=== PATIENT | male | born 1935 | race Caucasian/White ===

== ENCOUNTER → 2017-05-15 | Outpatient (REF) | payer MEDICARE ==
[2017-05-15 14:29] LABS: ERYTHROCYTE SEDIMENTATION RATE 51 mm/hr (0-20)
[2017-05-15 14:42] LABS: URINE TOTAL PROTEIN 54.8 MG/DL (0-12)
[2017-05-15 14:47] LABS: IMMUNOGLOBULIN G 360 MG/DL (681-1648); PROSTATIC SPECIFIC AG MONITOR 1.17 NG/ML (< 4.0); TOTAL PROTEIN 6.8 GM/DL (6.4-8.2)
[2017-05-15 15:39] LABS: IMMUNOGLOBULIN M 12.1 MG/DL (40-230)
[2017-05-17 00:06] LABS: BETA 2 MICROGLOBULIN 2.9 mg/L (0.6-2.4)
[2017-05-17 00:06] LABS: FREE KAPPA LIGHT CHAINS SERUM 376.9 mg/L (3.3-19.4); KAPPA/LAMBDA RATIO SERUM 41.88 (0.26-1.65)
[2017-05-20 11:14] LABS: ALBUMIN % 61.8 % (55.8-66.1); ALPHA-1-GLOBULIN % 4.6 % (2.9-4.9); ALPHA-2-GLOBULINS % 13.1 % (7.1-11.8)
[2017-05-20 11:15] LABS: ALPHA-1-GLOBULINS 0.31 GM/DL (0.17-0.41); ALPHA-2-GLOBULINS 0.89 GM/DL (0.42-0.99); BETA-1-GLOBULINS 0.41 GM/DL (0.28-0.60); BETA-1-GLOBULINS % 6.1 % (4.7-7.2); BETA-2-GLOBULINS 0.41 GM/DL (0.19-0.55); GAMMA GLOBULIN % 8.4 % (11.1-18.8); GAMMA GLOBULINS 0.57 GM/DL (0.65-1.58)
== END ==
LOC: M LAB REF 13:17
DX: D64.9 Anemia, unspecified (principal); Z12.5 Encounter for screening for malignant neoplasm of prostate
CPT/HCPCS: 84165

== ENCOUNTER → 2017-05-28 | Outpatient (REF) | payer MEDICARE ==
[2017-05-28 17:29] LABS: TOTAL PROTEIN,RANDOM URINE 56.5 MG/DL (0.0-12.0)
[2017-05-29 14:24] LABS: IMMUNOTYPING SERUM IGA ABNORMAL (NORMAL); IMMUNOTYPING SERUM KAPPA ABNORMAL (NORMAL)
[2017-05-29 14:26] LABS: IMMUNOTYPE URINE KAPPA ABNORMAL (NORMAL)
[2017-05-31 08:06] LABS: IMMUNOGLOBULIN D 0.14 mg/dL (<14.11)
== END ==
LOC: M LAB REF 16:42
DX: D64.9 Anemia, unspecified (principal)
CPT/HCPCS: 82784

== ENCOUNTER 2017-06-27 06:25 | Day surgery (SDC) | payer MEDICARE ==
[2017-06-27] MEDS: NS 1,000 ML IV (06:30)
[2017-06-27] MEDS ORDERED: PROPOFOL 200 MG/20 ML VIAL As Ordered (06:55)
== END 2017-06-27 09:20 | disposition home or self-care (01) ==
LOC: M OPP 06:25
DX: Z12.11 Encounter for screening for malignant neoplasm of colon (principal); D49.0 Neoplasm of unspecified behavior of digestive system; D12.3 Benign neoplasm of transverse colon; K62.1 Rectal polyp; K57.30 Diverticulosis of large intestine without perforation or abscess without bleeding; K64.8 Other hemorrhoids; I10 Essential (primary) hypertension; E78.5 Hyperlipidemia, unspecified; K21.9 Gastro-esophageal reflux disease without esophagitis; R12 Heartburn; D64.9 Anemia, unspecified; R06.02 Shortness of breath; K44.9 Diaphragmatic hernia without obstruction or gangrene; N40.1 Benign prostatic hyperplasia with lower urinary tract symptoms; Z85.820 Personal history of malignant melanoma of skin; Z88.1 Allergy status to other antibiotic agents; Z88.8 Allergy status to other drugs, medicaments and biological substances; Z79.82 Long term (current) use of aspirin; Z79.899 Other long term (current) drug therapy
CPT/HCPCS: 45385

== ENCOUNTER 2017-10-08 17:28 | Emergency (ER) | payer MEDICARE ==
[2017-10-08 18:36] LABS: HEMATOCRIT 28.1 % (42.0-52.0); MEAN CORPUSCULAR HEMOGLOBIN 29.1 pg (27.0-33.0); MEAN CORPUSCULAR VOLUME 90.9 fl (80.0-96.0); PLATELET COUNT, AUTOMATED 276 10^3/uL (150-450); RED BLOOD COUNT 3.09 10^6/uL (4.30-6.10); RED CELL DISTRIBUTION WIDTH 17.1 % (11.5-14.5); WHITE BLOOD COUNT 7.6 10^3/uL (4.0-10.0)
[2017-10-08 19:05] LABS: ANION GAP 11 MEQ/L (8-16); BLOOD UREA NITROGEN 26 MG/DL (7-18); CALCIUM LEVEL 9.8 MG/DL (8.8-10.2); CARBON DIOXIDE LEVEL 27 MEQ/L (21-32); CHLORIDE LEVEL 98 MEQ/L (98-107); CREATININE FOR GFR 1.48 MG/DL (0.70-1.30); GLOMERULAR FILTRATION RATE 48.2 (>35); GLUCOSE, FASTING 101 MG/DL (70-100); POTASSIUM SERUM 4.8 MEQ/L (3.5-5.1); SODIUM LEVEL 136 MEQ/L (136-145)
[2017-10-08 19:25] LABS: CK-MB VALUE MASS 2.1 NG/ML (<3.6); CPK CREATINE PHOSPHOKINASE 54 U/L (39-308); MB/CK RELATIVE INDEX 3.88 (< OR =4); TROPONIN I < 0.02 NG/ML (< 0.10)
[2017-10-08] MEDS: NS 1,000 ML IV (19:31)
== END 2017-10-08 20:59 | disposition home or self-care (01) ==
LOC: M ED 17:28
DX: R53.1 Weakness (principal); C90.00 Multiple myeloma not having achieved remission; I10 Essential (primary) hypertension; K27.9 Peptic ulcer, site unspecified, unspecified as acute or chronic, without hemorrhage or perforation; E78.5 Hyperlipidemia, unspecified; N40.0 Benign prostatic hyperplasia without lower urinary tract symptoms; K92.1 Melena; Z88.1 Allergy status to other antibiotic agents; Z88.4 Allergy status to anesthetic agent; Z88.8 Allergy status to other drugs, medicaments and biological substances; Z79.899 Other long term (current) drug therapy; Z79.82 Long term (current) use of aspirin
CPT/HCPCS: 93005

== ENCOUNTER → 2017-10-09 | Outpatient (REF) | payer MEDICARE ==
[2017-10-09 17:23] LABS: ANION GAP 8 MEQ/L (8-16); BLOOD UREA NITROGEN 27 MG/DL (7-18); CALCIUM LEVEL 9.6 MG/DL (8.8-10.2); CARBON DIOXIDE LEVEL 28 MEQ/L (21-32); CHLORIDE LEVEL 98 MEQ/L (98-107); CREATININE FOR GFR 1.41 MG/DL (0.70-1.30); GLUCOSE, FASTING 94 MG/DL (70-100); SODIUM LEVEL 134 MEQ/L (136-145)
[2017-10-09 17:29] LABS: POTASSIUM SERUM 5.2 MEQ/L (3.5-5.1)
[2017-10-09 17:31] LABS: TOTAL 25(OH) VITAMIN D 44.8 NG/ML (30.0-100.0)
== END ==
LOC: M LABDRAW1 15:30
DX: M85.89 Other specified disorders of bone density and structure, multiple sites (principal); E55.9 Vitamin D deficiency, unspecified
CPT/HCPCS: 82306

== ENCOUNTER → 2017-10-13 | Outpatient (REF) | payer MEDICARE ==
[2017-10-13 14:48] LABS: IMMUNOGLOBULIN G 320 MG/DL (681-1648); TOTAL PROTEIN 7.3 GM/DL (6.4-8.2)
[2017-10-13 15:50] LABS: IMMUNOGLOBULIN M 11.8 MG/DL (40-230)
[2017-10-14 11:38] LABS: ALBUMIN 4.25 GM/DL (3.29-5.55); ALBUMIN % 58.2 % (55.8-66.1); ALPHA-1-GLOBULIN % 5.6 % (2.9-4.9); ALPHA-1-GLOBULINS 0.41 GM/DL (0.17-0.41); ALPHA-2-GLOBULINS % 13.7 % (7.1-11.8); BETA-1-GLOBULINS 0.47 GM/DL (0.28-0.60); BETA-1-GLOBULINS % 6.4 % (4.7-7.2); BETA-2-GLOBULINS 0.52 GM/DL (0.19-0.55); BETA-2-GLOBULINS % 7.1 % (3.2-6.5); GAMMA GLOBULINS 0.66 GM/DL (0.65-1.58)
[2017-10-15 10:32] LABS: BETA 2 MICROGLOBULIN 4.5 mg/L (0.6-2.4)
[2017-10-15 10:32] LABS: FREE KAPPA LIGHT CHAINS SERUM 564.1 mg/L (3.3-19.4); FREE LAMBDA LIGHT CHAINS SERUM 7.4 mg/L (5.7-26.3); KAPPA/LAMBDA RATIO SERUM 76.23 (0.26-1.65)
== END ==
LOC: M LAB REF 13:33
DX: D64.9 Anemia, unspecified (principal); C90.00 Multiple myeloma not having achieved remission
CPT/HCPCS: 84165

== ENCOUNTER 2017-10-16 09:42 | Outpatient (CLI) | payer MEDICARE ==
[2017-10-16] MEDS: ZOLEDRONIC ACID 5 MG in APPROPRIATE DILUENT 1 EA IV (10:38)
== END 2017-10-16 11:40 | disposition home or self-care (01) ==
LOC: M INFU 09:42
DX: M81.0 Age-related osteoporosis without current pathological fracture (principal); Z85.828 Personal history of other malignant neoplasm of skin; Z88.1 Allergy status to other antibiotic agents; Z88.8 Allergy status to other drugs, medicaments and biological substances; Z79.82 Long term (current) use of aspirin; Z79.899 Other long term (current) drug therapy
CPT/HCPCS: J3489

== ENCOUNTER 2017-10-23 19:16 | Inpatient (IN) | payer MEDICARE ==
[2017-10-23 21:39] LABS: BASO % 0.1 % (0.0-1.0); EOS % 0.1 % (0.0-3.0); HEMATOCRIT 23.3 % (42.0-52.0); HEMOGLOBIN 7.6 g/dl (13.5-17.5); IMMATURE GRANULOCYTE % 4.3 % (0-3.0); LYMPH # 1.8 10^3/uL (1.5-4.5); LYMPH % 12.5 % (24.0-44.0); MEAN CORPUSCULAR HEMOGLOBIN 28.7 pg (27.0-33.0); MEAN CORPUSCULAR HGB CONC 32.6 g/dl (32.0-36.5); MEAN CORPUSCULAR VOLUME 87.9 fl (80.0-96.0); MONO # 1.6 10^3/uL (0.0-0.8); MONO % 10.9 % (0.0-5.0); NEUTROPHILS # 10.6 10^3/uL (1.8-7.7); NEUTROPHILS % 72.1 % (36.0-66.0); PLATELET COUNT, AUTOMATED 372 10^3/uL (150-450); RED BLOOD COUNT 2.65 10^6/uL (4.30-6.10); WHITE BLOOD COUNT 14.6 10^3/uL (4.0-10.0)
[2017-10-23 21:39] LABS: IONIZED CALCIUM 4.3 MG/DL (4.5-5.3)
[2017-10-23] MEDS: HYDROMORPHONE HCL 0.5 MG/ 0.5 ML SYRINGE (J1170 PER 1) IV (21:47)
[2017-10-23 21:51] LABS: ANION GAP 7 MEQ/L (8-16); BLOOD UREA NITROGEN 46 MG/DL (7-18); CALCIUM LEVEL 7.9 MG/DL (8.8-10.2); CARBON DIOXIDE LEVEL 23 MEQ/L (21-32); CHLORIDE LEVEL 99 MEQ/L (98-107); CPK CREATINE PHOSPHOKINASE 40 U/L (39-308); CREATININE FOR GFR 1.36 MG/DL (0.70-1.30); GLOMERULAR FILTRATION RATE 53.1 (>35); GLUCOSE, FASTING 117 MG/DL (70-100); POTASSIUM SERUM 5.3 MEQ/L (3.5-5.1); SODIUM LEVEL 129 MEQ/L (136-145); TROPONIN I < 0.02 NG/ML (< 0.10)
[2017-10-23 21:52] LABS: CK-MB VALUE MASS 2.4 NG/ML (<3.6)
[2017-10-23] MEDS: PANTOPRAZOLE 40MG INJ (PROTONIX) (C9113) IV (23:31)
[2017-10-24 00:47] LABS: FERRITIN 272 NG/ML (26-388); IRON (FE) 44 UG/DL (65-175); PERCENT SATURATION 12.7 % (19.7-50.0); TOTAL IRON BINDING CAPACITY 346 UG/DL (250-450)
[2017-10-24 00:50] LABS: RETIC HEMOGLOBIN EQUIVALENT 29.2 pg (24-36); RETICULOCYTE # 51.5 10^9/L (17-77); RETICULOCYTE % 1.9 % (0.5-1.5)
[2017-10-24] MEDS: NS 1,000 ML IV (01:22)
[2017-10-24 01:39] LABS: IMMEDIATE SPIN CROSSMATCH 1 1
[2017-10-24] MEDS: ACYCLOVIR 200 MG CAPSULE PO ×3 (01:43→22:08)
[2017-10-24] MEDS: ROSUVASTATIN 10 MG TAB (CRESTOR) PO ×2 (02:43→22:08)
[2017-10-24] MEDS: MORPHINE 4 MG/ML 1ML VIAL/SYRINGE (J2270) IV ×3 (02:45→20:39)
[2017-10-24] MEDS: CYCLOBENZAPRINE 10 MG TAB PO ×2 (03:17→15:24)
[2017-10-24 04:59] LABS: BASO % 0.2 % (0.0-1.0); EOS # 0.1 10^3/uL (0.0-0.50); EOS % 0.7 % (0.0-3.0); HEMATOCRIT 25.8 % (42.0-52.0); HEMOGLOBIN 8.4 g/dl (13.5-17.5); IMMATURE GRANULOCYTE % 4.1 % (0-3.0); LYMPH # 1.9 10^3/uL (1.5-4.5); LYMPH % 16.4 % (24.0-44.0); MEAN CORPUSCULAR HEMOGLOBIN 29.2 pg (27.0-33.0); MEAN CORPUSCULAR HGB CONC 32.6 g/dl (32.0-36.5); MEAN CORPUSCULAR VOLUME 89.6 fl (80.0-96.0); MONO # 1.3 10^3/uL (0.0-0.8); MONO % 11.8 % (0.0-5.0); NEUTROPHILS # 7.6 10^3/uL (1.8-7.7); NEUTROPHILS % 66.8 % (36.0-66.0); PLATELET COUNT, AUTOMATED 288 10^3/uL (150-450); RED BLOOD COUNT 2.88 10^6/uL (4.30-6.10); RED CELL DISTRIBUTION WIDTH 17.1 % (11.5-14.5); WHITE BLOOD COUNT 11.3 10^3/uL (4.0-10.0)
[2017-10-24 05:17] LABS: ALBUMIN 3.3 GM/DL (3.2-5.2); ALBUMIN/GLOBULIN RATIO 0.94 (1.00-1.93); ALKALINE PHOSPHATASE 96 U/L (45-117); ALT/SGPT 27 U/L (12-78); ANION GAP 6 MEQ/L (8-16); AST/SGOT 18 U/L (7-37); BILIRUBIN,TOTAL 0.3 MG/DL (0.2-1.0); BLOOD UREA NITROGEN 41 MG/DL (7-18); CALCIUM LEVEL 7.9 MG/DL (8.8-10.2); CARBON DIOXIDE LEVEL 25 MEQ/L (21-32); CHLORIDE LEVEL 102 MEQ/L (98-107); GLUCOSE, FASTING 92 MG/DL (70-100); SODIUM LEVEL 133 MEQ/L (136-145); TOTAL PROTEIN 6.8 GM/DL (6.4-8.2)
[2017-10-24 05:23] LABS: POTASSIUM SERUM 5.3 MEQ/L (3.5-5.1)
[2017-10-24] MEDS ORDERED: HEPARIN SOD (PORCINE) 5000 UNITS/ML VIAL SC (06:00)
[2017-10-24 08:32] LABS: INR 1.06
[2017-10-24] MEDS: PANTOPRAZOLE 40MG INJ (PROTONIX) (C9113) IV ×2 (08:37→22:08)
[2017-10-24] MEDS: FERROUS SULFATE 325MG TAB PO (08:37)
[2017-10-24] MEDS: CYANOCOBALAMIN 500 MCG TAB PO (08:37)
[2017-10-24] MEDS: TELMISARTAN 20 MG TAB PO (08:38)
[2017-10-24] MEDS: traMADol 50 MG TAB PO ×2 (08:38→22:13)
[2017-10-24] MEDS ORDERED: ASPIRIN 81 MG ENTERIC TAB PO (09:00)
[2017-10-24] MEDS ORDERED: PANTOPRAZOLE 40MG TAB (PROTONIX) PO (09:00)
[2017-10-24] MEDS: MOM 30ML SUSPENSION UDC PO (11:37)
[2017-10-24] MEDS: PERCOCET 5MG/325MG TAB PO ×3 (11:38→20:40)
[2017-10-24 13:17] LABS: HEMATOCRIT 24.1 % (42.0-52.0); MEAN CORPUSCULAR HEMOGLOBIN 28.9 pg (27.0-33.0); MEAN CORPUSCULAR HGB CONC 33.2 g/dl (32.0-36.5); PLATELET COUNT, AUTOMATED 269 10^3/uL (150-450); RED BLOOD COUNT 2.77 10^6/uL (4.30-6.10); WHITE BLOOD COUNT 10.7 10^3/uL (4.0-10.0)
[2017-10-24 14:28] LABS: MAGNESIUM LEVEL 3.2 MG/DL (1.8-2.4)
[2017-10-24 20:28] LABS: HEMATOCRIT 25.4 % (42.0-52.0); HEMOGLOBIN 8.2 g/dl (13.5-17.5); MEAN CORPUSCULAR HEMOGLOBIN 28.9 pg (27.0-33.0); MEAN CORPUSCULAR HGB CONC 32.3 g/dl (32.0-36.5); MEAN CORPUSCULAR VOLUME 89.4 fl (80.0-96.0); PLATELET COUNT, AUTOMATED 299 10^3/uL (150-450); RED BLOOD COUNT 2.84 10^6/uL (4.30-6.10); WHITE BLOOD COUNT 11.8 10^3/uL (4.0-10.0)
[2017-10-24] MEDS ORDERED: PROHANCE 279.3MG/ML 5ML VIAL (A9576) As Ordered (21:11)
[2017-10-25 04:39] LABS: HEMOGLOBIN 8.4 g/dl (13.5-17.5); MEAN CORPUSCULAR HEMOGLOBIN 28.8 pg (27.0-33.0); MEAN CORPUSCULAR HGB CONC 32.3 g/dl (32.0-36.5); PLATELET COUNT, AUTOMATED 303 10^3/uL (150-450); RED BLOOD COUNT 2.92 10^6/uL (4.30-6.10); RED CELL DISTRIBUTION WIDTH 17.3 % (11.5-14.5); WHITE BLOOD COUNT 10.6 10^3/uL (4.0-10.0)
[2017-10-25 04:59] LABS: ANION GAP 6 MEQ/L (8-16); BLOOD UREA NITROGEN 34 MG/DL (7-18); CALCIUM LEVEL 7.7 MG/DL (8.8-10.2); CARBON DIOXIDE LEVEL 26 MEQ/L (21-32); CHLORIDE LEVEL 102 MEQ/L (98-107); CREATININE FOR GFR 1.36 MG/DL (0.70-1.30); GLOMERULAR FILTRATION RATE 53.1 (>35); GLUCOSE, FASTING 91 MG/DL (70-100); MAGNESIUM LEVEL 3.2 MG/DL (1.8-2.4); POTASSIUM SERUM 4.5 MEQ/L (3.5-5.1); SODIUM LEVEL 134 MEQ/L (136-145)
[2017-10-25] MEDS: FERROUS SULFATE 325MG TAB PO (09:59)
[2017-10-25] MEDS: MOM 30ML SUSPENSION UDC PO (09:59)
[2017-10-25] MEDS: ACYCLOVIR 200 MG CAPSULE PO ×2 (10:00→20:31)
[2017-10-25] MEDS: CYANOCOBALAMIN 500 MCG TAB PO (10:00)
[2017-10-25] MEDS: traMADol 50 MG TAB PO (10:01)
[2017-10-25] MEDS: PANTOPRAZOLE 40MG INJ (PROTONIX) (C9113) IV ×2 (10:02→20:32)
[2017-10-25] MEDS: TELMISARTAN 20 MG TAB PO (10:02)
[2017-10-25] MEDS: ROSUVASTATIN 10 MG TAB (CRESTOR) PO (20:31)
[2017-10-25] MEDS: PERCOCET 5MG/325MG TAB PO (20:32)
[2017-10-26 04:27] LABS: HEMOGLOBIN 8.4 g/dl (13.5-17.5); MEAN CORPUSCULAR HEMOGLOBIN 29.1 pg (27.0-33.0); MEAN CORPUSCULAR HGB CONC 32.3 g/dl (32.0-36.5); PLATELET COUNT, AUTOMATED 293 10^3/uL (150-450); RED BLOOD COUNT 2.89 10^6/uL (4.30-6.10); RED CELL DISTRIBUTION WIDTH 17.7 % (11.5-14.5); WHITE BLOOD COUNT 10.5 10^3/uL (4.0-10.0)
[2017-10-26 04:42] LABS: ANION GAP 8 MEQ/L (8-16); BLOOD UREA NITROGEN 26 MG/DL (7-18); CALCIUM LEVEL 7.7 MG/DL (8.8-10.2); CARBON DIOXIDE LEVEL 24 MEQ/L (21-32); CHLORIDE LEVEL 102 MEQ/L (98-107); CREATININE FOR GFR 1.28 MG/DL (0.70-1.30); GLUCOSE, FASTING 101 MG/DL (70-100); MAGNESIUM LEVEL 3.3 MG/DL (1.8-2.4); POTASSIUM SERUM 4.5 MEQ/L (3.5-5.1); SODIUM LEVEL 134 MEQ/L (136-145)
[2017-10-26] MEDS: TELMISARTAN 20 MG TAB PO (09:00)
[2017-10-26] MEDS: PANTOPRAZOLE 40MG INJ (PROTONIX) (C9113) IV ×2 (10:25→20:16)
[2017-10-26] MEDS: ACYCLOVIR 200 MG CAPSULE PO ×2 (10:26→20:16)
[2017-10-26] MEDS: FERROUS SULFATE 325MG TAB PO (10:28)
[2017-10-26] MEDS: CYANOCOBALAMIN 500 MCG TAB PO (10:28)
[2017-10-26] MEDS: MOM 30ML SUSPENSION UDC PO (13:22)
[2017-10-26] MEDS: CYCLOBENZAPRINE 10 MG TAB PO (16:39)
[2017-10-26] MEDS: ACETAMINOPHEN TAB 650MG DOSE (2X325MG) PO (16:40)
[2017-10-26] MEDS ORDERED: MIRALAX *UNIT DOSE* 17GM PACKET PO (17:00)
[2017-10-26] MEDS: ROSUVASTATIN 10 MG TAB (CRESTOR) PO (20:16)
[2017-10-27] MEDS: PERCOCET 5MG/325MG TAB PO (01:51)
[2017-10-27 04:39] LABS: HEMATOCRIT 25.3 % (42.0-52.0); HEMOGLOBIN 8.3 g/dl (13.5-17.5); MEAN CORPUSCULAR HEMOGLOBIN 29.3 pg (27.0-33.0); MEAN CORPUSCULAR HGB CONC 32.8 g/dl (32.0-36.5); MEAN CORPUSCULAR VOLUME 89.4 fl (80.0-96.0); PLATELET COUNT, AUTOMATED 303 10^3/uL (150-450); RED BLOOD COUNT 2.83 10^6/uL (4.30-6.10); RED CELL DISTRIBUTION WIDTH 17.3 % (11.5-14.5); WHITE BLOOD COUNT 10.2 10^3/uL (4.0-10.0)
[2017-10-27 04:50] LABS: ANION GAP 7 MEQ/L (8-16); BLOOD UREA NITROGEN 23 MG/DL (7-18); CALCIUM LEVEL 7.5 MG/DL (8.8-10.2); CARBON DIOXIDE LEVEL 24 MEQ/L (21-32); CHLORIDE LEVEL 103 MEQ/L (98-107); GLUCOSE, FASTING 105 MG/DL (70-100); MAGNESIUM LEVEL 3.4 MG/DL (1.8-2.4); POTASSIUM SERUM 4.8 MEQ/L (3.5-5.1); SODIUM LEVEL 134 MEQ/L (136-145)
[2017-10-27] MEDS: TELMISARTAN 20 MG TAB PO (09:00)
[2017-10-27] MEDS: FERROUS SULFATE 325MG TAB PO (09:09)
[2017-10-27] MEDS: PANTOPRAZOLE 40MG INJ (PROTONIX) (C9113) IV ×2 (09:09→20:53)
[2017-10-27] MEDS: ACYCLOVIR 200 MG CAPSULE PO ×2 (09:10→20:54)
[2017-10-27] MEDS: CYANOCOBALAMIN 500 MCG TAB PO (09:10)
[2017-10-27] MEDS ORDERED: SLF 3 ML SYR IV (11:30)
[2017-10-27] MEDS: SLF 3 ML SYR IV ×2 (14:47→20:54)
[2017-10-27] MEDS: traMADol 50 MG TAB PO (15:14)
[2017-10-27] MEDS: PAMIDRONATE DISODIUM FOR IV (20:53)
[2017-10-27] MEDS: D5W IV (20:53)
[2017-10-27] MEDS: ROSUVASTATIN 10 MG TAB (CRESTOR) PO (20:54)
[2017-10-28 05:36] LABS: HEMOGLOBIN 9.2 g/dl (13.5-17.5); MEAN CORPUSCULAR HEMOGLOBIN 29.6 pg (27.0-33.0); MEAN CORPUSCULAR HGB CONC 32.9 g/dl (32.0-36.5); PLATELET COUNT, AUTOMATED 320 10^3/uL (150-450); RED BLOOD COUNT 3.11 10^6/uL (4.30-6.10); RED CELL DISTRIBUTION WIDTH 17.3 % (11.5-14.5); WHITE BLOOD COUNT 12.5 10^3/uL (4.0-10.0)
[2017-10-28 05:51] LABS: ANION GAP 7 MEQ/L (8-16); BLOOD UREA NITROGEN 22 MG/DL (7-18); CALCIUM LEVEL 7.7 MG/DL (8.8-10.2); CARBON DIOXIDE LEVEL 23 MEQ/L (21-32); CHLORIDE LEVEL 100 MEQ/L (98-107); CREATININE FOR GFR 1.19 MG/DL (0.70-1.30); GLOMERULAR FILTRATION RATE > 60.0 (>35); GLUCOSE, FASTING 161 MG/DL (70-100); MAGNESIUM LEVEL 3.3 MG/DL (1.8-2.4); SODIUM LEVEL 130 MEQ/L (136-145)
[2017-10-28 05:56] LABS: POTASSIUM SERUM 5.2 MEQ/L (3.5-5.1)
[2017-10-28] MEDS: SLF 3 ML SYR IV ×3 (06:00→21:29)
[2017-10-28] MEDS: ACYCLOVIR 200 MG CAPSULE PO ×2 (09:00→21:28)
[2017-10-28] MEDS ORDERED: NS 1,000 ML IV (09:00)
[2017-10-28] MEDS: TELMISARTAN 20 MG TAB PO (09:00)
[2017-10-28] MEDS: PANTOPRAZOLE 40MG INJ (PROTONIX) (C9113) IV ×2 (09:00→21:29)
[2017-10-28] MEDS ORDERED: PROPOFOL 200 MG/20 ML VIAL As Ordered (11:34)
[2017-10-28] MEDS ORDERED: MIDAZOLAM INJ 2 MG/2 ML VIAL (J2250) As Ordered (11:34)
[2017-10-28] MEDS ORDERED: fentaNYL 250 MCG/5 ML INJECTION (J3010) As Ordered (11:34)
[2017-10-28] MEDS ORDERED: ROCURONIUM BROMIDE 50 MG/5 ML VIAL As Ordered (11:34)
[2017-10-28] MEDS ORDERED: LIDOCAINE 2% INJ 100 MG/5 ML SDV (FOR ANES.) As Ordered (11:34)
[2017-10-28] MEDS ORDERED: ETOMIDATE INJ 20MG/10ML VIAL As Ordered (12:16)
[2017-10-28 12:28] LABS: POTASSIUM SERUM 4.9 MEQ/L (3.5-5.1)
[2017-10-28] MEDS ORDERED: PHENYLEPHRINE INJ 10MG/ML VIAL (J2370) As Ordered (13:03)
[2017-10-28] MEDS ORDERED: dexameTHASONE 4 MG/ML 1ML VIAL (J1100) As Ordered (13:11)
[2017-10-28] MEDS ORDERED: ONDANSETRON 4MG/2ML VIAL (J2405) As Ordered ×2 (13:11→15:20)
[2017-10-28] MEDS: ceFAZolin 2 GM/D5W 50 ML IV BAG (J0690 PER 500MG) As Ordered (13:53)
[2017-10-28] MEDS: ISOVUE-300 61% 50ML VIAL (Q9967) As Ordered (13:54)
[2017-10-28] MEDS ORDERED: NEOSTIGMINE 10 MG/10 ML VIAL (J2710) As Ordered ×2 (14:00)
[2017-10-28] MEDS ORDERED: GLYCOPYRROLATE INJ 0.2 MG/ML 2 ML VIAL As Ordered ×2 (14:00)
[2017-10-28] MEDS: BACITRACIN PWD 50,000 UNITS VIAL As Ordered (14:13)
[2017-10-28] MEDS: BUPIVACAINE/EPIN 0.25% 30 ML VIAL As Ordered (14:15)
[2017-10-28] MEDS: ONDANSETRON 4MG/2ML VIAL (J2405) IV (15:23)
[2017-10-28] MEDS ORDERED: MORPHINE 10 MG/ML 1ML VIAL (J2270) IV (15:45)
[2017-10-28] MEDS ORDERED: fentaNYL 100 MCG/2 ML INJECTION (J3010) IV (15:45)
[2017-10-28] MEDS: LR 1,000 ML IV ×3 (15:45→23:14)
[2017-10-28] MEDS: CYANOCOBALAMIN 500 MCG TAB PO (16:33)
[2017-10-28] MEDS: FERROUS SULFATE 325MG TAB PO (16:34)
[2017-10-28] MEDS: DEXAMETHASONE 4 MG PO (16:38)
[2017-10-28] MEDS: ROSUVASTATIN 10 MG TAB (CRESTOR) PO (21:28)
[2017-10-28] MEDS: traMADol 50 MG TAB PO (23:42)
[2017-10-29] MEDS: SLF 3 ML SYR IV ×2 (05:01→14:00)
[2017-10-29 07:19] LABS: HEMATOCRIT 26.4 % (42.0-52.0); HEMOGLOBIN 8.5 g/dl (13.5-17.5); MEAN CORPUSCULAR HEMOGLOBIN 29.2 pg (27.0-33.0); MEAN CORPUSCULAR HGB CONC 32.2 g/dl (32.0-36.5); MEAN CORPUSCULAR VOLUME 90.7 fl (80.0-96.0); PLATELET COUNT, AUTOMATED 327 10^3/uL (150-450); RED BLOOD COUNT 2.91 10^6/uL (4.30-6.10); RED CELL DISTRIBUTION WIDTH 17.4 % (11.5-14.5); WHITE BLOOD COUNT 13.1 10^3/uL (4.0-10.0)
[2017-10-29 07:45] LABS: ANION GAP 8 MEQ/L (8-16); BLOOD UREA NITROGEN 27 MG/DL (7-18); CALCIUM LEVEL 7.7 MG/DL (8.8-10.2); CARBON DIOXIDE LEVEL 22 MEQ/L (21-32); CHLORIDE LEVEL 104 MEQ/L (98-107); CREATININE FOR GFR 1.31 MG/DL (0.70-1.30); GLOMERULAR FILTRATION RATE 55.5 (>35); GLUCOSE, FASTING 186 MG/DL (70-100); MAGNESIUM LEVEL 3.3 MG/DL (1.8-2.4); SODIUM LEVEL 134 MEQ/L (136-145)
[2017-10-29] MEDS: FERROUS SULFATE 325MG TAB PO (08:17)
[2017-10-29] MEDS: PANTOPRAZOLE 40MG INJ (PROTONIX) (C9113) IV (08:17)
[2017-10-29] MEDS: ACYCLOVIR 200 MG CAPSULE PO (08:18)
[2017-10-29] MEDS: TELMISARTAN 20 MG TAB PO (08:18)
[2017-10-29] MEDS: CYANOCOBALAMIN 500 MCG TAB PO (08:18)
== END 2017-10-29 16:56 | disposition home or self-care (01) | DRG 516 ==
LOC: M ED INP 10-24 01:37 → M MS4PR 10-28 23:26 → M ICU 10-24 02:16 → M PCU 10-27 10:59 → M ED 19:16
PROVIDERS: Internal Medicine
PROC: 0PU43JZ Supplement Thoracic Vertebra with Synthetic Substitute, Percutaneous Approach (ICD-10-PCS; 2017-10-28 11:30)
PROC: 30233N1 Transfusion of Nonautologous Red Blood Cells into Peripheral Vein, Percutaneous Approach (ICD-10-PCS; principal; 2017-10-28 12:33)
DX: M84.58XA Pathological fracture in neoplastic disease, other specified site, initial encounter for fracture (principal); C90.00 Multiple myeloma not having achieved remission; D62 Acute posthemorrhagic anemia; E87.1 Hypo-osmolality and hyponatremia; K57.30 Diverticulosis of large intestine without perforation or abscess without bleeding; I10 Essential (primary) hypertension; K27.9 Peptic ulcer, site unspecified, unspecified as acute or chronic, without hemorrhage or perforation; M40.204 Unspecified kyphosis, thoracic region; M51.26 Other intervertebral disc displacement, lumbar region; Z79.899 Other long term (current) drug therapy; Z79.82 Long term (current) use of aspirin; Z88.1 Allergy status to other antibiotic agents; Z88.8 Allergy status to other drugs, medicaments and biological substances; E78.5 Hyperlipidemia, unspecified; N40.0 Benign prostatic hyperplasia without lower urinary tract symptoms; I73.9 Peripheral vascular disease, unspecified; E87.5 Hyperkalemia; E86.0 Dehydration

== ENCOUNTER → 2017-11-06 | Outpatient (REF) | payer MEDICARE ==
[2017-11-06 16:49] LABS: INR 1.02; PROTHROMBIN TIME 13.5 SECONDS (12.1-14.4)
[2017-11-06 16:50] LABS: PARTIAL THROMBOPLASTIN TIME 26.1 SECONDS (25.4-37.6)
[2017-11-06 19:10] LABS: TOTAL PROTEIN 6.6 GM/DL (6.4-8.2)
[2017-11-10 00:06] LABS: FREE KAPPA LIGHT CHAINS SERUM 86.4 mg/L (3.3-19.4); FREE LAMBDA LIGHT CHAINS SERUM 7.5 mg/L (5.7-26.3); KAPPA/LAMBDA RATIO SERUM 11.52 (0.26-1.65)
[2017-11-10 00:06] LABS: BETA 2 MICROGLOBULIN 2.4 mg/L (0.6-2.4)
[2017-11-12 11:36] LABS: ALBUMIN 3.53 GM/DL (3.29-5.55); ALBUMIN % 53.5 % (55.8-66.1); ALPHA-1-GLOBULINS 0.59 GM/DL (0.17-0.41); ALPHA-2-GLOBULINS 1.15 GM/DL (0.42-0.99); ALPHA-2-GLOBULINS % 17.4 % (7.1-11.8); BETA-1-GLOBULINS 0.46 GM/DL (0.28-0.60); BETA-1-GLOBULINS % 6.9 % (4.7-7.2); BETA-2-GLOBULINS % 6.1 % (3.2-6.5); GAMMA GLOBULIN % 7.1 % (11.1-18.8)
[2017-11-12 11:37] LABS: GAMMA GLOBULINS 0.47 GM/DL (0.65-1.58)
== END ==
LOC: M LAB REF 16:12
DX: C90.00 Multiple myeloma not having achieved remission (principal); D64.9 Anemia, unspecified
CPT/HCPCS: 84165

== ENCOUNTER → 2017-11-10 | Outpatient (CLI) | payer MEDICARE ==
[~2017-11-10] MED LIST: PROHANCE 279.3MG/ML 5ML VIAL (A9576) As Ordered
== END ==
LOC: M RAD 09:22
DX: S22.040A Wedge compression fracture of fourth thoracic vertebra, initial encounter for closed fracture (principal); S22.050A Wedge compression fracture of T5-T6 vertebra, initial encounter for closed fracture; S22.060A Wedge compression fracture of T7-T8 vertebra, initial encounter for closed fracture; S22.080A Wedge compression fracture of T11-T12 vertebra, initial encounter for closed fracture; X58.XXXA Exposure to other specified factors, initial encounter; Y92.89 Other specified places as the place of occurrence of the external cause; C90.00 Multiple myeloma not having achieved remission
CPT/HCPCS: A9576

== ENCOUNTER → 2017-11-16 | Outpatient (CLI) | payer MEDICARE ==
[2017-11-17 08:31] LABS: IMMEDIATE SPIN CROSSMATCH 1 2
== END ==
LOC: M LAB 10:37
DX: C90.00 Multiple myeloma not having achieved remission (principal); D64.9 Anemia, unspecified
CPT/HCPCS: 36415

== ENCOUNTER 2017-11-17 07:56 | Outpatient (CLI) | payer MEDICARE ==
[2017-11-17] MEDS: ACETAMINOPHEN TAB 650MG DOSE (2X325MG) PO (08:11)
[2017-11-17] MEDS: diphenhydrAMINE 50 MG CAP PO (08:11)
== END 2017-11-17 12:30 | disposition home or self-care (01) ==
LOC: M INFU 07:56
DX: D64.9 Anemia, unspecified (principal); C90.00 Multiple myeloma not having achieved remission; Z85.828 Personal history of other malignant neoplasm of skin; Z88.1 Allergy status to other antibiotic agents; Z88.8 Allergy status to other drugs, medicaments and biological substances; Z79.82 Long term (current) use of aspirin; Z79.899 Other long term (current) drug therapy
CPT/HCPCS: 36430

== ENCOUNTER → 2017-12-22 | Outpatient (CLI) | payer MEDICARE | LOC: M CARPUL 10:21 | DX: R00.2 Palpitations (principal); R60.0 Localized edema | CPT/HCPCS: 93306 ==

== ENCOUNTER 2017-12-30 11:36 | Emergency (ER) | payer MEDICARE ==
[2017-12-30 12:35] LABS: BASO # 0.1 10^3/uL (0.0-0.2); BASO % 0.5 % (0.0-1.0); EOS # 0.3 10^3/uL (0.0-0.50); EOS % 2.5 % (0.0-3.0); HEMATOCRIT 31.6 % (42.0-52.0); HEMOGLOBIN 10.3 g/dl (13.5-17.5); IMMATURE GRANULOCYTE % 3.5 % (0-3.0); LYMPH # 0.5 10^3/uL (1.5-4.5); LYMPH % 5.1 % (24.0-44.0); MEAN CORPUSCULAR HEMOGLOBIN 28.7 pg (27.0-33.0); MEAN CORPUSCULAR HGB CONC 32.6 g/dl (32.0-36.5); MONO # 0.6 10^3/uL (0.0-0.8); NEUTROPHILS # 8.3 10^3/uL (1.8-7.7); NEUTROPHILS % 82.4 % (36.0-66.0); PLATELET COUNT, AUTOMATED 315 10^3/uL (150-450); RED BLOOD COUNT 3.59 10^6/uL (4.30-6.10); RED CELL DISTRIBUTION WIDTH 19.7 % (11.5-14.5); WHITE BLOOD COUNT 10.1 10^3/uL (4.0-10.0)
[2017-12-30 12:49] LABS: INR 1.11; PROTHROMBIN TIME 14.4 SECONDS (12.1-14.4)
[2017-12-30 12:54] LABS: INFLUENZA A AMPLIFICATION NEGATIVE (NEGATIVE); INFLUENZA B AMPLIFICATION NEGATIVE (NEGATIVE)
[2017-12-30 12:57] LABS: VENOUS BASE EXCESS -1.5 (-2.0-2.0); VENOUS HCO3 22.6 MEQ/L (23.0-27.0); VENOUS O2 SATURATION 96.2 % (60.0-80.0); VENOUS PARTIAL PRESSURE CO2 35.8 mmHg (38.0-50.0); VENOUS PARTIAL PRESSURE O2 80.8 mmHg (30.0-50.0); VENOUS PH 7.418 UNITS (7.330-7.430); VENOUS STANDARD HCO3 23.2 MEQ/L; VENOUS TOTAL CO2 23.7 MEQ/L (24.0-28.0)
[2017-12-30 13:23] LABS: LACTIC ACID SEPSIS PROTOCOL 2.1 MMOL/L (0.4-2.0)
[2017-12-30] MEDS: NS 500 ML IV (13:30)
[2017-12-30 13:43] LABS: ALBUMIN 2.4 GM/DL (3.2-5.2); ALBUMIN/GLOBULIN RATIO 0.63 (1.00-1.93); ALKALINE PHOSPHATASE 128 U/L (45-117); ALT/SGPT 59 U/L (12-78); ANION GAP 12 MEQ/L (8-16); AST/SGOT 39 U/L (7-37); BILIRUBIN,DIRECT 0.2 MG/DL (0.0-0.2); BILIRUBIN,TOTAL 0.4 MG/DL (0.2-1.0); BLOOD UREA NITROGEN 18 MG/DL (7-18); CALCIUM LEVEL 8.5 MG/DL (8.8-10.2); CARBON DIOXIDE LEVEL 21 MEQ/L (21-32); CHLORIDE LEVEL 94 MEQ/L (98-107); CPK CREATINE PHOSPHOKINASE 26 U/L (39-308); CREATININE FOR GFR 0.98 MG/DL (0.70-1.30); GLOMERULAR FILTRATION RATE > 60.0 (>35); GLUCOSE, FASTING 166 MG/DL (70-100); MB/CK RELATIVE INDEX 5.77 (< OR =4); NT-PRO BNP 380 PG/ML (<450); SODIUM LEVEL 127 MEQ/L (136-145); THYROID STIMULATING HORMONE 0.529 uIU/ML (0.358-3.740); TOTAL PROTEIN 6.2 GM/DL (6.4-8.2); TROPONIN I < 0.02 NG/ML (< 0.10)
[2017-12-30] MEDS ORDERED: ISOVUE-370 76% 100ML VIAL (Q9967) As Ordered (15:17)
[2017-12-30] MEDS: LevoFLOXacin 750 MG TABLET PO (17:03)
== END 2017-12-30 17:08 | disposition home or self-care (01) ==
LOC: M ED 11:36
DX: J18.9 Pneumonia, unspecified organism (principal); C90.00 Multiple myeloma not having achieved remission; D64.9 Anemia, unspecified; I10 Essential (primary) hypertension; E78.5 Hyperlipidemia, unspecified; N40.0 Benign prostatic hyperplasia without lower urinary tract symptoms; D50.9 Iron deficiency anemia, unspecified; I51.7 Cardiomegaly; K44.9 Diaphragmatic hernia without obstruction or gangrene; Z79.82 Long term (current) use of aspirin; Z79.899 Other long term (current) drug therapy; Z88.1 Allergy status to other antibiotic agents; Z88.8 Allergy status to other drugs, medicaments and biological substances
CPT/HCPCS: Q9967

== ENCOUNTER → 2017-12-30 | Outpatient (REF) | payer MEDICARE ==
[2017-12-30 14:29] LABS: IMMUNOGLOBULIN G 397 MG/DL (681-1648); IMMUNOGLOBULIN M 31 MG/DL (40-230); TOTAL PROTEIN 5.7 GM/DL (6.4-8.2)
[2018-01-01 00:11] LABS: FREE KAPPA LIGHT CHAINS SERUM 27.4 mg/L (3.3-19.4); FREE LAMBDA LIGHT CHAINS SERUM 26.6 mg/L (5.7-26.3); KAPPA/LAMBDA RATIO SERUM 1.03 (0.26-1.65)
[2018-01-01 11:13] LABS: ALBUMIN 2.75 GM/DL (3.29-5.55); ALBUMIN % 48.2 % (55.8-66.1); ALPHA-1-GLOBULIN % 11.2 % (2.9-4.9); ALPHA-1-GLOBULINS 0.64 GM/DL (0.17-0.41); ALPHA-2-GLOBULINS 1.25 GM/DL (0.42-0.99); ALPHA-2-GLOBULINS % 21.9 % (7.1-11.8); BETA-1-GLOBULINS 0.33 GM/DL (0.28-0.60); BETA-1-GLOBULINS % 5.8 % (4.7-7.2)
[2018-01-01 11:14] LABS: BETA-2-GLOBULINS 0.34 GM/DL (0.19-0.55); GAMMA GLOBULIN % 6.9 % (11.1-18.8); GAMMA GLOBULINS 0.39 GM/DL (0.65-1.58)
== END ==
LOC: M LAB REF 13:43
DX: C90.00 Multiple myeloma not having achieved remission (principal); D64.9 Anemia, unspecified

== ENCOUNTER → 2018-01-09 | Outpatient (REF) | payer MEDICARE ==
[2018-01-09 16:19] LABS: ANION GAP 8 MEQ/L (8-16); BLOOD UREA NITROGEN 17 MG/DL (7-18); CALCIUM LEVEL 8.3 MG/DL (8.8-10.2); CARBON DIOXIDE LEVEL 27 MEQ/L (21-32); CHLORIDE LEVEL 99 MEQ/L (98-107); CREATININE FOR GFR 1.05 MG/DL (0.70-1.30); GLOMERULAR FILTRATION RATE > 60.0 (>35); GLUCOSE, FASTING 99 MG/DL (70-100); POTASSIUM SERUM 5.4 MEQ/L (3.5-5.1); SODIUM LEVEL 134 MEQ/L (136-145)
== END ==
LOC: M LABDRAW1 15:39
DX: M85.89 Other specified disorders of bone density and structure, multiple sites (principal)
CPT/HCPCS: 80048

== ENCOUNTER → 2018-07-27 | Outpatient (CLI) | payer MEDICARE ==
[~2018-07-27] MED LIST changes: +ACYC400T PO; +ARTI99.0 OP; +ASPI81TA85 PO; +ASPI81TAEC PO; +AVEL1TAB2 PO; +BACT800T5 PO; +CALC1TAB23 PO; +CALC1TAB42 PO; +CRES20TA2 PO; +DEXA4TA PO; +FERR325T3 PO; +FLOM0.4C39 PO; +FOSA70TA PO; +LEVA750T7 PO; +LIPI20TA PO; +MICA80TA2 PO; +MIRA3350 PO; +OMEP20CA3 PO; +OXYC-403 PO; +PANT40TA3 PO; -PROHANCE 279.3MG/ML 5ML VIAL (A9576) As Ordered; +RECL5INJ2 IV; +REFR1GEL OP; +REST0.05 OP; +REVL10CA2 PO; +TELM1TAB PO; +TELM1TAB33 PO; +TRAM50TA2 PO; +TYLE325T5 PO; +VITA-122 PO; +VITA100018 PO; +albuterol mdi; +prednisone
--- NOTE | 2018-07-27 10:23 | REP ---
LEFT HIP: Two views. HISTORY: Multiple myeloma. Comparison radiographs are from May 16, 2017. FINDINGS: AP and frog-leg views of the left hip demonstrate a somewhat mottled radiolucent pattern throughout the visualized bony structures. There are innumerable tiny radiolucencies in the proximal femur and visualized left hemipelvis. IMPRESSION: Findings suspicious for extensive myelomatous involvement with numerous small radiolucencies throughout the proximal femur and left kendal pelvis. No large lesion is seen. Electronically Signed by Miguel Esteban MD 07/27/2018 11:39 A
== END ==
LOC: M RAD 09:07
PROVIDERS: ATTEND Internal Medicine Medical Oncology
DX: C90.00 Multiple myeloma not having achieved remission (principal); M25.551 Pain in right hip

== ENCOUNTER → 2018-08-25 | Outpatient (REF) | payer MEDICARE ==
[2018-08-25 16:01] LABS: BLOOD UREA NITROGEN 17 MG/DL (7-18); CALCIUM LEVEL 8.1 MG/DL (8.8-10.2); CARBON DIOXIDE LEVEL 23 MEQ/L (21-32); CHLORIDE LEVEL 107 MEQ/L (98-107); CREATININE FOR GFR 1.21 MG/DL (0.70-1.30); GLOMERULAR FILTRATION RATE > 60.0 (>35); GLUCOSE, FASTING 96 MG/DL (70-100); POTASSIUM SERUM 4.6 MEQ/L (3.5-5.1); SODIUM LEVEL 139 MEQ/L (136-145)
== END ==
LOC: M LABDRAW1 11:39
PROVIDERS: ATTEND Internal Medicine Endocrinology, Diabetes & Metabolism
DX: M85.89 Other specified disorders of bone density and structure, multiple sites (principal)

== ENCOUNTER → 2018-08-25 | Outpatient (CLI) | payer MEDICARE ==
--- NOTE | 2018-08-25 14:59 | REP ---
RIGHT HIP, TWO VIEWS: HISTORY: Hip pain. There is no acute fracture or dislocation. There is mild narrowing of the joint space with associated sclerosis. IMPRESSION: Degenerative change as described above. Electronically Signed by Everton Garsia MD 08/25/2018 03:13 P
--- NOTE | 2018-08-25 15:02 | REP ---
RIGHT FEMUR, TWO VIEWS: HISTORY: Right hip pain. The proximal third of the femur is not seen in the present radiographs. There is no acute fracture or dislocation. There is moderate narrowing of the knee joint space and patellofemoral joint space. IMPRESSION: There is no acute fracture or dislocation. Electronically Signed by Everton Garsia MD 08/25/2018 03:13 P
== END ==
LOC: M ONCR 13:00
PROVIDERS: ATTEND Radiology Radiation Oncology
DX: C90.00 Multiple myeloma not having achieved remission (principal); M85.89 Other specified disorders of bone density and structure, multiple sites; M17.11 Unilateral primary osteoarthritis, right knee; M16.11 Unilateral primary osteoarthritis, right hip
CPT/HCPCS: 36415; 73502; 73552; 80048; G0463

== ENCOUNTER → 2018-09-07 | Outpatient (REF) | payer MEDICARE | LOC: M LAB REF 14:58 | PROVIDERS: ATTEND Nurse Practitioner Family | DX: M85.89 Other specified disorders of bone density and structure, multiple sites (principal) ==

== ENCOUNTER 2018-09-24 13:52 | Outpatient (RCR) | payer MEDICARE ==
--- NOTE | 2018-09-07 14:30 | RADONC ---
RADIATION ONCOLOGY SIMULATION NOTE: DATE: 09/07/2018 CHART NUMBER: [id number] DIAGNOSIS: Multiple myeloma. ECOG performance status: 0-1. The patient was placed in a supine position and an immobilization device was constructed in order to provide accurate daily treatments secondary to immobilization. The patient tolerated the immobilization device fabrication quite well with no significant untoward side effects. I was present during the entire simulation. Thereafter, the patient was placed in the supine position in his immobilization device and 3 mm images were captured upon our CT scanner for contouring of both desired structures to treat as well as normal intrapelvic structures. The patient tolerated the simulation process quite well with no significant untoward side effects. cc: MD Genesis Finch MD
[2018-09-07 14:48] LABS: HEMATOCRIT 32.8 % (42.0-52.0); HEMOGLOBIN 10.4 g/dl (13.5-17.5); LYMPH % 42.4 % (24.0-44.0); MEAN CORPUSCULAR HEMOGLOBIN 33.5 pg (27.0-33.0); MEAN CORPUSCULAR HGB CONC 31.7 g/dl (32.0-36.5); MEAN CORPUSCULAR VOLUME 105.8 fl (80.0-96.0); NEUTROPHILS # 2.4 10^3/uL (1.8-7.7); NEUTROPHILS % 41.5 % (36.0-66.0); RED BLOOD COUNT 3.1 10^6/uL (4.30-6.10); WHITE BLOOD COUNT 5.9 10^3/uL (4.0-10.0)
--- NOTE | 2018-09-22 08:11 | RADONC ---
RADIATION ONCOLOGY PROGRESS NOTE: DATE: 09/21/2018 CHART NUMBER: [id number] Mr. Marc is presently at a dose of 1200 cGy to his left femur and is tolerating treatments quite well at this point with no complaints related to his radiation therapy. He does have some fatigue. REVIEW OF SYSTEMS: The patient's review of systems is positive for some fatigue but is otherwise noncontributory. He denies nausea, vomiting, fevers, chills, night sweats, diplopia, headaches, anxiety or depression, anorexia, weight loss, visual disturbances, chest pain, urinary or bowel difficulties, bone pain, or neurological problems. PHYSICAL EXAMINATION: The patient's skin is in good condition with no evidence of radiation change present. There is no moist or dry desquamation. The remainder of his physical exam remains unchanged. The patient is tolerating treatments quite well and radiation will continue as scheduled.
[~2018-09-24 13:52] MED LIST changes: -OMEP20CA3 PO; +OMEP20CA4 PO
--- NOTE | 2018-09-27 13:08 | RADONC ---
RADIATION ONCOLOGY TREATMENT SUMMARY DATE: 09/24/2018 CHART NUMBER: [id number] DIAGNOSIS: Multiple myeloma. ECOG PERFORMANCE STATUS: 0 TREATMENT SUMMARY: Mr. Marc is a very pleasant 83-year-old white male with the diagnosis of multiple myeloma who presented to us with some left hip pain for consideration of palliative radiation therapy. We treated the patient to his left hip for a total dose of 2100 cGy delivered in 7 fractions of 300 cGy each over eight elapsed days from 09/16/2018 through 09/24/2018. The patient's left hip was treated on a linear accelerator utilizing a 15 MV photon beam via anterior and posterior parallel opposed camejo. Mr. Marc tolerated his treatments quite well with no complaints related to his radiation therapy. The patient is scheduled see me again in 1 month for further follow-up and will continue to be followed by his other physicians as well. cc: MD Genesis Finch MD
[2018-10-16] MEDS ORDERED: REVL10CA2 PO (06:48)
[2018-10-16] MEDS ORDERED: ACYC400T PO (08:56)
[2018-10-19] MEDS ORDERED: ACYC400T PO (09:23)
== END 2018-10-04 ==
LOC: M ONCR 13:52
PROVIDERS: ATTEND Radiology Radiation Oncology
DX: C90.00 Multiple myeloma not having achieved remission (principal)

== ENCOUNTER → 2019-03-11 | Outpatient (REF) | payer MEDICARE ==
[~2019-03-11] MED LIST changes: -ARTI99.0 OP; +ARTIDRO2 OP; +D-101000 PO; +DECA4TAB PO
[2019-03-11 15:18] LABS: CHOLESTEROL RISK RATIO 1.681 (<5)
== END ==
LOC: M LAB REF 14:49
PROVIDERS: ATTEND Family Medicine
DX: I10 Essential (primary) hypertension (principal); E78.5 Hyperlipidemia, unspecified

== ENCOUNTER 2019-05-07 17:31 | Emergency (ER) | payer MEDICARE ==
[~2019-05-07] VITALS: Ht 167.6 cm; Wt 76.7 kg
[~2019-05-07 17:31] MED LIST changes: +OMEP1CAP73 PO; -OMEP20CA4 PO
[2019-05-07] MEDS ORDERED: IPRATROPIUM 0.5MG/ALBUTEROL 2.5MG INH SOL UD 3ML (DUONEB)(J7620) NEB ONE (20:30)
[2019-05-07 20:41] LABS: BASO # 0.1 10^3/uL (0.0-0.2); EOS # 0.3 10^3/uL (0.0-0.5); EOS % 5.5 % (0.0-3.0); HEMATOCRIT 29.3 % (42.0-52.0); HEMOGLOBIN 9.1 g/dl (13.5-17.5); LYMPH # 1.2 10^3/uL (1.5-5.0); LYMPH % 24.3 % (24.0-44.0); MEAN CORPUSCULAR HEMOGLOBIN 28.8 pg (27.0-33.0); MEAN CORPUSCULAR HGB CONC 31.1 g/dl (32.0-36.5); MEAN CORPUSCULAR VOLUME 92.7 fl (80.0-96.0); NEUTROPHILS # 2.4 10^3/uL (1.5-8.5); NEUTROPHILS % 48.4 % (36.0-66.0); PLATELET COUNT, AUTOMATED 233 10^3/uL (150-450); RED BLOOD COUNT 3.16 10^6/uL (4.30-6.10); WHITE BLOOD COUNT 4.9 10^3/uL (4.0-10.0)
[2019-05-07 21:10] LABS: CALCIUM LEVEL 8.1 MG/DL (8.8-10.2); CK-MB VALUE MASS 2.2 NG/ML (<3.6); CREATININE FOR GFR 1.32 MG/DL (0.70-1.30); GLOMERULAR FILTRATION RATE 54.9 (>35); INFLUENZA A AMPLIFICATION NEGATIVE (NEGATIVE); INFLUENZA B AMPLIFICATION NEGATIVE (NEGATIVE); MB/CK RELATIVE INDEX 4.89 (< OR =4); POTASSIUM SERUM 4.5 MEQ/L (3.5-5.1); TROPONIN I 0.04 NG/ML (< 0.10)
[2019-05-07] MEDS ORDERED: dexameTHASONE 4 MG/ML 1ML VIAL (J1100) IV ONE (22:45)
[2019-05-07] MEDS ORDERED: ALBUTEROL 90 MCG/ACT 8GM HFA INHALER INH ONE (22:45)
[2019-05-07] MEDS ORDERED: ISOVUE-370 76% 100ML VIAL (Q9967) As Ordered ONE (23:41)
--- NOTE | 2019-05-08 00:41 | REPVR ---
PROCEDURE INFORMATION: Exam: CT Angiography Chest With Contrast Exam date and time: 05/07/2019 10:42 PM Age: 83 years old Clinical indication: Chest pain; Type not specified; Additional info: SOB TECHNIQUE: Imaging protocol: Computed tomographic angiography of the chest with intravenous contrast. 3D rendering: MIP and/or 3D reconstructed images were created by the technologist. Radiation optimization: All CT scans at this facility use at least one of these dose optimization techniques: automated exposure control; mA and/or kV adjustment per patient size (includes targeted exams where dose is matched to clinical indication); or iterative reconstruction. Contrast material: ISO; Contrast volume: 75 ml; Contrast route: AC; COMPARISON: CT ANGIO CHEST 12/30/2017 3:23 PM FINDINGS: Pulmonary arteries: There is opacification of the pulmonary arteries with no evidence of pulmonary embolus. Aorta: There is opacification of the aorta which appears intact. Lungs: There is a linear area of atelectasis at the left mid lung field. There is a large calcified granuloma right mid lung field. Pleural space: Unremarkable. No pneumothorax. No pleural effusion. Heart: There is moderate cardiomegaly. Stomach and bowel: There is a large hiatal hernia with 3/4 of the stomach above the diaphragm. Lymph nodes: Unremarkable. No enlarged lymph nodes. Bones/joints: There is a severe compression deformity of T6 with a vertebroplasty. There is a moderate compression of T 8 with vertebroplasty. There is a vertebroplasty at T12 with compression of the superior endplate. There are numerous healed rib fractures. Soft tissues: Unremarkable. IMPRESSION: No evidence of pulmonary embolus. Electronically signed by: Arsalan Sky On 05/08/2019 00:42:24 AM
[2019-05-08 01:02] VITALS: BP 126/86
--- NOTE | 2019-05-08 07:57 | REP ---
No chest, 07:53 p.m., single AP view with the patient upright: Comparison is 12/30/2017. Portable chest, 07:53 p.m., single AP view with the patient upright: Comparison is 12/30/2017. There is a chest CT dated 12/30/2017. There is a calcified granuloma the right upper lobe. There is a calcified granuloma just above the right hemidiaphragm. There are multiple vertebroplasties. There is chronic interstitial coarsening compatible with fibrosis. Cardiac size is enlarged. There are old healed left rib fractures. The the patient is rotated. Impression: Chronic interstitial coarsening compatible with fibrosis. Chronic cardiomegaly. Electronically Signed by Russell Doyle MD 05/08/2019 07:47 A
--- NOTE | 2019-05-08 21:34 | ECGEPIP ---
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
== END 2019-05-08 01:08 | disposition home or self-care (01) ==
LOC: M ED 17:31
DX: J44.1 Chronic obstructive pulmonary disease with (acute) exacerbation (principal); C90.00 Multiple myeloma not having achieved remission; I10 Essential (primary) hypertension; E78.49 Other hyperlipidemia; K21.9 Gastro-esophageal reflux disease without esophagitis; Z88.6 Allergy status to analgesic agent; Z88.1 Allergy status to other antibiotic agents; Z88.8 Allergy status to other drugs, medicaments and biological substances
CPT/HCPCS: 36600; 71045; 71275; 80048; 82550; 82553; 82803; 84484; 85025; 87502; 93005; 93041; 94640; 94664; 96374; 99285; J1100; Q9967

== ENCOUNTER 2019-05-13 12:21 | Outpatient (CLI) | payer MEDICARE ==
[~2019-05-13] VITALS: Ht 167.6 cm; Wt 78.0 kg
[2019-05-13] VITALS (8 sets, daily range): BP systolic 137–152; BP diastolic 66–76
[~2019-05-13 12:21] MED LIST changes: +ACETAMINOPHEN TAB 650MG DOSE (2X325MG) PO SCH; -ARTIDRO2 OP; +POLYOPD OP; -TELM1TAB PO; +TELM1TAB35 PO; +VITAD1000T PO; +diphenhydrAMINE 25 MG CAP PO SCH
[2019-05-13] MEDS ORDERED: FUROSEMIDE 20 MG/2 ML VIAL (J1940) IV ONE (12:30)
--- NOTE | 2019-05-14 07:58 | MEDONC ---
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 Currently in clinical remission on maintenance renally dosed RD and denosumab (resumed August 2018 following dental reevaluation). CURRENT THERAPY: - lenalidomide 10 mg daily, days 1 through 21 q. 28 days, begun 10/2017. - dexamethasone 8 mg weekly on Tuesdays - Bactrim DS Friday, Friday, Friday - acyclovir 400 mg b.i.d. - denosumab 120 mg q. 4 weeks, resumed 08/19/2018 after 1 year hiatus, only a handful of treatments prior to that. INTERVAL HISTORY: Jesús was evaluated in the emergency room over the weekend when he developed shortness of breath. CT angio was negative, plain chest x-ray was negative. He was sent home with an inhaler. Of note, however, he has developed progressive anemia, hemoglobin today 9, hematocrit 29. This is a drop of more than 1 unit since December and nearly a whole unit since February. My strong suspicion is his myeloma is reactivated. He has had oligosecretory disease. No overt elevated light chains, quantitative immunoglobulins, signs and symptoms were his original presentation. He declined bone marrow biopsy originally and he has a presumptive diagnosis of IgA multiple myeloma based on elevated IgA at diagnosis. We discussed a 2-unit RBC transfusion, with help of our director Marlen Silver, we are able to make this almost happened in our clinic and get it lined up for later on in the infusion center today dividing the units between today and tomorrow with Lasix after the first unit. I spoke frankly with Jesús and Karlie today about the likely need to switch his therapy. Following his transfusion, we will have Jesús return and at that time discuss the followup plan for next steps. I would like to discuss the case with colleagues prior to deciding on treatment. He did not today say no to infusional treatment, which in the past he had. [place] Karl[place] and at 83 using a walker, frequent trips and traveler not simple. IMPRESSION: Oligosecretory IgA kappa multiple myeloma now with clinical evidence of progression on first-line RD with rising IgA, falling hemoglobin and gradual free kappa increase despite stable kappa lambda ratio, clinically symptomatic with shortness of breath. CT angio negative. No evidence of pneumonia. PLAN: 1. Two units RBC transfusion. 2. Return to clinic early next week. At that time we will discuss next line of therapy, review risks, benefits, so forth. TIME STATEMENT: 20 minutes [id number] with the patient more than 50% involving counseling. Electronically Signed by Genesis Brady MD 05/14/2019 07:38 P DD: Genesis Brady MD 05/13/2019 05:59 P DT: jeanine 05/14/2019 07:42 A CC: Srinivasan Treadwell MD
[2019-05-18] MEDS ORDERED: [UNRECOGNIZED DRUG - CODE] PO (12:06)
[2019-05-18] MEDS ORDERED: POMA4CAP PO (12:06)
== END 2019-05-13 17:15 | disposition home or self-care (01) ==
LOC: M INFU 12:21
PROVIDERS: ATTEND Internal Medicine Medical Oncology
DX: D64.9 Anemia, unspecified (principal); C90.00 Multiple myeloma not having achieved remission; Z88.1 Allergy status to other antibiotic agents; Z88.8 Allergy status to other drugs, medicaments and biological substances; Z79.82 Long term (current) use of aspirin; Z79.899 Other long term (current) drug therapy
CPT/HCPCS: 36415; 36430; 80053; 82784; 83883; 84165; 85027; 86850; 86900; 86901; 86920; 96372; J0897; J1940; P9016

== ENCOUNTER 2019-05-27 06:05 | Day surgery (SDC) | payer MEDICARE ==
[~2019-05-27] VITALS: Ht 170.2 cm; Wt 78.9 kg
[~2019-05-27 06:05] MED LIST changes: -ACETAMINOPHEN TAB 650MG DOSE (2X325MG) PO SCH; +BESI0.6S OP; +BROM0.07 OP; +POMA4CAP PO; +XARE10TA PO; +XGEVINJ SC; +[UNRECOGNIZED DRUG - CODE] PO; -diphenhydrAMINE 25 MG CAP PO SCH
[2019-05-27] MEDS ORDERED: POVIDONE-IODINE 5% OPHTH PREP SOL 30ML As Ordered ONE (06:44)
[2019-05-27] MEDS ORDERED: CEFUROXIME 1MG/0.1ML INTRACAMERAL INJ As Ordered ONE (06:45)
[2019-05-27] MEDS ORDERED: BSS IRR 500ML/OMIDRIA 4ML IRR BAG (OR ONLY) (J1097 PER ML) As Ordered ONE (06:46)
[2019-05-27] MEDS ORDERED: DUOVISC (0.50ML VISCOAT/0.55ML PROVISC) OPHTH KIT As Ordered ONE (06:46)
[2019-05-27] MEDS ORDERED: fentaNYL 100 MCG/2 ML INJECTION (J3010) As Ordered ONE (06:48)
[2019-05-27] MEDS ORDERED: MIDAZOLAM INJ 2 MG/2 ML VIAL (J2250) As Ordered ONE (06:49)
[2019-05-27] MEDS ORDERED: TROPICAMIDE 1% OPHTH SOLN 2ML OD ONE (07:00)
[2019-05-27] MEDS ORDERED: PHENYLEPHRINE 2.5% OPHTH SOL 2ML OD ONE (07:00)
[2019-05-27] MEDS ORDERED: OFLOXACIN 0.3 % (OCUFLOX) OPTH SOL 5ML OD ONE (07:00)
[2019-05-27] MEDS ORDERED: PROPARACAINE 0.5% OPHTH SOL 15ML OD ONE (07:00)
[2019-05-27] MEDS ORDERED: TRYPAN BLUE 0.06 % 2.25 ML OPHTH SYR (VISIONBLUE) As Ordered ONE ×2 (07:48→07:58)
[2019-05-27 08:18] VITALS: BP 144/83
[2019-05-28] MEDS ORDERED: [UNRECOGNIZED DRUG - CODE] PO (13:02)
[2019-05-28] MEDS ORDERED: POMA4CAP PO (13:02)
--- NOTE | 2019-05-28 22:13 | RO ---
DATE OF PROCEDURE: 05/27/2019 PREOPERATIVE DIAGNOSIS: 1. Visually significant nuclear sclerotic cataract right eye. POSTOPERATIVE DIAGNOSIS: 1. Visually significant nuclear sclerotic cataract right eye. PROCEDURE: 1. Cataract extraction with use of phacoemulsification and placement of intraocular lens, AU00T0, 19.5 D, right eye. SURGEON: Murtaza Merlos DO IT SECURITY ADMINISTRATOR: None. ANESTHESIA: Local with monitored anesthesia care (MAC), with Omidria (4 mL/500 mL) mixed into irrigation solution. COMPLICATIONS: None. POSTOPERATIVE CONDITION: Stable. INDICATIONS FOR SURGERY: 1. Blurred vision affecting patients activities of daily living. DESCRIPTION OF PROCEDURE: The patient was seen in the preoperative area and properly identified. The correct operative eye was identified and marked. The patient received topical anesthetic, antibiotics, and topical dilating drops. The patient was then transferred to the operating room. The correct side was re-identified, and a time-out was performed. The eye was prepped and draped in a sterile fashion. The eyelids were isolated with Tegaderm tape, and the lids were held open with an adjustable speculum. A 1.0 mm paracentesis incision was made. Intraocular preservative-free Shugarcaine was then injected into the anterior chamber. Trypan blue was injected to stain the anterior capsule. Viscoelastic was then injected into the anterior chamber through the paracentesis. Using a 2.4 mm sharp-tipped keratome, the anterior chamber was entered via a temporal clear cornea incision. A continuous curvilinear capsulorrhexis was created with Utrata forceps. Hydrodissection was performed with balanced salt solution (BSS) on a blunt cannula until the nucleus was able to rotate freely. The crystalline lens was phacoemulsified and aspirated. Irrigation/aspiration was used to remove the cortical material. Cohesive viscoelastic was placed into the capsular bag to deepen it. The implant was placed into the capsular bag and allowed to unfold. Placement was confirmed by visualizing the anterior capsulorrhexis. Irrigation/aspiration was used to remove the viscoelastic. The clear corneal incision was hydrated with BSS on a blunt cannula. The lens was well positioned. The incisions were then tested for leaks and found to be negative. Cefuroxime was injected into the anterior chamber. The eye was then palpated for appropriate pressure and adjusted accordingly with BSS. The eyelid speculum was then carefully removed. A shield was placed over the eye. The patient tolerated the procedure well and was discharged to the recovery unit in a stable condition. CODY
== END 2019-05-27 08:47 | disposition home or self-care (01) ==
LOC: M SDC 06:05
PROVIDERS: ATTEND Ophthalmology
DX: H25.11 Age-related nuclear cataract, right eye (principal); I10 Essential (primary) hypertension; E78.5 Hyperlipidemia, unspecified; K21.9 Gastro-esophageal reflux disease without esophagitis; D64.9 Anemia, unspecified; N40.0 Benign prostatic hyperplasia without lower urinary tract symptoms; Z85.79 Personal history of other malignant neoplasms of lymphoid, hematopoietic and related tissues; Z92.21 Personal history of antineoplastic chemotherapy; Z92.3 Personal history of irradiation; Z88.4 Allergy status to anesthetic agent; Z88.8 Allergy status to other drugs, medicaments and biological substances; Z88.1 Allergy status to other antibiotic agents; Z79.82 Long term (current) use of aspirin; Z79.899 Other long term (current) drug therapy
CPT/HCPCS: 66984; J1097; J2250; J3010; V2632

== ENCOUNTER → 2019-06-24 | Outpatient (REF) | payer MEDICARE ==
[~2019-06-24] MED LIST changes: +ONDA8TAB10 PO
[2019-06-24 17:25] LABS: BASO # 0.1 10^3/uL (0.0-0.2); BASO % 0.8 % (0.0-1.0); EOS # 0.1 10^3/uL (0.0-0.5); EOS % 1.1 % (0.0-3.0); HEMATOCRIT 34.4 % (42.0-52.0); HEMOGLOBIN 10.9 g/dl (13.5-17.5); LYMPH # 1.7 10^3/uL (1.5-5.0); LYMPH % 26.3 % (24.0-44.0); MEAN CORPUSCULAR HEMOGLOBIN 30.3 pg (27.0-33.0); MEAN CORPUSCULAR HGB CONC 31.7 g/dl (32.0-36.5); MEAN CORPUSCULAR VOLUME 95.6 fl (80.0-96.0); MONO # 1.3 10^3/uL (0.0-0.8); MONO % 19.4 % (0.0-5.0); NEUTROPHILS # 3.3 10^3/uL (1.5-8.5); NEUTROPHILS % 50.9 % (36.0-66.0); PLATELET COUNT, AUTOMATED 150 10^3/uL (150-450); WHITE BLOOD COUNT 6.6 10^3/uL (4.0-10.0)
== END ==
LOC: M LABDRAWC 16:14
PROVIDERS: ATTEND Internal Medicine Medical Oncology
DX: C90.01 Multiple myeloma in remission (principal); D64.9 Anemia, unspecified

== ENCOUNTER → 2019-07-11 | Outpatient (CLI) | payer MEDICARE ==
[~2019-07-11] MED LIST changes: +POMA3CAP PO
== END ==
LOC: M LAB 09:50
PROVIDERS: ATTEND Internal Medicine Medical Oncology
DX: D64.9 Anemia, unspecified (principal)

== ENCOUNTER → 2019-08-09 | Outpatient (REF) | payer MEDICARE ==
[~2019-08-09] MED LIST changes: +POMA2CAP PO
[2019-08-09 12:43] LABS: BASO # 0.1 10^3/uL (0.0-0.2); BASO % 1.4 % (0.0-1.0); EOS # 0.1 10^3/uL (0.0-0.5); EOS % 1.2 % (0.0-3.0); HEMATOCRIT 29.1 % (42.0-52.0); HEMOGLOBIN 9.1 g/dl (13.5-17.5); LYMPH # 1.4 10^3/uL (1.5-5.0); LYMPH % 23.7 % (24.0-44.0); MEAN CORPUSCULAR HEMOGLOBIN 30.1 pg (27.0-33.0); MEAN CORPUSCULAR HGB CONC 31.3 g/dl (32.0-36.5); MEAN CORPUSCULAR VOLUME 96.4 fl (80.0-96.0); MONO # 1.8 10^3/uL (0.0-0.8); MONO % 31.5 % (0.0-5.0); NEUTROPHILS # 2.3 10^3/uL (1.5-8.5); NEUTROPHILS % 40.5 % (36.0-66.0); PLATELET COUNT, AUTOMATED 299 10^3/uL (150-450); RED BLOOD COUNT 3.02 10^6/uL (4.30-6.10); WHITE BLOOD COUNT 5.8 10^3/uL (4.0-10.0)
[2019-08-09 13:05] LABS: ALBUMIN 3.2 GM/DL (3.2-5.2); ALT/SGPT 28 U/L (12-78); BILIRUBIN,TOTAL 0.4 MG/DL (0.2-1.0); BLOOD UREA NITROGEN 22 MG/DL (7-18); CARBON DIOXIDE LEVEL 24 MEQ/L (21-32); CHLORIDE LEVEL 104 MEQ/L (98-107); CREATININE FOR GFR 1.18 MG/DL (0.70-1.30); GLOMERULAR FILTRATION RATE > 60.0 (>35); GLUCOSE, FASTING 95 MG/DL (70-100); POTASSIUM SERUM 4.5 MEQ/L (3.5-5.1); SODIUM LEVEL 136 MEQ/L (136-145); TOTAL PROTEIN 6.3 GM/DL (6.4-8.2)
[2019-08-09 13:53] LABS: IMMUNOGLOBULIN A 51.5 MG/DL (70-400); IMMUNOGLOBULIN G 318 MG/DL (681-1648); IMMUNOGLOBULIN M 17.5 MG/DL (40-230); LDH LACTATE DEHYDROGENASE 296 U/L (87-241); TOTAL PROTEIN 6.3 GM/DL (6.4-8.2)
[2019-08-10 11:15] LABS: ALBUMIN % 56.5 % (55.8-66.1); ALPHA-1-GLOBULIN % 6.9 % (2.9-4.9); ALPHA-2-GLOBULINS % 18.7 % (7.1-11.8); BETA-1-GLOBULINS % 7.6 % (4.7-7.2); BETA-2-GLOBULINS % 4.9 % (3.2-6.5)
[2019-08-10 11:16] LABS: ALBUMIN 3.56 GM/DL (3.29-5.55); ALPHA-1-GLOBULINS 0.43 GM/DL (0.17-0.41); ALPHA-2-GLOBULINS 1.18 GM/DL (0.42-0.99); BETA-1-GLOBULINS 0.48 GM/DL (0.28-0.60); BETA-2-GLOBULINS 0.31 GM/DL (0.19-0.55); GAMMA GLOBULIN % 5.4 % (11.1-18.8); GAMMA GLOBULINS 0.34 GM/DL (0.65-1.58)
[2019-08-11 00:10] LABS: FREE KAPPA LIGHT CHAINS SERUM 9.3 mg/L (3.3-19.4); FREE LAMBDA LIGHT CHAINS SERUM 6.5 mg/L (5.7-26.3); KAPPA/LAMBDA RATIO SERUM 1.43 (0.26-1.65)
== END ==
LOC: M LABDRAWC 11:42
PROVIDERS: ATTEND Internal Medicine Medical Oncology
DX: Z01.89 Encounter for other specified special examinations (principal)

== ENCOUNTER → 2019-08-15 | Outpatient (CLI) | payer MEDICARE | LOC: M LAB 09:49 | PROVIDERS: ATTEND Internal Medicine Medical Oncology | DX: C90.00 Multiple myeloma not having achieved remission (principal) ==

== ENCOUNTER → 2019-08-17 | Outpatient (CLI) | payer MEDICARE ==
[~2019-08-17] MED LIST changes: +AMOX875T2 PO; -ASPI81TA85 PO; +ASPI81TA86 PO; +AUGM875T28 PO; +CEFD1CAP8 PO; +CLOP75TA2 PO; +D31000TA2 PO; +FLUC100T PO; +FURO20TA2 PO; +IXAZ4CAP PO; +LASI40TA9 PO; +MONT10TA10 PO; +MULT-4 PO; +PANT40TA29 PO; -PANT40TA3 PO; +PRED10TA2 PO; +PRED20TA PO; +SULF1TAB93 PO; -VITAD1000T PO; -[UNRECOGNIZED DRUG - CODE] PO
--- NOTE | 2019-08-18 12:27 | REP ---
REASON: History of asthma. COMPARISON: 05/07/2019, a portable exam. There is cardiomegaly status quo. There is a large hiatal hernia status quo. There are chronic interstitial changes and chronic calcified granuloma status quo. No acute patchy parenchymal opacities or pleural effusions have developed. There is no significant change in the appearance of the osseous structures. IMPRESSION: Stable appearing chronic changes as described above. Electronically Signed by Anmol Reynolds DO 08/18/2019 01:12 P
== END ==
LOC: M RAD 14:01
PROVIDERS: ATTEND Internal Medicine Medical Oncology
DX: I51.7 Cardiomegaly (principal); K44.9 Diaphragmatic hernia without obstruction or gangrene; R06.02 Shortness of breath

== ENCOUNTER → 2019-09-13 | Outpatient (CLI) | payer MEDICARE ==
[~2019-09-13] MED LIST changes: -AMOX875T2 PO; +ASPI81TA85 PO; -ASPI81TA86 PO; -AUGM875T28 PO; -CEFD1CAP8 PO; -CLOP75TA2 PO; -D31000TA2 PO; -FLUC100T PO; -FURO20TA2 PO; -IXAZ4CAP PO; -LASI40TA9 PO; -MONT10TA10 PO; -MULT-4 PO; -PANT40TA29 PO; +PANT40TA3 PO; -PRED10TA2 PO; -PRED20TA PO; +SULF1TAB93; -SULF1TAB93 PO; +VITAD1000T PO; +[UNRECOGNIZED DRUG - CODE] PO
== END ==
LOC: M LABSMTC 11:52
PROVIDERS: ATTEND Anesthesiology
DX: Z03.818 Encounter for observation for suspected exposure to other biological agents ruled out (principal); Z11.59 Encounter for screening for other viral diseases
CPT/HCPCS: C9803; U0003

== ENCOUNTER 2019-09-16 11:05 | Day surgery (SDC) | payer MEDICARE ==
[~2019-09-16] VITALS: Ht 170.2 cm; Wt 77.6 kg
[~2019-09-16 11:05] MED LIST changes: +CEFUROXIME 1MG/0.1ML INTRACAMERAL INJ As Ordered ONE; +DUOVISC (0.50ML VISCOAT/0.55ML PROVISC) OPHTH KIT As Ordered ONE; +MIDAZOLAM INJ 2MG/2ML VIAL (J2250 PER 1MG) As Ordered ONE; +OFLOXACIN 0.3 % (OCUFLOX) OPTH SOL 5ML OS ONE; +PHENYLEPHRINE 2.5% OPHTH SOL 2ML OS ONE; +POVIDONE-IODINE 5% OPHTH PREP SOL 30ML As Ordered ONE; +PROPARACAINE 0.5% OPHTH SOL 15ML OS ONE; -SULF1TAB93; +TROPICAMIDE 1% OPHTH SOLN 2ML OS ONE; +fentaNYL 100 MCG/2 ML INJECTION (J3010) As Ordered ONE
[2019-09-16] MEDS ORDERED: BSS IRR 500ML/OMIDRIA 4ML IRR BAG (OR ONLY) (J1097 PER ML) As Ordered ONE (11:59)
[2019-09-16 14:15] VITALS: BP 141/68
--- NOTE | 2019-09-21 14:17 | RO ---
DATE OF PROCEDURE: 09/16/2019 PREOPERATIVE DIAGNOSIS: 1. Visually significant nuclear sclerotic cataract left eye. POSTOPERATIVE DIAGNOSIS: 1. Visually significant nuclear sclerotic cataract left eye. PROCEDURE: 1. Cataract extraction with use of phacoemulsification and placement of intraocular lens, AU00T0 19.5 D, left eye. SURGEON: Murtaza Merlos DO FRUIT TESTER: None. ANESTHESIA: Local with monitored anesthesia care (MAC), with Omidria (4 mL/500 mL) mixed into irrigation solution. COMPLICATIONS: None. POSTOPERATIVE CONDITION: Stable. INDICATIONS FOR SURGERY: 1. Blurred vision affecting patients activities of daily living. DESCRIPTION OF PROCEDURE: The patient was seen in the preoperative area and properly identified. The correct operative eye was identified and marked. The patient received topical anesthetic, antibiotics, and topical dilating drops. The patient was then transferred to the operating room. The correct side was re-identified, and a time-out was performed. The eye was prepped and draped in a sterile fashion. The eyelids were isolated with Tegaderm tape, and the lids were held open with an adjustable speculum. A 1.0 mm paracentesis incision was made. Intraocular preservative-free Shugarcaine was then injected into the anterior chamber. Viscoelastic was then injected into the anterior chamber through the paracentesis. Using a 2.4 mm sharp-tipped keratome, the anterior chamber was entered via a temporal clear cornea incision. A continuous curvilinear capsulorrhexis was created with Utrata forceps. Hydrodissection was performed with balanced salt solution (BSS) on a blunt cannula until the nucleus was able to rotate freely. The crystalline lens was phacoemulsified and aspirated. Irrigation/aspiration was used to remove the cortical material. Cohesive viscoelastic was placed into the capsular bag to deepen it. The implant was placed into the capsular bag and allowed to unfold. Placement was confirmed by visualizing the anterior capsulorrhexis. Irrigation/aspiration was used to remove the viscoelastic. The clear corneal incision was hydrated with BSS on a blunt cannula. The lens was well positioned. The incisions were then tested for leaks and found to be negative. Cefuroxime was injected into the anterior chamber. The eye was then palpated for appropriate pressure and adjusted accordingly with BSS. The eyelid speculum was then carefully removed. A shield was placed over the eye. The patient tolerated the procedure well and was discharged to the recovery unit in a stable condition. CODY
[2019-09-22] MEDS ORDERED: CEFD1CAP8 PO (09:31)
[2019-09-22] MEDS ORDERED: FURO20TA2 PO (09:31)
== END 2019-09-16 14:30 | disposition home or self-care (01) ==
LOC: M SDC 11:05
PROVIDERS: ATTEND Ophthalmology
DX: H25.12 Age-related nuclear cataract, left eye (principal); I10 Essential (primary) hypertension; E78.5 Hyperlipidemia, unspecified; D64.9 Anemia, unspecified; C90.00 Multiple myeloma not having achieved remission; Z92.21 Personal history of antineoplastic chemotherapy; Z92.3 Personal history of irradiation; Z79.01 Long term (current) use of anticoagulants; Z79.899 Other long term (current) drug therapy; Z88.1 Allergy status to other antibiotic agents; Z88.8 Allergy status to other drugs, medicaments and biological substances
CPT/HCPCS: 66984; J1097; J2250; J3010; V2632

== ENCOUNTER 2019-09-20 10:10 | Emergency (ER) | payer MEDICARE ==
[~2019-09-20] VITALS: Ht 170.2 cm; Wt 77.3 kg
[~2019-09-20 10:10] MED LIST changes: -CEFUROXIME 1MG/0.1ML INTRACAMERAL INJ As Ordered ONE; -DUOVISC (0.50ML VISCOAT/0.55ML PROVISC) OPHTH KIT As Ordered ONE; -MIDAZOLAM INJ 2MG/2ML VIAL (J2250 PER 1MG) As Ordered ONE; -OFLOXACIN 0.3 % (OCUFLOX) OPTH SOL 5ML OS ONE; -PHENYLEPHRINE 2.5% OPHTH SOL 2ML OS ONE; -POVIDONE-IODINE 5% OPHTH PREP SOL 30ML As Ordered ONE; -PROPARACAINE 0.5% OPHTH SOL 15ML OS ONE; -TROPICAMIDE 1% OPHTH SOLN 2ML OS ONE; -fentaNYL 100 MCG/2 ML INJECTION (J3010) As Ordered ONE
[2019-09-20] MEDS ORDERED: SULF1TAB93 (11:12)
[2019-09-20 11:19] LABS: HEMOGLOBIN 8.8 g/dl (13.5-17.5); MEAN CORPUSCULAR HEMOGLOBIN 29.6 pg (27.0-33.0); MEAN CORPUSCULAR HGB CONC 31.4 g/dl (32.0-36.5); MEAN CORPUSCULAR VOLUME 94.3 fl (80.0-96.0); PLATELET COUNT, AUTOMATED 177 10^3/uL (150-450); RED BLOOD COUNT 2.97 10^6/uL (4.30-6.10); WHITE BLOOD COUNT 6.8 10^3/uL (4.0-10.0)
[2019-09-20 11:34] LABS: INR 2.06
[2019-09-20 11:41] LABS: ATYPICAL LYMPH 4 % (0-5); EOSINOPHILS 2 % (0-3); LYMPHOCYTES 19 % (16-44); METAMYELOCYTES 1 % (0-0); MONOCYTES 3 % (0-5); MYELOCYTES 1 % (0-0); NEUTROPHILS 69 % (28-66)
[2019-09-20 11:42] LABS: ANISOCYTOSIS 1+; OVALOCYTES 1+; PLATELET ESTIMATE NORMAL (NORMAL); POIKILOCYTOSIS 1+
[2019-09-20 11:46] LABS: ALBUMIN 3.2 GM/DL (3.2-5.2); BILIRUBIN,DIRECT 0.1 MG/DL (0.0-0.2); BILIRUBIN,TOTAL 0.2 MG/DL (0.2-1.0); CALCIUM LEVEL 8.6 MG/DL (8.8-10.2); CK-MB VALUE MASS 2.4 NG/ML (<3.6); CREATININE FOR GFR 1.28 MG/DL (0.70-1.30); GLOMERULAR FILTRATION RATE 56.7 (>35); MB/CK RELATIVE INDEX 5.22 (< OR =4); POTASSIUM SERUM 4.2 MEQ/L (3.5-5.1); THYROID STIMULATING HORMONE 2.57 uIU/ML (0.358-3.740); TOTAL PROTEIN 5.9 GM/DL (6.4-8.2); TROPONIN I 0.03 NG/ML (< 0.10)
--- NOTE | 2019-09-20 12:15 | REP ---
PORTABLE CHEST X-RAY: Single view. HISTORY: Dyspnea and cough. COMPARISON CHEST X-RAY: August 17, 2019. FINDINGS: Mild cardiomegaly is observed. Mitral annular calcification is seen. The patient is status post vertebroplasty at multiple levels. There are granulomatous calcifications projecting on the right and left. No acute infiltrate is seen. No evidence of pleural effusion or pulmonary edema. IMPRESSION: Mild cardiomegaly. Hiatal hernia noted. Otherwise no acute disease. Status post vertebroplasty. Electronically Signed by Miguel Esteban MD 09/20/2019 02:58 P
[2019-09-20] MEDS ORDERED: ISOVUE-370 76% 100ML VIAL As Ordered ONE (12:28)
[2019-09-20 14:55] VITALS: BP 145/86
--- NOTE | 2019-09-20 15:04 | REP ---
CT PULMONARY ANGIOGRAM: With IV contrast. HISTORY: Severe shortness of breath. Rule out pulmonary embolus. COMPARISON STUDIES: Comparison CT pulmonary angiogram and May 07, 2019. CONTRAST DOSE: 75 mL of Isovue [address] TECHNIQUE: Helical scanning is acquired and overlapping 1.5 mm and contiguous 3 mm axial images are reformatted. In addition, maximum intensity projection and multiplanar re-formation images are generated in sagittal and coronal imaging projections. CT PULMONARY ANGIOGRAPHIC FINDINGS: There is good opacification of the pulmonary arterial tree. There is no evidence of vessel cutoff or filling defect to suggest pulmonary embolism. No evidence of aortic aneurysm or dissection is seen. The great vessels are tortuous as is the thoracic aorta. Vascular calcification is noted. There is a large hiatal hernia. There are granulomatous calcifications in the spleen and liver. No pleural or pericardial effusion is appreciated. There are areas of plate-like atelectasis in the lingula segment of the left upper lobe and in the right lower lobe. There are granulomatous calcifications in the right upper lobe. Multiple healing or healed rib fractures are noted bilaterally. The patient is status post multilevel thoracic and lumbar vertebral plasty. Moderate cardiac enlargement is observed. There is a small cyst in the upper pole right kidney. IMPRESSION: No CT evidence of pulmonary embolus. Moderate cardiomegaly is observed. There are areas of discoid atelectasis or fibrosis in the right lower lobe and lingula segment left upper lobe. The patient status post vertebroplasty at multiple levels. Numerous healed or healing rib fractures bilaterally. Electronically Signed by Miguel Esteban MD 09/20/2019 06:14 P
--- NOTE | 2019-09-20 21:35 | ECGEPIP ---
[facility] - ED Test Date: 2019-09-20 Pat Name: ADRIAN PRASAD Department: Room: - Gender: Male [facility]cover [facility] 1935 Requested By: JORDAN Maldonado Order Number: [id number] Reading MD: Chirag Hensley Measurements Intervals [place] Rate: 74 P: 0 [place]: 213 QRS: -8 QRSD: 148 T: -23 QT: 400 QTc: 445 Interpretive Statements SINUS RHYTHM WITH FIRST DEGREE AV BLOCK RIGHT BUNDLE BRANCH BLOCK SIMILAR TO 05/07/19 Electronically Signed on 09-20-2019 21:34:32 EDT by Chirag Hensley
[2019-09-22] MEDS ORDERED: CEFD1CAP8 PO (09:31)
[2019-09-22] MEDS ORDERED: FURO20TA2 PO (09:31)
[2019-09-23] MEDS ORDERED: MONT10TA4 PO (13:33)
[2019-10-01] MEDS ORDERED: MONT10TA4 PO (14:46)
== END 2019-09-20 15:45 | disposition left against medical advice (07) ==
LOC: M ED 10:10
DX: R79.0 Abnormal level of blood mineral (principal); I11.9 Hypertensive heart disease without heart failure; I44.0 Atrioventricular block, first degree; C90.00 Multiple myeloma not having achieved remission; R91.8 Other nonspecific abnormal finding of lung field; K44.9 Diaphragmatic hernia without obstruction or gangrene; K21.9 Gastro-esophageal reflux disease without esophagitis; E78.5 Hyperlipidemia, unspecified; Z53.29 Procedure and treatment not carried out because of patient's decision for other reasons; Z79.899 Other long term (current) drug therapy; Z88.1 Allergy status to other antibiotic agents; Z88.8 Allergy status to other drugs, medicaments and biological substances; Z98.890 Other specified postprocedural states
CPT/HCPCS: 71045; 71275; 80048; 80076; 82550; 82553; 83880; 84443; 84484; 85025; 85610; 87486; 87581; 87633; 87798; 93005; 93041; 94760; 99285; Q9967

== ENCOUNTER 2019-09-22 10:49 | Outpatient (CLI) | payer MEDICARE ==
[~2019-09-22] VITALS: Ht 170.2 cm; Wt 80.9 kg
[2019-09-22] VITALS (7 sets, daily range): BP systolic 120–156; BP diastolic 64–74
[~2019-09-22 10:49] MED LIST changes: +ACETAMINOPHEN TAB 650MG DOSE (2X325MG) PO SCH; -ASPI81TA85 PO; +ASPI81TA86 PO; +CEFD1CAP8 PO; +D31000TA2 PO; +FURO20TA2 PO; +IXAZ4CAP PO; +PANT40TA29 PO; -PANT40TA3 PO; +SULF1TAB93 PO; -VITAD1000T PO; -[UNRECOGNIZED DRUG - CODE] PO; +diphenhydrAMINE 25MG CAP PO SCH
[2019-09-23] MEDS ORDERED: MONT10TA10 PO (13:33)
--- NOTE | 2019-09-24 22:06 | MEDONC ---
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 Evidence of disease progression, now with transfusion need, new anemia, mildly rising free kappa and IgA. TREATMENT HISTORY: Lenalidomide 10 mg/dexamethasone 8 mg 10/2017 - 04/2018. Stopped for disease progression heralded by new transfusion requirement. Left hip palliative radiation September 2018. CURRENT THERAPY: Ixazomib 4 mg, days 1, 8, 15/pomalidomide 2 mg days 1-21/dexamethasone 8 mg weekly. This combination begun 06/2019. 28-day cycle. Dose reduced pomalidomide due to anemia. Bactrim DS Friday, Friday, Friday. Acyclovir 400 mg b.i.d. Denosumab 120 mg q. 4 weeks resumed 08/2018. Rivaroxaban 10 mg daily. As needed RBC transfusion. COMORBIDITIES: Osteoarthritis. Peripheral neuropathy involving feet. Moderate to severe aortic stenosis on echocardiogram July 2019, followed by John Casey MD INTERVAL HISTORY: Rojelio is here because he his partner, Karlie, called saying he could not move or breathe. He went to the emergency room yesterday but did not want to wait for a treatment plan. Chest CT was negative for PE. Labs showed some progressive anemia with hemoglobin 8.8. This was actually 2 days ago on 09/20/2019. Rojelio has required transfusions for anemia in the last several months after a 2-year hiatus from transfusion need. He presented with refractory anemia. He has hyposecretory myeloma, presented with a normal IgA and mildly elevated free kappa as his disease signifiers. He never received bone marrow biopsy as he had been troubled by back pain and was quite unwilling to undergo bone marrow biopsy on initial evaluation but responded well to initial treatment with lenalidomide/dexamethasone. More recently, he has required change of therapy to ixazomib/pomalidomide/dex due to this new transfusion requirement and mildly rising free kappa, but clearly poorly responding to this. However, free kappa did decrease and IgA is not increasing. But, most likely, his increasing transfusion need currently relates to underlying progressive multiple myeloma in conjunction with his moderate to severe aortic stenosis, and he is quite brittle, requiring transfusion for symptoms with hemoglobin below 10. Today I discussed with Karlie and Rojelio, as he is called, switching therapy. I recommended daratumumab/bortezomib/dexamethasone. We have avoided bortezomib to date because at the outset Rojelio complained of severe peripheral neuropathy. He has a history of polio as a young man. At this point, however, Rojelio's mobility is limited by walker, his disease appears to be progressing significantly, and at least a trial of daratumumab with bortezomib may be a way to jump start treatment of his myeloma. The bortezomib can be dropped with good response, and he could potentially be maintained on daratumumab. The other reason this combination was not previously considered is Jesús lives distantly, driving in the winter is challenging and so forth. Today he and Karlie expressed willingness for him to at least start the daratumumab/bortezomib despite the need for frequent travel back and forth. An important issue may become IV access. To date he has not had a MediPort. We could consider MediPort placement, but I would prefer not to delay start of treatment for this. I discussed the risks, benefits, side effects, alternatives of daratumumab and dexamethasone and bortezomib with Jesús and Karlie, including, but not limited to, fatigue, headache, nausea, diarrhea, constipation, anorexia, cytopenias, arthralgias. infusion reaction, neuropathy, dizziness, rash, fever, hypotension. I also obtained written informed consent for RBC transfusion, as well as for the bortezomib, daratumumab, and dexamehtasone. IMPRESSION: 84-year-old man with moderate to severe aortic stenosis and hyposecretory IgA kappa multiple myeloma now with progressive transfusion need, highly symptomatic with hemoglobin less than 10, on second-line myeloma treatment with pomalidomide/ixazomib/dexamethasone. PLAN: 1. Two unit RBC transfusion (not writing for diuresis post transfusion due to the patient's severe ). 2. Return to clinic to begin daratumumab/bortezomib. I instructed Karlie to discuss with the nurses when the start date would be. Rojelio should otherwise continue on his current treatment anticipating potential delays in start of daratumumab due to shortfall of staff and difficulties with scheduling. 3. I will order for MediPort placement, but because of Rojelio's cardiac condition and the potential delays introduced by preoperative testing, we should start his daratumumab treatment by peripheral vein if possible. TIME STATEMENT: 30 minutes [id number] with the patient, more than to 50% involved in counseling, obtaining written informed consent for chemotherapy, for RBC transfusion, writing RBC transfusion orders, explaining to the patient the change of therapy, answering the patient's questions to his apparent satisfaction. Electronically Signed by Genesis Brady MD 09/28/2019 05:22 P DD: Genesis Brady MD 09/22/2019 02:06 P DT: sabi 09/24/2019 09:39 P CC: MD Srinivasan Botello MD
[2019-10-01] MEDS ORDERED: MONT10TA10 PO (14:46)
[2019-12-17] MEDS ORDERED: AUGM875T28 PO (14:48)
== END 2019-09-22 16:30 | disposition home or self-care (01) ==
LOC: M INFU 10:49
PROVIDERS: ATTEND Internal Medicine Medical Oncology
DX: D64.9 Anemia, unspecified (principal)
CPT/HCPCS: 36415; 36430; 80053; 82784; 83883; 84165; 85025; 86850; 86900; 86901; 86920; G0463; P9016

== ENCOUNTER → 2019-10-01 | Outpatient (CLI) | payer MEDICARE ==
[~2019-10-01] MED LIST changes: -ACETAMINOPHEN TAB 650MG DOSE (2X325MG) PO SCH; +ASPI81TA85 PO; -ASPI81TA86 PO; -D31000TA2 PO; -IXAZ4CAP PO; +MIDAZOLAM INJ 2MG/2ML VIAL (J2250 PER 1MG) As Ordered ONE; +MONT10TA4 PO; -PANT40TA29 PO; +PANT40TA3 PO; +VITAD1000T PO; +[UNRECOGNIZED DRUG - CODE] PO; -diphenhydrAMINE 25MG CAP PO SCH; +diphenhydrAMINE 50MG/ML VIAL (J1200) As Ordered ONE; +fentaNYL 100 MCG/2 ML INJECTION (J3010) As Ordered ONE
--- NOTE | 2019-10-01 11:16 | IRHP ---
[facility] IR Pre-Procedure H & P General Date of Service: Oct 01, 2019 Procedure: Same Day Surgery Interval History and Physical I have seen the patient and reviewed last H & P performed within 30 days. There is no significant interval change. History of Present Illness Chief Complaint The patient is a 84-year-old male admitted with a reason for visit of Multiple Myeloma. PRE-PROCEDURE DIAGNOSIS: multiple myeloma HEART: normal rate. LUNGS: normal breathing at rest. ASA Classification ASA Classification: III-Severe systemic dis. Mallampati Score: II NPO: Yes Problems with prior sedation: No Obstructive Sleep Apnea: No Plan moderate sedation Allergies Coded Allergies: lidocaine (Verified Allergy, Mild, SWEATY, FAINTING, 08/31/19) mepivacaine (Verified Allergy, Unknown, SWEATING, FAINTING, 08/31/19) tamsulosin (Verified Adverse Reaction, Intermediate, CONFUSION, 08/31/19) prednisone (Verified Adverse Reaction, Mild, CONFUSION, 08/31/19) donepezil (Verified Adverse Reaction, Unknown, HALLUCINATION, 08/31/19) erythromycin base (Verified Adverse Reaction, Unknown, HALLUCINATION, 08/31/19) simvastatin (Verified Adverse Reaction, Unknown, CONFUSION, 08/31/19) Home Medications Scheduled Acyclovir (Acyclovir), 400 MG PO BID Calcium Carbonate/Vitamin D3 (Calcium 500-Vit D3 600 Tablet), 1 TAB PO BID, (Reported) Cefdinir (Cefdinir), 300 MG PO BID, (Reported) Cholecalciferol (Vitamin D3) (Vitamin D3), 1,000 UNITS PO DAILY, (Reported) Cyanocobalamin (Vitamin B-12) (Vitamin B-12), 1,000 MCG PO DAILY, (Reported) Dexamethasone (Dexamethasone), 8 MG PO 1XWK Furosemide (Furosemide), 1 TAB PO DAILY, (Reported) Montelukast Sodium (Montelukast Sodium), 10 MG PO DAILY Pantoprazole Sodium (Pantoprazole Sodium), 40 MG PO DAILY, (Reported) Polyethylene Glycol 3350 (Miralax), 17 GRAM PO DAILY, (Reported) Rivaroxaban (Xarelto), 10 MG PO DAILY Rosuvastatin Calcium (Crestor), 20 MG PO QHS, (Reported) Telmisartan (Telmisartan), 20 MG PO DAILY, (Reported) Scheduled PRN Ondansetron HCl (Ondansetron HCl), 8 MG PO Q6H PRN for NAUSEA OR VOMITING Miscellaneous Medications Sulfamethoxazole/Trimethoprim (Sulfamethoxazole-Tmp Ds Tablet), (Reported) Discontinued Medications Ixazomib Citrate (Ninlaro), 1 CAP PO Q7D Discontinued Reason: PCP discontinued med Pomalidomide (Pomalyst), 1 CAP PO DAILY Discontinued Reason: PCP discontinued med VS, I&O, 24H, Fishbone Vital Signs/I&O Vital Signs Date Time Temp Pulse Resp B/P (MAP) Pulse Ox O2 Delivery O2 Flow Rate FiO2 10/01/19 11:04 74 18 96 Room Air 10/01/19 10:35 2 10/01/19 09:49 97 DARRYL DOMINGUEZ MD Oct 01, 2019 11:16
--- NOTE | 2019-10-01 11:17 | POST-OPPD ---
Postoperative Procedure Note Date Of Procedure: Oct 01, 2019 Time Of Procedure: 11:16 PREOPERATIVE DIAGNOSIS: multiple myeloma POSTOPERATIVE DIAGNOSIS: same FINDINGS: patent right IJ PROCEDURE: right sided port placed SURGEON: Keny ANESTHESIA: mod sed ESTIMATED BLOOD LOSS: < 5 ml COMPLICATIONS: none POSTOPERATIVE CONDITION: stable DARRYL DOMINGUEZ MD Oct 01, 2019 11:17
[2019-10-01 13:10] VITALS: BP 148/77
--- NOTE | 2019-10-04 13:18 | REP ---
IR Ultrasound and fluoroscopy-guided port placement. IR Ultrasound of the neck. IR Moderate sedation. Clinical information: Multiple myeloma. Physician: Dr. Bustillo. Procedure: The patient was advised of the benefits, risks, and alternatives of the procedure and informed consent was obtained. A time-out was performed with verification of the patient's name, MRN, site of procedure and type of procedure to be performed. The patient was positioned in the supine position on the angiographic table. The site was prepped and draped in the usual sterile fashion. Moderate sedation was performed by the physician including the presence of an independent trained observer who assisted and monitored the patient's level of consciousness and physiologic status. Following the administration of fentanyl and Versed, the physician spent 30 minutes of continuous face to face time with the patient. Ultrasound of the neck reveals a patent and compressible right internal jugular vein. A screen printing machine operator helper radiograph reveals prior vertebral augmentation. The neck and anterior chest wall were anesthetized with lidocaine. The right internal jugular vein was accessed using a microintroducer needle under ultrasound guidance, via a lateral approach. An 018 wire was advanced into the superior vena cava, the needle was removed and a microsheath was placed. An Amplatz wire was then passed into the inferior vena cava. An incision at the internal jugular vein access site and anterior chest wall were made using a scalpel. An incision was made at the anterior chest wall. A small pocket was created using a combination of blunt and sharp dissection. A tunneling device was then used to pass the catheter from the pocket to the neck puncture site. An 8-Emirati Angio dynamics Smart power port was then positioned in the pocket. The catheter was then measured and cut. The introducer sheath was exchanged for a peel-away sheath. The catheter was passed through the peel-away sheath into the internal jugular vein and the peel-away sheath was removed. The port tip was positioned at the cavoatrial junction. The port was then accessed with a Sosa needle. The port flushes and aspirates well. The puncture site in the neck was closed. The chest wall incision was then closed with 2-0 Vicryl and 4-0 Monocryl. Glue and Steri-Strips were applied. A sterile dressing was then applied. The patient tolerated the procedure well and was returned to the PRU in stable condition. Estimated blood loss: <5 ml. Complications: None. Conclusion: 1. Successful placement of an 8-Emirati Angio dynamics Smart power port via the right internal jugular vein. The port is ready for immediate use. 2. Patient to follow up in IR clinic in 2 weeks. Thank you for this referral. Electronically Signed by Sujatha Bustillo MD 10/04/2019 01:16 P
== END ==
LOC: M IRPRO 08:29
PROVIDERS: ATTEND Radiology Diagnostic Radiology
DX: C90.00 Multiple myeloma not having achieved remission (principal)
CPT/HCPCS: 36561; 99152; 99153; C1769; C1788; C1894; J0690; J1200; J1642; J1644; J2250; J3010

== ENCOUNTER 2019-10-14 12:11 | Inpatient (IN) | payer MEDICARE ==
[~2019-10-14] VITALS: Ht 170.2 cm; Wt 81.3 kg
[~2019-10-14 12:11] MED LIST changes: -MIDAZOLAM INJ 2MG/2ML VIAL (J2250 PER 1MG) As Ordered ONE; -diphenhydrAMINE 50MG/ML VIAL (J1200) As Ordered ONE; -fentaNYL 100 MCG/2 ML INJECTION (J3010) As Ordered ONE
[2019-10-14 14:14] LABS: ALBUMIN 3.3 GM/DL (3.2-5.2); ALT/SGPT 31 U/L (12-78); BILIRUBIN,DIRECT < 0.1 MG/DL (0.0-0.2); BILIRUBIN,TOTAL 0.2 MG/DL (0.2-1.0); NT-PRO BNP 1033 PG/ML (<450); THYROXINE (T4) 8.2 UG/DL (4.5-12.0)
--- NOTE | 2019-10-14 15:52 | REP ---
REASON FOR EXAM: Dyspnea and cough. COMPARISON: Multiple, the latest 09/20/2019. Since the last examination a Mediport device has been placed, the tip of which is in the superior vena cava. Once again, there is cardiomegaly accentuated by technique. Once again, there is evidence of an interstitial fibrotic change accentuated by technique. No acute patchy parenchymal opacities or pleural effusions have developed. The osseous structures are unchanged. IMPRESSION: Mediport catheter as described above. Chronic changes as described above. There is no evidence of a acute cardiopulmonary disease. Electronically Signed by Anmol Reynolds DO 10/14/2019 04:59 P
[2019-10-14] MEDS ORDERED: ONDANSETRON 4 MG TAB PO PRN (18:45)
[2019-10-14] MEDS ORDERED: CYANOCOBALAMIN 500 MCG TAB PO SCH (21:00)
[2019-10-14] MEDS ORDERED: ROSUVASTATIN 10 MG TAB (CRESTOR) PO SCH (21:00)
[2019-10-14] MEDS ORDERED: TELMISARTAN 20 MG TAB PO SCH (21:00)
[2019-10-14 21:06] VITALS: BP 144/66
[2019-10-14] MEDS: ACYCLOVIR 200 MG CAPSULE PO SCH (22:33)
[2019-10-14] MEDS: ENOXAPARIN 80MG/0.8ML SYRINGE (J1650 PER 10MG) SC SCH (22:35)
[2019-10-15] VITALS: BP 124/71
--- NOTE | 2019-10-15 00:24 | REP ---
CT CHEST WITHOUT IV CONTRAST: CT chest performed without IV contrast and compared to prior studies, most recently 09/20/2019. Scattered calcified granulomas are seen in the lungs with scattered linear fibrotic change. There is no acute infiltrate. There is a right central venous catheter with the tip in the superior vena cava. No axillary or mediastinal adenopathy is seen. Scattered calcified lymph nodes are seen in the mediastinum and right hilum. There is atherosclerotic calcification of the thoracic aorta without aneurysm. The heart is mildly enlarged. There is a tiny amount of pericardial fluid/thickening. There is no pleural effusion. There is a large hiatal hernia. Calcified granulomas are seen in the liver and spleen. Old bilateral rib fractures are noted. There is evidence of prior kyphoplasty of thoracic vertebral bodies with diffuse degenerative changes. IMPRESSION: Stable chronic changes, as discussed in detail above. No acute pulmonary disease. Electronically Signed by Russell Austin MD 10/17/2019 10:42 P
[2019-10-15 01:02] LABS: CK-MB VALUE MASS 1.3 NG/ML (<3.6); CPK CREATINE PHOSPHOKINASE 36 U/L (39-308); MB/CK RELATIVE INDEX 3.61 (< OR =4); TROPONIN I < 0.02 NG/ML (< 0.10)
[2019-10-15 04:00] VITALS: BP 143/68
[2019-10-15 05:57] LABS: EOS % 0.5 % (0.0-3.0); HEMATOCRIT 27.1 % (42.0-52.0); HEMOGLOBIN 8.9 g/dl (13.5-17.5); LYMPH # 0.6 10^3/uL (1.5-5.0); MEAN CORPUSCULAR HEMOGLOBIN 29.6 pg (27.0-33.0); MEAN CORPUSCULAR HGB CONC 32.8 g/dl (32.0-36.5); MONO # 0.9 10^3/uL (0.0-0.8); MONO % 22.3 % (0.0-5.0); NEUTROPHILS # 2.6 10^3/uL (1.5-8.5); NEUTROPHILS % 60.4 % (36.0-66.0); RED BLOOD COUNT 3.01 10^6/uL (4.30-6.10); WHITE BLOOD COUNT 4.2 10^3/uL (4.0-10.0)
[2019-10-15 06:01] LABS: PLATELET COUNT, AUTOMATED 67 10^3/uL (150-450)
[2019-10-15 06:34] LABS: BLOOD UREA NITROGEN 32 MG/DL (7-18); CALCIUM LEVEL 8.8 MG/DL (8.8-10.2); CARBON DIOXIDE LEVEL 24 MEQ/L (21-32); CHLORIDE LEVEL 105 MEQ/L (98-107); CK-MB VALUE MASS 1.5 NG/ML (<3.6); CPK CREATINE PHOSPHOKINASE 39 U/L (39-308); CREATININE FOR GFR 1.39 MG/DL (0.70-1.30); GLOMERULAR FILTRATION RATE 51.6 (>35); GLUCOSE, FASTING 87 MG/DL (70-100); MB/CK RELATIVE INDEX 3.85 (< OR =4); POTASSIUM SERUM 4.5 MEQ/L (3.5-5.1); SODIUM LEVEL 135 MEQ/L (136-145); TROPONIN I < 0.02 NG/ML (< 0.10)
[2019-10-15 08:00] VITALS: BP 139/67
[2019-10-15] MEDS: ACYCLOVIR 200 MG CAPSULE PO SCH (08:55)
[2019-10-15] MEDS: ENOXAPARIN 80MG/0.8ML SYRINGE (J1650 PER 10MG) SC SCH (08:56)
[2019-10-15] MEDS ORDERED: VITAMIN D 1,000 INTERNATIONAL UNITS TABLET PO SCH (09:00)
[2019-10-15] MEDS ORDERED: PANTOPRAZOLE 40MG TAB (PROTONIX) PO SCH (09:00)
[2019-10-15] MEDS ORDERED: MIRALAX *UNIT DOSE* 17GM PACKET PO SCH (09:00)
[2019-10-15] MEDS ORDERED: BACTRIM 160MG/800MG DS TAB PO SCH (09:00)
[2019-10-15] MEDS ORDERED: MONTELUKAST 10 MG TAB PO SCH (09:00)
[2019-10-15] MEDS ORDERED: FUROSEMIDE 20 MG TAB PO SCH (09:00)
--- NOTE | 2019-10-15 10:11 | ECGEPIP ---
[facility] - ED Test Date: 2019-10-14 Pat Name: ADRIAN MCCARTY Department: Room: - Gender: Male Copy Manager: chivo : [id number] Requested By: NAMAN Ruiz Order Number: [id number] Reading MD: Rosa Cabrera Measurements Intervals [place] Rate: 90 P: 44 IL: 201 QRS: -16 QRSD: 107 T: 19 QT: 354 QTc: 434 Interpretive Statements SINUS RHYTHM WITH FREQUENT VENTRICULAR PREMATURE COMPLEXES LEFT VENTRICULAR HYPERTROPHY AND ST-T CHANGE NSTTW abnormalities Electronically Signed on 10-15-2019 10:11:21 EDT by Rosa Cabrera
[2019-10-15 13:45] VITALS: BP 142/75
--- NOTE | 2019-10-15 14:29 | REP ---
REASON FOR EXAM: Rule out pulmonary embolism. After the intravenous administration of 5.2 millicuries of technetium 99m MAA, a perfusion lung study was performed. After the inhalation of 1 millicurie of technetium 99m DTPA aerosol, a ventilation study was performed. There are no priors for comparison. There are a few ventilation perfusion matching defects. There is no ventilation perfusion mismatch defects. IMPRESSION: Low probability for pulmonary embolism. Electronically Signed by Anmol Reynolds DO 10/15/2019 04:01 P
--- NOTE | 2019-10-15 14:41 | HPE ---
DATE OF ADMISSION: 10/14/2019 CHIEF COMPLAINT: Shortness of breath, weakness. HISTORY OF PRESENT ILLNESS: This is an 84-year-old male with history of oligosecretory IgA Jay multiple myeloma diagnosed October 2017, with history of refractory anemia, vertebral fractures, status post T6 to T8, T12 kyphoplasty, with plasma cell involvement and progression of disease secondary to peripheral neuropathy, moderate to severe aortic stenosis on echocardiogram on July 2019, followed by brand representative, Dr. John Casey, in [place], hypertension, hyperlipidemia, benign prostatic hypertrophy (BPH), peptic ulcer disease, diverticulosis, spinal vertebral fractures, iron deficiency anemia, peripheral vascular disease, status post femoral popliteal bypass surgery, bilateral fat containing inguinal hernias, skin melanomas with resection, gastrointestinal (GI) bleed via scope with diverticulosis and polyps and gastric ulcerations, presents to the emergency room with complaints of worsening shortness of breath. The patient says "chemo, that is what's doing it". The patient had chemotherapy last Friday. Said that he went back last . Seen again this morning and now seen today and sent to the emergency room due to worsening shortness of breath, to rule out either congestive heart failure due to history of moderate aortic stenosis or pulmonary embolism. The patient denies any lower extremity edema, history of deep vein thromboses (DVTs) or blood clots. Pulmonary embolisms (PEs) in the past. He also denies any history of coronary artery disease, myocardial infarction (IA), congestive heart failure, but does have moderate . He says he has been sleeping okay in bed, has not needed to stay on his recliner. He also denies any recent weight gain, paroxysmal nocturnal dyspnea (PND) or orthopnea. The patient does complain of dyspnea on exertion. No chest pain, pressure or tightness, lightheadedness or dizziness. No palpitations. No history of atrial fibrillation, atrial flutter. The patient is not a surgical candidate. According to the patient for his moderate, aortic stenosis () or due to his advanced age and comorbidity, have multiple myeloma, which is progressive and he has mostly been managed with medications to decrease the afterload. At this time, the patient has been sent to the emergency room (ER) for further evaluation of his respiratory distress. 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 John Casey, hypertension, hyperlipidemia, benign prostatic hypertrophy (BPH), peptic ulcer disease, diverticulosis, spinal vertebral fractures, iron deficiency anemia, peripheral vascular disease, status post femoral popliteal bypass surgery, bilateral fat containing inguinal hernias, skin melanomas status post excision, gastrointestinal (GI) bleed with diverticulosis and gastric ulcerations. SOCIAL HISTORY: Lives alone. Denies alcohol and drug use. Retired. FAMILY HISTORY: Noncontributory due to advanced age. HOME MEDICATIONS: - acyclovir 400 mg twice a day - vitamin D 3000 units daily - vitamin B12 1000 mcg at bedtime (q.h.s.) - Lasix 20 mg daily - montelukast 10 mg daily - Zofran 8 mg every 6 hours as needed - Protonix 40 mg daily - polyethylene glycol 17 gm daily - Xarelto 10 mg daily - rosuvastatin 20 mg at bedtime (q.h.s.) - Bactrim 1 tablets three times weekly - telmisartan 20 mg at bedtime (q.h.s.) - calcium with vitamin D one tablet by mouth twice a day REVIEW OF SYSTEMS: Per history of present illness. 12-point system otherwise negative. PHYSICAL EXAMINATION: Temperature 98.5, pulse 84, respiratory rate 20, blood pressure 131/62, 95% on room air. General: The patient is awake, alert, and oriented, answering questions appropriately. Face is symmetric. Tongue is midline. Dry mucous membranes and chapped lips. No jugular venous distension (JVD) or thyromegaly. No cervical lymphadenopathy. Poor dentition. Lungs: Diminished breath sounds. Clear to auscultation. No wheeze and no rales. Heart: S1, S2. Sinus rhythm. Systolic ejection murmur heard at the right sternal border radiating to the carotids. Abdomen: Soft and nontender, nondistended. Positive bowel sounds. Extremities: No clubbing, cyanosis or pitting edema. LABORATORY DATA: Troponin 0.01, BNP 1033, total bilirubin 0.2, direct bilirubin less than 0.1, AST 23, ALT 31, alkaline phosphatase 72,albumin 3.3, thyroid simulating hormone (TSH) 2.69, T4 is 8.2. Blood culture is pending. Chest x-ray: MediPort catheter in the superior vena cava, cardiomegaly, evidence of fibrosis. No acute patchy opacity or pleural effusions have developed. No evidence of acute cardiopulmonary disease. ASSESSMENT AND PLAN: This is an 84-year-old with moderate severe aortic stenosis, peripheral neuropathy, multiple myeloma with progressive disease, hypertension, hyperlipidemia, benign prostatic hypertrophy (BPH), peptic ulcer disease, diverticulosis, gastric ulcerations, melanoma, bilateral inguinal hernia and colonic polyps, presents to the emergency room, currently on chemotherapy with worsening shortness of breath. The patient says "the chemo does this." IMPRESSION: 1. Shortness of breath. Differential diagnosis include pulmonary embolism, symptomatic anemia, demand-mediated ischemia, fluid overload, infection. The patient is currently on Lovenox 1 mg per kg every 12 hours. V/Q scan to be done in the morning as the patient could not receive contrast study today. Will check a respiratory panel. BNP slightly elevated, but the patient's chest x-ray has not acute cardiopulmonary disease and he does have a history of moderately severe aortic stenosis. Therefore will avoid over diuresis as it could exacerbate congestive heart failure (CHF) and syncopal episodes. We will obtain a 2 dimensional echocardiogram to see whether it is becoming much more symptomatic from this moderate aortic stenosis. The patient is not a surgical candidate due to advanced age and due to progressive multiple myeloma. 2. Multiple myeloma. The patient is currently on chemotherapy managed by the [facility]. Outpatient followup, was medically stable and discharged home. 3. Hypertension. Resumed on his home dose of Micardis and Lasix. 4. Chronic constipation on MiraLax. 5. Hyperlipidemia on Crestor. 6. History of gastrointestinal (GI) bleed and diverticular bleeding, colonic polyps and gastric ulcers. Continue on Protonix. 7. Deconditioning due to chemotherapy. has 28/10 caregiver at home. PT consulted. 8.Chemotherapy induced myelosuppression. monitor blood counts, transfuse rbc if needed. MTDD
[2019-10-15] MEDS ORDERED: SODIUM CHLORIDE 0.9% INJ 10 ML SYR IV PRN (14:45)
--- NOTE | 2019-10-15 16:05 | DSES ---
DATE OF ADMISSION: 10/14/2019 DATE OF DISCHARGE: PRIMARY DISCHARGE DIAGNOSES: 1. Chemotherapy induced myelosuppression with symptomatic anemia. 2. Deconditioning secondary to chemotherapy. 3. Multiple myeloma with progressive disease. 4. Shortness of breath. Pulmonary embolism (PE) ruled out. 5. History of severe aortic stenosis. Congestive heart failure (CHF) ruled out. Acute coronary syndrome ruled out. 6. Peripheral neuropathy secondary to chemotherapy, chronic. 7. Osteoarthritis, chronic. DISCHARGE MEDICATIONS: - Xarelto 10 mg daily - calcium with vitamin D one tablet twice a day - acyclovir 400 twice a day - vitamin D 1000 units daily - B12 1000 units nightly - Lasix 20 daily - montelukast 10 daily - ondansetron 8 mg as needed - Protonix 40 daily - MiraLAX one daily - rosuvastatin 20 nightly - Bactrim three times weekly - telmisartan 20 nightly HOSPITAL COURSE: This is an 84-year-old male with history of multiple myeloma with progressive disease, currently on chemotherapy, usually receives one unit red blood cell (RBC) transfusion with chemotherapy induced myelosuppression presents to the emergency room with symptomatic anemia, was found to have a decreasing hemoglobin from 11.5 to 10.3 to 8.9. Patient was found to be thrombocytopenic also due to myelosuppression from chemotherapy with previous platelet count of 266, currently at 67, admitted for further evaluation. EKG was sinus rhythm with premature ventricular contractions (PVCs). Troponin was negative. Cardiac markers were cycled throughout the night. Patient was not complaining of any chest pain or pressure. Troponins were negative times two sets. He was found to have acute kidney injury with creatinine of 1.69, improved to 1.39. CT of the chest performed showed no pulmonary edema, no pleural effusion, there is no pneumonia. No empiric antibiotics were given. He was noted to be anemic with fatigue and shortness of breath, but pt had antibodies and would need to wait 24hrs to obtain blood.pt opted to fu with his medical oncologist instead. He wanted to go home and says he has 24/7 care at home. Respiratory panel was negative,and so was a hemoccult stool. Blood cultures remained negative. Patient was placed on Lovenox subcutaneous every 12 hours and V/Q scan was done to rule out PE. Patient is back to his baseline strength, 97% on room air, passed home safety evaluation, and discharged home after one unit of RBC transfusion. PHYSICAL EXAMINATION ON DISCHARGE: Temperature 97.1, pulse 89, respiratory rate 19, blood pressure 139/67, 97% on room air. GENERALLY: Patient is awake, alert, oriented to person, place, and time, answering questions appropriately. No icterus, no pallor, no jaundice. No jugular venous distention (JVD) or thyromegaly. LUNGS: Diminished but clear to auscultation. No wheezing, rales, or rhonchi. HEART: S1, S2, sinus rhythm. ABDOMEN: Obese, soft, nontender, nondistended. EXTREMITIES: No pitting edema. LABORATORY DATA: White count 4.2, hemoglobin 8.9, hematocrit 27, platelet count 67. Repeat CBC is not available. Sodium 135, potassium 4.5, chloride 105, bicarbonate 24, BUN 32, creatinine 1.39, glucose 87. Troponin less than 0.02. MB fraction of 1.5, total CK of 39. Microbiology: Respiratory panel negative. Blood cultures pending. Hemoccult stool is pending. CT chest, stable chronic changes, no acute pulmonary disease. TIME SPENT ON DISCHARGE: 30 minutes MTDD
[2019-10-16] MEDS ORDERED: SODIUM CHLORIDE 0.9% INJ 10 ML SYR IV SCH (09:00)
--- NOTE | 2019-10-16 11:09 | ECHO ---
DATE OF PROCEDURE: 10/15/2019 DATE OF : 07/28/1955 REFERRING PROVIDER: Dr. Marlen Solorzano PATIENT LOCATION: Room 3230 REASON FOR THE STUDY: Shortness of breath. 2-D MEASUREMENTS: IVS: 1.4 cm LV: 4.7 cm LVPW: 1.4 cm LA: 3.0 cm Aorta: 3.4 cm DOPPLER MEASUREMENTS: Peak velocity across the aortic valve: 2.9 m/s Peak velocity across the LVOT: 0.84 m/s Peak gradient across the aortic valve: 33 mmHg Mean gradient across the aortic valve: 30 mmHg Mitral E: 0.63, Mitral A: 0.75 with a ratio of 0.8 Maximum tricuspid valve velocity: 2.1 m/s 2-D COMMENTS: 1. Mildly increased left ventricular wall thickness with normal left ventricular size. Left ventricular systolic function is normal with a left ventricular ejection fraction (LVEF) estimated at 60-65%. 2. Normal left atrium. Normal right atrium and right ventricle normal noted in limited views. There is a sigmoid appearance of the basal ventricular septum, a benign finding. 3. The atrial septum appeared to be normal without evidence of defect or shunt. 4. Normal aortic root. 5. Trace pericardial effusion noted, no evidence of cardiac tamponade. 6. Moderately calcified aortic valve with mildly decrease in leaflet excursion. Mildly calcified mitral annulus with normal anterior mitral leaflet motion. Normal tricuspid valve and pulmonic valve. The proximal pulmonary artery branches were not well visualized. 7. The inferior vena cava was not well visualized. DOPPLER: It detects trace aortic radiation, moderate eccentric posteriorly directed mitral regurgitation, trace to mild tricuspid regurgitation. The calculated pulmonary artery systolic pressure was normal. Abnormal relaxation pattern was noted across the mitral valve leaflets as well as the mitral valve annulus consistent with features of grade 1 left ventricular diastolic dysfunction. IMPRESSION: 1. Normal global left ventricular systolic function with mild concentric left ventricular hypertrophy. There are some features of grade 1 left ventricular diastolic dysfunction manifested by abnormal relaxation. 2. Aortic valve sclerosis with trace aortic regurgitation and mild aortic stenosis. 3. Mitral annulus calcification with moderate eccentric mitral regurgitation. 4. Trace to mild tricuspid regurgitation with a normal calculated pulmonary artery systolic pressure. 5. Trace pericardial effusion noted, no evidence of cardiac tamponade. 6. A sigmoid appearance of the basal ventricular septum was noted, a benign finding.
== END 2019-10-15 16:02 | disposition home or self-care (01) | DRG 812 ==
LOC: M ED 12:11 → M ED INP 17:19 → ENRESERV 19:56 → M PCU 21:06
PROVIDERS: ADMIT General Practice; ATTEND General Practice
DX: D64.81 Anemia due to antineoplastic chemotherapy (principal); C90.00 Multiple myeloma not having achieved remission; I35.0 Nonrheumatic aortic (valve) stenosis; G62.9 Polyneuropathy, unspecified; M19.90 Unspecified osteoarthritis, unspecified site; Z79.899 Other long term (current) drug therapy; K59.00 Constipation, unspecified; I10 Essential (primary) hypertension; E78.5 Hyperlipidemia, unspecified; N40.0 Benign prostatic hyperplasia without lower urinary tract symptoms; K57.30 Diverticulosis of large intestine without perforation or abscess without bleeding

== ENCOUNTER → 2019-10-19 | Outpatient (POV) | payer MEDICARE ==
--- NOTE | 2019-10-21 11:33 | IRPN ---
[facility] IR Progress Note IR Progress Note DATE: Oct 19, 2019 Patient agreed to this telephone consultation. Duration of call was 5 minutes. FOLLOW-UP: Status post port placement. Patient states he is doing well. Port being used without any difficulty. No fevers, chills or pain. ON EXAMINATION: No video on patient side. IMPRESSION: Doing well status post port placement. No further follow-up scheduled unless initiated by patient and or referring provider. Thank you for this referral Allergies Coded Allergies: lidocaine (Verified Allergy, Mild, SWEATY, FAINTING, 08/31/19) mepivacaine (Verified Allergy, Unknown, SWEATING, FAINTING, 08/31/19) tamsulosin (Verified Adverse Reaction, Intermediate, CONFUSION, 08/31/19) prednisone (Verified Adverse Reaction, Mild, CONFUSION, 08/31/19) donepezil (Verified Adverse Reaction, Unknown, HALLUCINATION, 08/31/19) erythromycin base (Verified Adverse Reaction, Unknown, HALLUCINATION, 08/31/19) simvastatin (Verified Adverse Reaction, Unknown, CONFUSION, 08/31/19) DARRYL DOMINGUEZ MD Oct 21, 2019 11:33
== END ==
LOC: M IRPOV 09:11
PROVIDERS: ATTEND Radiology Diagnostic Radiology
DX: Z45.2 Encounter for adjustment and management of vascular access device (principal)

== ENCOUNTER 2019-11-04 13:15 | Outpatient (CLI) | payer MEDICARE ==
[~2019-11-04 13:15] MED LIST changes: +ACETAMINOPHEN 325 MG TAB As Ordered ONE; +ACETAMINOPHEN 325 MG TAB ONE; -ASPI81TA85 PO; +ASPI81TA86 PO; +D31000TA2 PO; +PANT40TA29 PO; -PANT40TA3 PO; -VITAD1000T PO; +diphenhydrAMINE 25MG CAP As Ordered ONE; +diphenhydrAMINE 25MG CAP ONE
[2019-12-17] MEDS ORDERED: AUGM875T28 PO (14:48)
== END 2019-11-04 16:30 | disposition home or self-care (01) ==
LOC: M INFU 13:15
PROVIDERS: ATTEND Specialist
DX: D64.9 Anemia, unspecified (principal)
CPT/HCPCS: 36430; J1642

== ENCOUNTER 2019-11-08 01:30 | Inpatient (IN) | payer MEDICARE ==
[~2019-11-08 01:30] MED LIST changes: -ACETAMINOPHEN 325 MG TAB As Ordered ONE; -ACETAMINOPHEN 325 MG TAB ONE; -diphenhydrAMINE 25MG CAP As Ordered ONE; -diphenhydrAMINE 25MG CAP ONE
[2019-11-08] MEDS ORDERED: FUROSEMIDE 40MG/4ML VIAL (J1940) ONE (12:19)
[2019-11-09] MEDS ORDERED: FUROSEMIDE 20MG/2ML VIAL (J1940) ONE (03:32)
[2019-11-09] MEDS ORDERED: BACTRIM 160MG/800MG DS TAB ONE (08:00)
[2019-11-09] MEDS ORDERED: OYSTER SHELL CALCIUM 500 MG TAB ONE (08:00)
[2019-11-09] MEDS ORDERED: ACYCLOVIR 200 MG CAPSULE ONE (08:00)
[2019-11-09] MEDS ORDERED: MONTELUKAST 10 MG TAB ONE (10:55)
[2019-11-09] MEDS ORDERED: PANTOPRAZOLE 40MG TAB (PROTONIX) ONE (10:55)
[2019-11-09] MEDS ORDERED: MULTIVITAMINS/MINERALS THERAP 1 TAB ONE (10:55)
[2019-11-09] MEDS ORDERED: VITAMIN D 1,000 INTERNATIONAL UNITS TABLET ONE (10:55)
[2019-11-09] MEDS ORDERED: CYANOCOBALAMIN 500 MCG TAB ONE (10:55)
[2019-11-09] MEDS ORDERED: CALCIUM/VITAMIN D 500 MG TAB ONE (10:55)
[2019-11-09] MEDS ORDERED: RIVAROXABAN 10 MG TAB (XARELTO) ONE (18:04)
[2019-11-09] MEDS ORDERED: ROSUVASTATIN 10 MG TAB (CRESTOR) ONE (18:04)
[2019-11-10] MEDS ORDERED: VITAMIN D 1,000 INTERNATIONAL UNITS TABLET ONE (09:37)
[2019-11-10] MEDS ORDERED: ASPIRIN 81 MG ENTERIC TAB ONE (09:37)
[2019-11-10] MEDS ORDERED: PANTOPRAZOLE 40MG TAB (PROTONIX) ONE (09:37)
[2019-11-10] MEDS ORDERED: CYANOCOBALAMIN 500 MCG TAB ONE (09:37)
[2019-11-10] MEDS ORDERED: MULTIVITAMINS/MINERALS THERAP 1 TAB ONE (09:37)
[2019-11-10] MEDS ORDERED: CLOPIDOGREL 75 MG TAB ONE (09:37)
[2019-11-10] MEDS ORDERED: ACYCLOVIR 200 MG CAPSULE ONE (13:00)
[2019-11-10] MEDS ORDERED: OYSTER SHELL CALCIUM 500 MG TAB ONE (13:00)
[2019-11-10] MEDS ORDERED: ROSUVASTATIN 10 MG TAB (CRESTOR) ONE (21:03)
[2019-11-11] MEDS ORDERED: CLOPIDOGREL 75 MG TAB ONE (10:04)
[2019-11-11] MEDS ORDERED: PANTOPRAZOLE 40MG TAB (PROTONIX) ONE (10:04)
[2019-11-11] MEDS ORDERED: VITAMIN D 1,000 INTERNATIONAL UNITS TABLET ONE (10:04)
[2019-11-11] MEDS ORDERED: ACETAMINOPHEN TAB 650MG DOSE (2X325MG) ONE ×2 (10:04→20:35)
[2019-11-11] MEDS ORDERED: LevoFLOXacin 500 MG TABLET ONE (10:04)
[2019-11-11] MEDS ORDERED: MULTIVITAMINS/MINERALS THERAP 1 TAB ONE (10:04)
[2019-11-11] MEDS ORDERED: CYANOCOBALAMIN 500 MCG TAB ONE (10:04)
[2019-11-11] MEDS ORDERED: ASPIRIN 81 MG ENTERIC TAB ONE (10:04)
[2019-11-11] MEDS ORDERED: ROSUVASTATIN 10 MG TAB (CRESTOR) ONE (20:35)
[2019-11-12] MEDS ORDERED: MULTIVITAMINS/MINERALS THERAP 1 TAB ONE (10:41)
[2019-11-12] MEDS ORDERED: ASPIRIN 81 MG ENTERIC TAB ONE (10:41)
[2019-11-12] MEDS ORDERED: ACETAMINOPHEN TAB 650MG DOSE (2X325MG) ONE (10:41)
[2019-11-12] MEDS ORDERED: VITAMIN D 1,000 INTERNATIONAL UNITS TABLET ONE (10:41)
[2019-11-12] MEDS ORDERED: LevoFLOXacin 500 MG TABLET ONE (10:41)
[2019-11-12] MEDS ORDERED: CYANOCOBALAMIN 500 MCG TAB ONE (10:41)
[2019-11-12] MEDS ORDERED: CLOPIDOGREL 75 MG TAB ONE (10:41)
[2019-11-12] MEDS ORDERED: PANTOPRAZOLE 40MG TAB (PROTONIX) ONE (10:41)
--- NOTE | 2019-12-15 08:27 | CR ---
DATE: 11/11/2019 REASON FOR CONSULTATION: Multiple myeloma. HISTORY OF PRESENT ILLNESS: I had the pleasure of seeing . Jesús Marc in consultation for multiple myeloma. As you know, Mr. 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 Pathology confirmed plasma cell involvement. Patient has been transfusion dependent and with rising free kappa light chain and IgA. Patient was treated with lenalidomide 10 mg, dexamethasone 8 mg from October 2017 until April 2018. Patient was showing progress and became transfusion dependent again, so it was stopped. Patient was started on ixazomib mg day 1, 8, and 15 with pomalidomide 2 mg day 1-21, dexamethasone 8 mg weekly. This was started on June 2019, 28-day cycle. Patient developed anemia, and pomalidomide was reduced. Eventually patient was switched to daratumumab along with Velcade. Patient has been getting daratumumab weekly, but then he has many cardiac issues, and he has been getting blood transfusions because of dropping hemoglobin. Lately he developed acute congestive heart failure and was admitted to critical care unit (CCU). Currently he is stable and has been seen by Dr. Hilliard for his heart. Patient has aortic stenosis and coronary artery disease with congestive heart failure but currently he is not feeling short of breath and much compensated. Patient's Xarelto has been switched to aspirin and Plavix. PHYSICAL EXAMINATION: VITAL SIGNS: Stable. HEENT: Within normal limits. (WNL), extraocular muscles intact (EOMI). Oral cavity clear without mucositis or thrush. CARDIAC: Ejection systolic murmur at the aortic area. LUNGS: Clear to auscultation and percussion. ABDOMEN: Soft. Bowel sounds present. No hepatosplenomegaly. MUSCULOSKELETAL: Normal without any deformity. EXTREMITIES: Without any edema. SKIN: Clear and dry without rashes or lesions. LYMPH NODE SURVEY: None palpable in cervical supraclavicular, axillary, or inguinal region. NEUROLOGIC: Patient has history of polio in his childhood and has weakness of the right leg because of previous polio. LABORATORY DATA: CBC from today on 11/11/2019, WBC 6.14, hemoglobin 9.5, hematocrit 29.3, platelet count 182. Chemistry 11/11/2019: Potassium 4.7, sodium 128, chloride 95, bicarbonate 26, glucose 106, BUN 17, creatinine 1.14, calcium 8.6, magnesium 1.9. ASSESSMENT AND PLAN: Mr. Jesús Marc is an 84-year-old white gentleman who has multiple comorbidities, including congestive heart failure, coronary artery disease, and multiple myeloma. He has been given many medications. He has multiple comorbidities. Currently he was admitted with congestive heart failure and he is doing well now. His life expectancy will depend on his cardiac condition and his coronary artery disease. Multiple myeloma is a chronic disorder, and choice of the treatment will be to switch daratumumab to a different medicine since daratumumab is a high-volume medications, which may cause volume overload, and patient may go back into congestive heart failure. I feel that we can start him with low-dose Kyprolis, which is given weekly, 3 weeks on, 1 week off, with low-dose dexamethasone to keep the disease under control. Other choice would be to just hold the medicine and watch and wait to give him a break from his treatment. Currently he is going to go home tomorrow, and once he is discharged he will be followed up as outpatient for further decision making. I talked to the patient and his in detail and about further treatment options, and they agree to discuss it further once he is discharged from [facility] [place]. CODY
[2019-12-17] MEDS ORDERED: AUGM875T28 PO (14:48)
--- NOTE | 2019-12-23 14:39 | ECGEPIP ---
SINUS RHYTHM WITH FIRST DEGREE AV BLOCK LEFT VENTRICULAR HYPERTROPHY AND ST-T CHANGE VS ISCHEMIA ABNORMAL ECG NO OLD SEE SCANNED DOWNTIME REPORT MTDD
[2019-12-29 19:54] LABS: BASO % 0.2 % (0.0-1.0); EOS # 0.1 10^3/uL (0.0-0.5); EOS % 1.3 % (0.0-3.0); HEMATOCRIT 25.9 % (42.0-52.0); HEMOGLOBIN 8.5 g/dl (13.5-17.5); LYMPH # 0.5 10^3/uL (1.5-5.0); LYMPH % 8.5 % (24.0-44.0); MEAN CORPUSCULAR HEMOGLOBIN 29.3 pg (27.0-33.0); MEAN CORPUSCULAR HGB CONC 32.8 g/dl (32.0-36.5); MEAN CORPUSCULAR VOLUME 89.3 fl (80.0-96.0); MONO # 0.9 10^3/uL (0.0-0.8); MONO % 16.3 % (0.0-5.0); NEUTROPHILS % 73.3 % (36.0-66.0); PLATELET COUNT, AUTOMATED 155 10^3/uL (150-450); WHITE BLOOD COUNT 5.4 10^3/uL (4.0-10.0)
[2019-12-30 01:14] LABS: INR 1.83; PARTIAL THROMBOPLASTIN TIME 44.8 SECONDS (24.2-38.5); PROTHROMBIN TIME 21.5 SECONDS (12.5-14.3)
[2019-12-30 02:26] LABS: APPEARANCE, URINE CLEAR (CLEAR); BACTERIA, URINE AUTO NEGATIVE (NEGATIVE); BILIRUBIN, URINE AUTO NEGATIVE (NEGATIVE); BLOOD, URINE BLOOD NEGATIVE (NEGATIVE); COLOR, URINE YELLOW (YELLOW); GLUCOSE, URINE (UA) AUTO NEGATIVE (NEGATIVE); KETONE, URINE AUTO NEGATIVE (NEGATIVE); LEUKOCYTE ESTERASE, URINE AUTO NEGATIVE (NEGATIVE); NITRITE, URINE AUTO NEGATIVE (NEGATIVE); PROTEIN, URINE AUTO NEGATIVE (NEGATIVE); RBC, URINE AUTO 0 /HPF (0-3); SQUAMOUS EPITHELIAL CELL UR AU 0 /HPF (0-6); UROBILINOGEN, URINE AUTO 0.2 mg/dL (0.0-2.0); WBC, URINE AUTO 0 /HPF (0-3)
--- NOTE | 2019-12-31 07:36 | REP ---
CHEST X-RAY: 2-VIEWS COMPARISON: Chest x-ray 08/21/2017. FINDINGS: A right-sided Infusaport catheter is seen in place with its tip in the expected location of the superior vena cava. There is a granulomatous calcification in the right upper lobe and there is methyl methacrylate in two levels of the thoracic vertebral column consistent with prior vertebroplasty. A vertebroplasty is performed at the thoracolumbar junction as well. Cardiomegaly is observed. This is unchanged. The aorta is calcific and tortuous. There is mitral annular calcification. Some mild benign pleural thickening is present. Multiple old healed rib fractures are visible bilaterally. No acute infiltrate is seen. IMPRESSION: No evidence of infiltrate or effusion. Cardiomegaly. Right-sided Infusaport catheter. Multilevel vertebroplasties. MTDD
--- NOTE | 2019-12-31 07:37 | REP ---
PORTABLE CHEST X-RAY: HISTORY: CHF exacerbation, shortness of breath. COMPARISON: None. FINDINGS: The patient is rotated somewhat to the left. There is a right-sided Infusaport catheter with its tip in the excepted location in the superior vena cava. There are granulomatous calcifications in the right hilar and left hilar region as well as in the right lung. The heart is enlarged. There is evidence of mitral annular calcification. Pulmonary vasculature is not increased. No focal infection is seen. There are multiple healing rib fractures bilaterally. IMPRESSION: No focal infection. Cardiomegaly. Old granulomatous calcifications. A right- sided Infusaport catheter. MTDD
[2020-01-04 11:42] LABS: ALBUMIN 2.6 GM/DL (3.2-5.2); ALT/SGPT 23 U/L (12-78); BILIRUBIN,TOTAL 0.3 MG/DL (0.2-1.0); BLOOD UREA NITROGEN 22 MG/DL (7-18); CALCIUM LEVEL 8.7 MG/DL (8.8-10.2); CARBON DIOXIDE LEVEL 25 MEQ/L (21-32); CHLORIDE LEVEL 93 MEQ/L (98-107); CK-MB VALUE MASS < 1.0 NG/ML (<3.6); CPK CREATINE PHOSPHOKINASE 23 U/L (39-308); CREATININE FOR GFR 1.14 MG/DL (0.70-1.30); GLOMERULAR FILTRATION RATE > 60.0 (>35); GLUCOSE, FASTING 140 MG/DL (70-100); MB/CK RELATIVE INDEX 4.35 (< OR =4); PHOSPHORUS LEVEL 3.1 MG/DL (2.5-4.9); POTASSIUM SERUM 5.2 MEQ/L (3.5-5.1); SODIUM LEVEL 127 MEQ/L (136-145); TOTAL PROTEIN 5.7 GM/DL (6.4-8.2)
--- NOTE | 2020-01-04 12:09 | ECGEPIP ---
NORMAL SINUS RHYTHM WITH FIRST DEGREE AV BLOCK LOW QRS VOLTAGE IN LIMB LEADS ANTEROLATERAL ISCHEMIA SUGGESTED COMPARISON NOT AVAILABLE SEE SCANNED DOWNTIME REPORT MTDD
[2020-01-08 08:33] LABS: HEMATOCRIT 25.8 % (42.0-52.0); HEMOGLOBIN 8.4 g/dl (13.5-17.5); MEAN CORPUSCULAR HEMOGLOBIN 29.2 pg (27.0-33.0); MEAN CORPUSCULAR HGB CONC 32.6 g/dl (32.0-36.5); MEAN CORPUSCULAR VOLUME 89.6 fl (80.0-96.0); PLATELET COUNT, AUTOMATED 154 10^3/uL (150-450); RED BLOOD COUNT 2.88 10^6/uL (4.30-6.10); WHITE BLOOD COUNT 4.9 10^3/uL (4.0-10.0)
[2020-01-08 11:29] LABS: HEMATOCRIT 29.3 % (42.0-52.0); HEMOGLOBIN 9.5 g/dl (13.5-17.5); MEAN CORPUSCULAR HEMOGLOBIN 29.4 pg (27.0-33.0); MEAN CORPUSCULAR HGB CONC 32.4 g/dl (32.0-36.5); MEAN CORPUSCULAR VOLUME 90.7 fl (80.0-96.0); PLATELET COUNT, AUTOMATED 182 10^3/uL (150-450); RED BLOOD COUNT 3.23 10^6/uL (4.30-6.10); WHITE BLOOD COUNT 6.1 10^3/uL (4.0-10.0)
--- NOTE | 2020-01-15 08:08 | IPN ---
DATE: 11/12/2019 SUBJECTIVE: Patient seen and examined at the bedside. Chart has been reviewed. He denies any chest pain, pressure, tightness, lightheadedness, or dizziness. Shortness of breath is significantly improved. He has not been on any Lasix due to severe and low blood pressure. No issues overnight per nursing. OBJECTIVE: VITAL SIGNS: Temperature 97.3, pulse 87, respiratory rate 18, blood pressure 125/73, oxygen saturation 95% on room air. Input 1740, output 1989. Current weight 78.5 kg with admission weight of 79.3 kg. GENERAL: Patient is awake, alert, and oriented x3. Answering questions appropriately. No respiratory accessory muscle use. No conversational dyspnea. HEENT: No JVD. No thyromegaly. No cervical lymphadenopathy. Moist mucous membranes. LUNGS: Diminished. Clear to auscultation. No wheezing, rales, or rhonchi. HEART: S1, S2, sinus rhythm. Systolic ejection murmur 2/6 radiating to the carotids. No clicks, rubs, or gallops. ABDOMEN: Soft, nontender, and nondistended with positive bowel sounds. EXTREMITIES: No cyanosis or clubbing. Trace lower extremity edema. LABORATORY DATA: Urine culture was E. faecalis and Staph epidermidis both sensitive to Levaquin, resistant to quinupristin/dalfopristin. White count 5.4, hemoglobin 8.5, hematocrit 25, platelet count 155,000. Sodium 130, potassium 4.4, chloride 98, bicarb 26, BUN 15, creatinine 1, glucose 103. Troponin 1.27. MB fraction 1.6, total CK of 94. ASSESSMENT AND PLAN: This is an 84-year-old male with history of multiple myeloma on chronic chemotherapy with 6-12 month survival expectation, admitted due to congestive heart failure and troponin elevation status post chemotherapy with normal ejection fraction, moderate aortic stenosis, and moderate mitral regurgitation. Per medical oncologist, Dr. Santiago, patients prognosis is poor with estimated 6-12 month survival despite chemotherapy. Patient was admitted for congestive heart failure and was diuresed, but developed severe hypotension and Lasix had been discontinued since he has been euvolemic; and despite having a positive troponin and possible multivessel coronary artery disease, patient would be high risk for percutaneous intervention (PCI) for renal failure and cytopenia, and he is not a candidate for aortic stenosis repair. Per cardiology, patient is appropriate for palliative care and eventually for Hospice in the future. CURRENT ISSUES: * Congestive heart failure with preserved ejection fraction. Had received IV Lasix with presenting weight of 79.3 and discharge weight of 78.5 kg. He is currently euvolemic. Strict I (intake) and O (output), daily weights, and kept on a 2 liter fluid restriction. No diuretics due to mrybuugh-or-hdyuah aortic stenosis and risk of exacerbation of angina, syncope, and congestive heart failure. * Coronary artery disease (CAD) currently on aspirin and Plavix. Patients Xarelto has been discontinued. Patient appears to have multivessel disease, but not a candidate for PCI per cardiology. He is currently managed medically on aspirin, Plavix, and rosuvastatin. * Multiple myeloma with blood transfusion-dependence. At this time, he is kept on immunosuppressive therapy with Bactrim and acyclovir. * Urinary tract infection with Staphylococcus epidermidis and Enterococcus faecalis currently on Levaquin to complete a five day course. ____ to decrease risk of Clostridium difficile. 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 Had received two units of (red blood cells) RBC transfusion two weeks ago. Patients hemoglobin is stable and he is not requiring any blood transfusion during this admission. * Disposition: Patient is currently euvolemic appropriate for hospital discharge awaiting physical therapy (PT) clearance. * Disposition: Discharge home today or tomorrow pending PT clearance and cardiology. MTDD
[2020-01-16 14:05] LABS: HEMATOCRIT 28.1 % (42.0-52.0); HEMOGLOBIN 9.1 g/dl (13.5-17.5); MEAN CORPUSCULAR HEMOGLOBIN 29.2 pg (27.0-33.0); MEAN CORPUSCULAR HGB CONC 32.4 g/dl (32.0-36.5); MEAN CORPUSCULAR VOLUME 90.1 fl (80.0-96.0); PLATELET COUNT, AUTOMATED 183 10^3/uL (150-450); RED BLOOD COUNT 3.12 10^6/uL (4.30-6.10); WHITE BLOOD COUNT 4.6 10^3/uL (4.0-10.0)
[2020-01-17 01:21] LABS: ALBUMIN 3.1 GM/DL (3.2-5.2); ALT/SGPT 24 U/L (12-78); BILIRUBIN,TOTAL 0.3 MG/DL (0.2-1.0); BLOOD UREA NITROGEN 17 MG/DL (7-18); CALCIUM LEVEL 8.5 MG/DL (8.8-10.2); CARBON DIOXIDE LEVEL 25 MEQ/L (21-32); CHLORIDE LEVEL 100 MEQ/L (98-107); CREATININE FOR GFR 1.14 MG/DL (0.70-1.30); GLOMERULAR FILTRATION RATE > 60.0 (>35); GLUCOSE, FASTING 113 MG/DL (70-100); NT-PRO BNP 6809 PG/ML (<450); POTASSIUM SERUM 4.4 MEQ/L (3.5-5.1); SODIUM LEVEL 131 MEQ/L (136-145); TOTAL PROTEIN 5.7 GM/DL (6.4-8.2); TROPONIN I 1.43 NG/ML (< 0.10)
[2020-01-31 10:22] LABS: BLOOD UREA NITROGEN 15 MG/DL (7-18); CALCIUM LEVEL 8.3 MG/DL (8.8-10.2); CARBON DIOXIDE LEVEL 26 MEQ/L (21-32); CHLORIDE LEVEL 98 MEQ/L (98-107); CREATININE FOR GFR 1.02 MG/DL (0.70-1.30); GLOMERULAR FILTRATION RATE > 60.0 (>35); GLUCOSE, FASTING 103 MG/DL (70-100); MAGNESIUM LEVEL 1.7 MG/DL (1.8-2.4); POTASSIUM SERUM 4.4 MEQ/L (3.5-5.1); SODIUM LEVEL 130 MEQ/L (136-145)
[2020-01-31 16:42] LABS: BLOOD UREA NITROGEN 17 MG/DL (7-18); CALCIUM LEVEL 8.6 MG/DL (8.8-10.2); CARBON DIOXIDE LEVEL 26 MEQ/L (21-32); CHLORIDE LEVEL 95 MEQ/L (98-107); CK-MB VALUE MASS 2.7 NG/ML (<3.6); CPK CREATINE PHOSPHOKINASE 148 U/L (39-308); CREATININE FOR GFR 1.14 MG/DL (0.70-1.30); GLOMERULAR FILTRATION RATE > 60.0 (>35); GLUCOSE, FASTING 106 MG/DL (70-100); MAGNESIUM LEVEL 1.9 MG/DL (1.8-2.4); MB/CK RELATIVE INDEX 1.82 (< OR =4); POTASSIUM SERUM 4.7 MEQ/L (3.5-5.1); SODIUM LEVEL 128 MEQ/L (136-145); TROPONIN I 1.54 NG/ML (< 0.10)
[2020-02-01 10:19] LABS: MB/CK RELATIVE INDEX 6.45 (< OR =4); TROPONIN I 1.88 NG/ML (< 0.10)
[2020-02-01 11:48] LABS: BLOOD UREA NITROGEN 15 MG/DL (7-18); CALCIUM LEVEL 8.2 MG/DL (8.8-10.2); CARBON DIOXIDE LEVEL 28 MEQ/L (21-32); CHLORIDE LEVEL 94 MEQ/L (98-107); CK-MB VALUE MASS 4.3 NG/ML (<3.6); CPK CREATINE PHOSPHOKINASE 64 U/L (39-308); CREATININE FOR GFR 1.18 MG/DL (0.70-1.30); GLOMERULAR FILTRATION RATE > 60.0 (>35); GLUCOSE, FASTING 100 MG/DL (70-100); MB/CK RELATIVE INDEX 6.72 (< OR =4); POTASSIUM SERUM 4.1 MEQ/L (3.5-5.1); SODIUM LEVEL 126 MEQ/L (136-145); TROPONIN I 1.97 NG/ML (< 0.10)
[2020-02-01 11:48] LABS: CK-MB VALUE MASS 4.6 NG/ML (<3.6); MB/CK RELATIVE INDEX 6.76 (< OR =4); TROPONIN I 1.96 NG/ML (< 0.10)
[2020-02-01 11:48] LABS: CK-MB VALUE MASS 4.2 NG/ML (<3.6); MB/CK RELATIVE INDEX 4.52 (< OR =4); TROPONIN I 1.42 NG/ML (< 0.10)
[2020-02-02 20:21] LABS: IONIZED CALCIUM 4.3 MG/DL (4.5-5.3)
[2020-02-02 20:22] LABS: BLOOD UREA NITROGEN 16 MG/DL (7-18); CARBON DIOXIDE LEVEL 27 MEQ/L (21-32); CHLORIDE LEVEL 94 MEQ/L (98-107); CREATININE FOR GFR 1.03 MG/DL (0.70-1.30); GLOMERULAR FILTRATION RATE > 60.0 (>35); GLUCOSE, FASTING 102 MG/DL (70-100); MAGNESIUM LEVEL 1.9 MG/DL (1.8-2.4); NT-PRO BNP 4543 PG/ML (<450); POTASSIUM SERUM 3.9 MEQ/L (3.5-5.1); SODIUM LEVEL 126 MEQ/L (136-145)
== END 2019-11-12 07:00 | disposition home or self-care (01) | DRG 292 ==
LOC: M ED 01:30 → M PCU 16:40
PROVIDERS: ADMIT General Practice; ATTEND General Practice
DX: I11.0 Hypertensive heart disease with heart failure (principal); C90.00 Multiple myeloma not having achieved remission; N39.0 Urinary tract infection, site not specified; I50.9 Heart failure, unspecified; I35.0 Nonrheumatic aortic (valve) stenosis; D64.9 Anemia, unspecified; K21.9 Gastro-esophageal reflux disease without esophagitis; K44.9 Diaphragmatic hernia without obstruction or gangrene; N40.0 Benign prostatic hyperplasia without lower urinary tract symptoms; I25.10 Atherosclerotic heart disease of native coronary artery without angina pectoris; Z79.82 Long term (current) use of aspirin; Z66 Do not resuscitate; J43.9 Emphysema, unspecified

== ENCOUNTER 2019-11-18 20:30 | Inpatient (IN) | payer MEDICARE ==
[~2019-11-18 20:30] MED LIST changes: +MORPHINE 2 MG/ML 1ML VIAL (J2270) ONE; +ONDANSETRON 4MG/2ML VIAL ONE
[2019-11-18] MEDS ORDERED: ISOVUE-370 76% 100ML VIAL ONE (21:52)
[2019-11-19] MEDS ORDERED: VANCOMYCIN 1000MG/20ML VIAL ONE (00:23)
[2019-11-19] MEDS ORDERED: ZOSYN 3.375GM VIAL (J2543) ONE (00:23)
[2019-11-19] MEDS ORDERED: ROSUVASTATIN 10 MG TAB (CRESTOR) ONE (06:42)
[2019-11-19] MEDS ORDERED: ASPIRIN 81 MG ENTERIC TAB ONE (06:42)
[2019-11-19] MEDS ORDERED: ACETAMINOPHEN TAB 650MG DOSE (2X325MG) ONE (06:42)
[2019-11-19] MEDS ORDERED: ACETAMINOPHEN TAB 650MG DOSE (2X325MG) As Ordered ONE (06:42)
[2019-11-19] MEDS ORDERED: PANTOPRAZOLE 40MG VIAL (C9113 PER 1) ONE (06:42)
[2019-11-19] MEDS ORDERED: ROSUVASTATIN 10 MG TAB (CRESTOR) As Ordered ONE (06:42)
[2019-11-19] MEDS ORDERED: PANTOPRAZOLE 40MG VIAL (C9113 PER 1) As Ordered ONE (09:05)
[2019-11-19] MEDS ORDERED: ASPIRIN 81 MG ENTERIC TAB As Ordered ONE (09:09)
[2019-12-17] MEDS ORDERED: AUGM875T28 PO (14:48)
--- NOTE | 2019-12-22 15:38 | ECGEPIP ---
R/O SINIS TACHYCARDIA 1 DEGREE AVB BORDERLINE LEFT AXIS DEVIATION MODERATE VOLTAGE CRITERIA FOR LVH, CONSIDER NORMAL VARIANT MODERATE ST DEPRESSION ABNORMAL ECG SEE SCANNED DOWNTIME REPORT MTDD
[2020-01-03 02:30] LABS: BASO % 0.2 % (0.0-1.0); EOS # 0.1 10^3/uL (0.0-0.5); EOS % 0.7 % (0.0-3.0); HEMATOCRIT 24.5 % (42.0-52.0); HEMOGLOBIN 8.1 g/dl (13.5-17.5); LYMPH # 0.7 10^3/uL (1.5-5.0); MEAN CORPUSCULAR HEMOGLOBIN 29.2 pg (27.0-33.0); MEAN CORPUSCULAR HGB CONC 33.1 g/dl (32.0-36.5); MEAN CORPUSCULAR VOLUME 88.4 fl (80.0-96.0); MONO # 1.7 10^3/uL (0.0-0.8); MONO % 17.1 % (0.0-5.0); NEUTROPHILS # 7.2 10^3/uL (1.5-8.5); PLATELET COUNT, AUTOMATED 210 10^3/uL (150-450); RED BLOOD COUNT 2.77 10^6/uL (4.30-6.10); WHITE BLOOD COUNT 9.7 10^3/uL (4.0-10.0)
[2020-01-03 02:36] LABS: INR 1.12; PROTHROMBIN TIME 14.6 SECONDS (12.5-14.3)
[2020-01-15 19:10] LABS: BASO % 0.3 % (0.0-1.0); EOS # 0.1 10^3/uL (0.0-0.5); EOS % 1.6 % (0.0-3.0); HEMOGLOBIN 8.3 g/dl (13.5-17.5); LYMPH # 1.2 10^3/uL (1.5-5.0); LYMPH % 12.9 % (24.0-44.0); MEAN CORPUSCULAR HEMOGLOBIN 29.4 pg (27.0-33.0); MEAN CORPUSCULAR HGB CONC 33.2 g/dl (32.0-36.5); MEAN CORPUSCULAR VOLUME 88.7 fl (80.0-96.0); MONO # 1.7 10^3/uL (0.0-0.8); MONO % 18.7 % (0.0-5.0); NEUTROPHILS # 5.9 10^3/uL (1.5-8.5); NEUTROPHILS % 65.6 % (36.0-66.0); PLATELET COUNT, AUTOMATED 238 10^3/uL (150-450); RED BLOOD COUNT 2.82 10^6/uL (4.30-6.10); WHITE BLOOD COUNT 8.9 10^3/uL (4.0-10.0)
[2020-02-12 06:54] LABS: GLUCOSE, FASTING 140 MG/DL (70-100)
[2020-02-12 06:55] LABS: ALBUMIN 2.6 GM/DL (3.2-5.2); ALT/SGPT 23 U/L (12-78); BILIRUBIN,TOTAL 0.3 MG/DL (0.2-1.0); BLOOD UREA NITROGEN 22 MG/DL (7-18); CALCIUM LEVEL 8.7 MG/DL (8.8-10.2); CARBON DIOXIDE LEVEL 25 MEQ/L (21-32); CHLORIDE LEVEL 93 MEQ/L (98-107); CK-MB VALUE MASS < 1.0 NG/ML (<3.6); CPK CREATINE PHOSPHOKINASE 23 U/L (39-308); CREATININE FOR GFR 1.14 MG/DL (0.70-1.30); GLOMERULAR FILTRATION RATE > 60.0 (>35); MB/CK RELATIVE INDEX 4.35 (< OR =4); POTASSIUM SERUM 5.2 MEQ/L (3.5-5.1); SODIUM LEVEL 127 MEQ/L (136-145); TOTAL PROTEIN 5.7 GM/DL (6.4-8.2); TROPONIN I 0.03 NG/ML (< 0.10)
[2020-02-13 06:12] LABS: BLOOD UREA NITROGEN 21 MG/DL (7-18); CALCIUM LEVEL 8.4 MG/DL (8.8-10.2); CARBON DIOXIDE LEVEL 28 MEQ/L (21-32); CHLORIDE LEVEL 93 MEQ/L (98-107); CREATININE FOR GFR 1.14 MG/DL (0.70-1.30); GLOMERULAR FILTRATION RATE > 60.0 (>35); GLUCOSE, FASTING 115 MG/DL (70-100); MAGNESIUM LEVEL 2.2 MG/DL (1.8-2.4); SODIUM LEVEL 126 MEQ/L (136-145)
== END 2019-11-19 15:00 | disposition home or self-care (01) | DRG 556 ==
LOC: M ED 20:30 → M MS5PR 11-19 08:00
PROVIDERS: ADMIT Internal Medicine; ATTEND Internal Medicine
DX: M79.18 Myalgia, other site (principal); K21.9 Gastro-esophageal reflux disease without esophagitis; R07.9 Chest pain, unspecified; I25.10 Atherosclerotic heart disease of native coronary artery without angina pectoris; Z66 Do not resuscitate; Z79.899 Other long term (current) drug therapy; Z79.82 Long term (current) use of aspirin; I10 Essential (primary) hypertension; D64.9 Anemia, unspecified

== ENCOUNTER 2019-11-23 09:05 | Outpatient (CLI) | payer MEDICARE ==
[~2019-11-23 09:05] MED LIST changes: -MORPHINE 2 MG/ML 1ML VIAL (J2270) ONE; -ONDANSETRON 4MG/2ML VIAL ONE
[2019-12-17] MEDS ORDERED: AUGM875T28 PO (14:48)
== END 2019-11-23 11:45 | disposition home or self-care (01) ==
LOC: M INFU 09:05
PROVIDERS: ATTEND Specialist
DX: C90.00 Multiple myeloma not having achieved remission (principal)
CPT/HCPCS: 36430; J1642; P9016; P9040

== ENCOUNTER 2019-12-02 10:24 | Inpatient (IN) | payer MEDICARE ==
[~2019-12-02] VITALS: Ht 170.2 cm; Wt 79.5 kg
[2019-12-02] MEDS ORDERED: ASPI81TA86 PO (10:43)
[2019-12-02] MEDS ORDERED: CLOP75TA2 PO (10:43)
[2019-12-02 11:23] LABS: BASO # 0.1 10^3/uL (0.0-0.2); BASO % 0.4 % (0.0-1.0); EOS # 0.1 10^3/uL (0.0-0.5); EOS % 1.1 % (0.0-3.0); HEMATOCRIT 28.6 % (42.0-52.0); HEMOGLOBIN 9.4 g/dl (13.5-17.5); LYMPH # 1.4 10^3/uL (1.5-5.0); LYMPH % 12.2 % (24.0-44.0); MEAN CORPUSCULAR HEMOGLOBIN 29.7 pg (27.0-33.0); MEAN CORPUSCULAR HGB CONC 32.9 g/dl (32.0-36.5); MEAN CORPUSCULAR VOLUME 90.5 fl (80.0-96.0); MONO # 1.4 10^3/uL (0.0-0.8); MONO % 11.8 % (0.0-5.0); NEUTROPHILS # 8.5 10^3/uL (1.5-8.5); NEUTROPHILS % 73.1 % (36.0-66.0); PLATELET COUNT, AUTOMATED 344 10^3/uL (150-450); RED BLOOD COUNT 3.16 10^6/uL (4.30-6.10); WHITE BLOOD COUNT 11.6 10^3/uL (4.0-10.0)
[2019-12-02 11:42] LABS: ALBUMIN 2.3 GM/DL (3.2-5.2); ALT/SGPT 71 U/L (12-78); BILIRUBIN,DIRECT < 0.1 MG/DL (0.0-0.2); BILIRUBIN,TOTAL 0.3 MG/DL (0.2-1.0); BLOOD UREA NITROGEN 21 MG/DL (7-18); CALCIUM LEVEL 9.6 MG/DL (8.8-10.2); CARBON DIOXIDE LEVEL 26 MEQ/L (21-32); CHLORIDE LEVEL 96 MEQ/L (98-107); CREATININE FOR GFR 0.99 MG/DL (0.70-1.30); GLOMERULAR FILTRATION RATE > 60.0 (>35); GLUCOSE, FASTING 121 MG/DL (70-100); NT-PRO BNP 4101 PG/ML (<450); POTASSIUM SERUM 4.5 MEQ/L (3.5-5.1); SODIUM LEVEL 132 MEQ/L (136-145); TOTAL PROTEIN 5.7 GM/DL (6.4-8.2)
[2019-12-02] MEDS ORDERED: FUROSEMIDE 40MG/4ML VIAL (J1940) IV ONE (12:00)
--- NOTE | 2019-12-02 13:18 | REPVR ---
PROCEDURE INFORMATION: Exam: XR Chest, 1 View Exam date and time: 12/02/2019 12:41 PM Age: 84 years old Clinical indication: Cough and shortness of breath; Additional info: Dyspnea/cough TECHNIQUE: Imaging protocol: XR of the chest Views: 1 view. COMPARISON: CA CHEST, CHEST AP 55" VG 11/09/2019 1:03 PM FINDINGS: Tubes, catheters and devices: There is a right internal jugular Port-A-Cath with tip at the cavoatrial junction. Lungs: Multifocal dense consolidation in both lungs, more extensive in the left upper lobe and perihilar region as well as the right lower lung, almost entirely new since the prior study. Pleural space: Unremarkable. No pleural effusion. No pneumothorax. Heart/Mediastinum: Heart size is enlarged. Aorta is tortuous. There may be a hiatal hernia. Dense calcification overlying the mitral valve annulus. Bones/joints: Levoconvex thoracic scoliosis again seen. Multilevel vertebroplasty cement. Old fractures of the lower ribs bilaterally. IMPRESSION: 1. Multifocal dense consolidation in the lungs, most entirely new since the prior study, most likely multifocal pneumonia or aspiration. Electronically signed by: Neha Randolph On 12/02/2019 13:18:44 PM
[2019-12-02] MEDS ORDERED: MULT-4 PO (15:29)
--- NOTE | 2019-12-02 16:52 | HPEPDOC ---
General Date of Admission 12/02/19 Date of Service: Dec 02, 2019 Chief Complaint The patient is a 84-year-old male admitted with a reason for visit of SOB. Source: Patient, RN/MD History of Present Illness 84 year old male with PMH of IgA multiple myeloma started o new third line of therapy in september 2019, Aortic stenosis, mitral regurgitation, peripheral neuropathy, PAD, has been having increased SOB for the past week, getting easily winded and has been unable to walk to his bathroom which is about 40 ft from his bed so has been using a bedside commode for the past 5 days. He has been unable to sleep as has been unable to lay down in bed as his breathing then worsened . It was better when he was sitting in his chair. He also had an episode of left sided chest pain last week for which he was in the ED. He also reported that his appetite has been bad for the past 1 month and he has lost about 20 lbs. He went for his routine appointment at cancer center today and was noted to be hypoxic to 80% in room air so he was sent to the ED for evaluation. In the ED CXR showed multifocal dense consolidation and signs of fluid overload. He was admitted for Multifocal pneumonia and CHF exacerbation. Home Medications Scheduled Acyclovir (Acyclovir) 400 Mg Tablet, 400 MG PO BID Aspirin (Aspir 81) 81 Mg Tablet.dr, 81 MG PO DAILY, (Reported) Calcium Carbonate/Vitamin D3 (Calcium 500-Vit D3 600 Tablet) 1 Tab Tab, 1 TAB PO BID, (Reported) Cholecalciferol (Vitamin D3) (Vitamin D3) 1,000 Unit Tablet, 1,000 UNITS PO DAILY, (Reported) Clopidogrel Bisulfate (Clopidogrel) 75 Mg Tablet, 75 MG PO DAILY, (Reported) Cyanocobalamin (Vitamin B-12) (Vitamin B-12) 1,000 Mcg Tab, 1,000 MCG PO DAILY, (Reported) Montelukast Sodium (Montelukast Sodium) 10 Mg Tablet, 10 MG PO DAILY Take one tab PO on days 1,8,15 every 21 days for three cycles, then on day 1 only (take on daratumumab days) Multivit-Min/Folic/Vit K/Lycop (Men's Multivitamin Tablet) 1 Each Tablet, 1 TAB PO DAILY, (Reported) Pantoprazole Sodium (Pantoprazole Sodium) 40 Mg Tab, 40 MG PO DAILY, (Reported) Polyethylene Glycol 3350 (Miralax) 1 Pow Pow, 17 GRAM PO DAILY, (Reported) MIX INTO ORANGE JUICE Rosuvastatin Calcium (Crestor) 20 Mg Tab, 20 MG PO QHS, (Reported) Sulfamethoxazole/Trimethoprim (Sulfamethoxazole-Tmp Ds Tablet) 1 Each Tablet, 1 TAB PO 3XW, (Reported) MON, WED, FRI Scheduled PRN Ondansetron HCl (Ondansetron HCl) 8 Mg Tablet, 8 MG PO Q6H PRN for NAUSEA OR VOMITING Allergies Coded Allergies: lidocaine (Verified Allergy, Mild, SWEATY, FAINTING, 08/31/19) mepivacaine (Verified Allergy, Unknown, SWEATING, FAINTING, 08/31/19) tamsulosin (Verified Adverse Reaction, Intermediate, CONFUSION, 08/31/19) prednisone (Verified Adverse Reaction, Mild, CONFUSION, 08/31/19) donepezil (Verified Adverse Reaction, Unknown, HALLUCINATION, 08/31/19) erythromycin base (Verified Adverse Reaction, Unknown, HALLUCINATION, 08/31/19) simvastatin (Verified Adverse Reaction, Unknown, CONFUSION, 08/31/19) Past Medical History Medical History 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 Moderate to severeAortic stenosis, Moderate Mitral regurgitation Hypertension, Hyperlipidemia, Benign prostatic hypertrophy (BPH), Peptic ulcer disease, Iron deficiency anemia, Peripheral vascular disease, status post femoral popliteal bypass surgery, Bilateral fat containing inguinal hernias, Skin melanomas status post excision, Gastrointestinal (GI) bleed with diverticulosis and gastric ulcerations. History of Pulmonary Embolism in past not anticoagulated due to GIBs Family History Significant Family History: No pertinent family hx Mother at age 37 from brain tumor Father had stroke at age 55, at age 67 Eldest daughter with Brain tumor resident of [facility] Maternal cousin with brain tumor. Social History * Smoker: Denies Alcohol: Denies Drugs: denies A-FIB/CHADSVASC A-FIB History Current/History of A-Fib/PAF?: No Review of Systems Constitutional: Reports: Weakness, Fatigue, Weight Loss; Denies: Chills, Fever, Night Sweats Eyes: Denies: Pain, Vision change ENT: Denies: Head Aches, Ear Pain, Dysphagia Skin: Denies: Rash, Lesions, Breakdown Pulmonary: Reports: Dyspnea Cardiovascular: Reports: Palpitations, Orthopnea Gastrointestinal: Denies: Nausea, Vomiting, Abdominal Pain, Diarrhea Genitourinary: Denies: Dysuria, Frequency, Incontinence, Retention Musculoskeletal: Reports: Neck Pain Neurological: Reports: Weakness, Numbness Physical Examination General Exam: Positive: Alert, Cooperative, No Acute Distress, Other (convertional dyspnea present.) Eye Exam: Positive: PERRLA, Conjunctiva & lids normal, EOMI; Negative: Sclera icteric ENT Exam: Positive: Atraumatic, Mucous membr. moist/pink, Pharynx Normal Neck Exam: Positive: Supple, JVD; Negative: thyromegaly Chest Exam: Positive: Diminished, Other ( crackles at he bases) Heart Exam: Positive: Tachycardic, Regular Rhythm, Normal S1, Normal S2, Murmurs (systolic murmur in apex and at [place] aortic area.); Negative: Rubs Telemetry: Positive: No significant arrhythmia Abdomen Exam: Positive: Normal bowel sounds, Soft; Negative: Tenderness, Hepatospenomegaly Extremity Exam: Negative: Clubbing, Cyanosis, Edema Neuro Exam: Positive: Normal Speech, Strength at 5/5 X4 ext, Normal Tone Psych Exam: Positive: Memory Intact, Oriented x 3 Vital Signs Vital Signs Date Time Temp Pulse Resp B/P (MAP) Pulse Ox O2 Delivery O2 Flow Rate FiO2 12/02/19 14:06 97.8 97 22 119/58 (78) 92 Nasal Cannula 2.0 Laboratory Data Labs 24H Laboratory Tests 2 12/02/19 10:45: Immature Granulocyte % (Auto) 1.4, Neutrophils (%) (Auto) 73.1H, Lymphocytes (%) (Auto) 12.2L, Monocytes (%) (Auto) 11.8H, Eosinophils (%) (Auto) 1.1, Basophils (%) (Auto) 0.4, Neutrophils # (Auto) 8.5, Lymphocytes # (Auto) 1.4L, Monocytes # (Auto) 1.4H, Eosinophils # (Auto) 0.1, Basophils # (Auto) 0.1, Nucleated Red Blood Cells % (auto) 0.3H, Anion Gap 10, Glomerular Filtration Rate > 60.0, Calcium Level 9.6, Total Bilirubin 0.3, Direct Bilirubin < 0.1, Aspartate Amino Transf (AST/SGOT) 77H, Alanine Aminotransferase (ALT/SGPT) 71, Alkaline Phosphatase 129H, HP-Ejn-I-Type Natriuretic Peptide 4101H, Total Protein 5.7L, Albumin 2.3L, Albumin/Globulin Ratio 0.7 CBC/BMP Laboratory Tests 12/02/19 10:45 Microbiology Microbiology 12/02/19 Respiratory Virus Panel (PCR) (SUMEET) - Final, Complete Assessment/Plan 84 adriane old male with PMH of IgA multiple myeloma started on new third line of therapy in september 2019, Aortic stenosis, mitral regurgitation, peripheral neuropathy, PAD, has been having increased SOB for [place] past week, getting easily winded and has been unable to walk to his bathroom which is about 40 ft from his bed so has been using a bedside commode for the past 5 days. He has been unable to sleep as has been unable to lay down in bed as his breathing then worsened . It was better when he was sitting in his chair. He also had an episode of left sided chest pain last week for which he was in the ED. He also reported that his appetite has been bad for the past 1 month and he has lost about 20 lbs. He went for his routine appointment at cancer center today and was noted to be hypoxic to 80% in room air so he was sent to the ED for evaluation. In the ED CXR showed multifocal dense consolidation and signs of fluid overload. He was admitted for Multifocal pneumonia and CHF exacerbation. Multifocal pneumonia blood cultures sputum culture zosyn Acute respiratory failure with hypoxia due to pneumonia and CHF oxygen supplementation Diastolic CHF exacerbation will give IV lasix. Moderate to severe mitral regurgitation, mild aortic stenosis continue lasix IgA [place] multiple myeloma with chronic anemia HH stable. on third line chemotherapy continue acyclovir and bactrim PAD s/p fem-pop bypass continue ASA and Plavix GERD PPI HLD on statin Protein calorie Malnutrition bitemporal wasting and loss of 20 ib weight loss int eh past 1 month. Plan / VTE VTE Prophylaxis Ordered?: Yes MAURICIO DAVIES MD Dec 02, 2019 15:26
[2019-12-02 17:50] VITALS: BP 154/69
[2019-12-02] MEDS: FUROSEMIDE 40MG/4ML VIAL (J1940) IV SCH (18:05)
[2019-12-02] MEDS: PIPERACILLIN/TAZOBACTAM SOD 3.375 GM in D5W MINI-BAG PLUS 50 ML IV SCH (18:06)
[2019-12-02] MEDS ORDERED: SLF 3 ML SYR IV PRN (19:00)
[2019-12-02] MEDS: SLF 3 ML SYR IV SCH (21:32)
[2019-12-02] MEDS: ROSUVASTATIN 10 MG TAB (CRESTOR) PO SCH (21:32)
[2019-12-02] MEDS: ACYCLOVIR 200 MG CAPSULE PO SCH (21:32)
[2019-12-02 22:00] VITALS: BP 126/66
[2019-12-03] VITALS (7 sets, daily range): BP systolic 103–141; BP diastolic 53–76
[2019-12-03] MEDS: PIPERACILLIN/TAZOBACTAM SOD 3.375 GM in D5W MINI-BAG PLUS 50 ML IV SCH ×4 (00:38→18:00)
[2019-12-03] MEDS: SLF 3 ML SYR IV SCH ×3 (06:22→20:06)
[2019-12-03 06:30] LABS: BASO # 0.1 10^3/uL (0.0-0.2); BASO % 0.5 % (0.0-1.0); EOS # 0.2 10^3/uL (0.0-0.5); EOS % 1.6 % (0.0-3.0); HEMATOCRIT 25.5 % (42.0-52.0); HEMOGLOBIN 8.3 g/dl (13.5-17.5); LYMPH # 1.3 10^3/uL (1.5-5.0); LYMPH % 12.1 % (24.0-44.0); MEAN CORPUSCULAR HGB CONC 32.5 g/dl (32.0-36.5); MEAN CORPUSCULAR VOLUME 89.2 fl (80.0-96.0); MONO # 1.4 10^3/uL (0.0-0.8); MONO % 13.1 % (0.0-5.0); NEUTROPHILS # 7.7 10^3/uL (1.5-8.5); PLATELET COUNT, AUTOMATED 292 10^3/uL (150-450); RED BLOOD COUNT 2.86 10^6/uL (4.30-6.10); WHITE BLOOD COUNT 10.7 10^3/uL (4.0-10.0)
[2019-12-03 06:56] LABS: BLOOD UREA NITROGEN 21 MG/DL (7-18); CARBON DIOXIDE LEVEL 29 MEQ/L (21-32); CHLORIDE LEVEL 95 MEQ/L (98-107); CREATININE FOR GFR 1.13 MG/DL (0.70-1.30); GLOMERULAR FILTRATION RATE > 60.0 (>35); GLUCOSE, FASTING 115 MG/DL (70-100); POTASSIUM SERUM 4.1 MEQ/L (3.5-5.1); SODIUM LEVEL 133 MEQ/L (136-145)
[2019-12-03] MEDS: FUROSEMIDE 40MG/4ML VIAL (J1940) IV SCH ×2 (08:02→17:00)
[2019-12-03] MEDS: ACYCLOVIR 200 MG CAPSULE PO SCH ×2 (09:29→20:06)
[2019-12-03] MEDS: ASPIRIN 81 MG ENTERIC TAB PO SCH (09:29)
[2019-12-03] MEDS: PANTOPRAZOLE 40MG TAB (PROTONIX) PO SCH (09:29)
[2019-12-03] MEDS: ENOXAPARIN 40MG/0.4ML SYRINGE (J1650 PER 10MG) SC SCH (09:29)
[2019-12-03] MEDS: BACTRIM 160MG/800MG DS TAB PO SCH (09:29)
[2019-12-03] MEDS: CLOPIDOGREL 75 MG TAB PO SCH (09:29)
--- NOTE | 2019-12-03 11:29 | IPNPDOC ---
Text Note Date of Service The patient was seen on 12/03/19. NOTE SUBJECTIVE: Feels about the same as yesterday. Still having SOB. Needing oxygen. Sitting up in bed and having breakfast. PHYSICAL EXAM: VITALS: As below General Exam: Positive: Alert, Cooperative, No Acute Distress, Other (convertional dyspnea present.) Eye Exam: Positive: PERRLA, Conjunctiva & lids normal, EOMI; Negative: Sclera icteric ENT Exam: Positive: Atraumatic, Mucous membr. moist/pink, Pharynx Normal Neck Exam: Positive: Supple, JVD; Negative: thyromegaly Chest Exam: Positive: Diminished, Other ( crackles at he bases) Heart Exam: Positive: Tachycardic, Regular Rhythm, Normal S1, Normal S2, Murmurs (systolic murmur in apex and at [facility] aortic area.); Negative: Rubs Telemetry: Positive: No significant arrhythmia Abdomen Exam: Positive: Normal bowel sounds, Soft; Negative: Tenderness, Hepatosplenomegaly Extremity Exam: Negative: Clubbing, Cyanosis, Edema Neuro Exam: Positive: Normal Speech, Strength at 5/5 X4 ext, Normal Tone Psych Exam: Positive: Memory Intact, Oriented x 3 Labs and Radiology: reviewed Assessment and Plan: 84 adriane old male with PMH of IgA multiple myeloma started on new third line of therapy in september 2019, Aortic stenosis, mitral regurgitation, peripheral neuropathy, PAD, has been having increased SOB for [place] past week, getting easily winded and has been unable to walk to his bathroom which is about 40 ft from his bed so has been using a bedside commode for the past 5 days. He has been unable to sleep as has been unable to lay down in bed as his breathing then worsened . It was better when he was sitting in his chair. He also had an episode of left sided chest pain last week for which he was in the ED. He also reported that his appetite has been bad for the past 1 month and he has lost about 20 lbs. He went for his routine appointment at cancer center today and was noted to be hypoxic to 80% in room air so he was sent to the ED for evaluation. In the ED CXR showed multifocal dense consolidation and signs of fluid overload. He was admitted for Multifocal pneumonia and CHF exacerbation. Multifocal pneumonia blood cultures sent sputum culture not sent yet no sputum yet zosyn Pulmonary consult. Acute respiratory failure with hypoxia due to pneumonia and CHF oxygen supplementation Diastolic CHF exacerbation will give IV lasix as needed. Moderate to severe mitral regurgitation, mild aortic stenosis continue lasix IgA [place] multiple myeloma with chronic anemia on third line chemotherapy continue acyclovir and bactrim PRBC transfusion if hb< 8.0 PAD s/p fem-pop bypass continue ASA and Plavix GERD PPI HLD on statin Protein calorie Malnutrition bitemporal wasting and loss of 10 lb weight loss in the past 1 month. VS,Fishbone, I+O VS, Fishbone, I+O Laboratory Tests 12/03/19 06:12 12/03/19 06:13 Vital Signs Date Time Temp Pulse Resp B/P (MAP) Pulse Ox O2 Delivery O2 Flow Rate FiO2 12/03/19 08:00 2.0 12/03/19 08:00 97.4 88 18 123/62 (82) 95 Nasal Cannula I&O- Last 24 Hours up to 6 AM 12/03/19 06:00 Intake Total 310 ml Output Total 2050 ml Balance -1740 ml MAURICIO DAVIES MD Dec 03, 2019 11:29
[2019-12-03] MEDS: ROSUVASTATIN 10 MG TAB (CRESTOR) PO SCH (20:06)
[2019-12-04] VITALS (7 sets, daily range): BP systolic 96–138; BP diastolic 60–83
[2019-12-04] MEDS: PIPERACILLIN/TAZOBACTAM SOD 3.375 GM in D5W MINI-BAG PLUS 50 ML IV SCH ×2 (00:27→05:52)
[2019-12-04] MEDS ORDERED: ACETAMINOPHEN TAB 650MG DOSE (2X325MG) PO ONE (01:15)
[2019-12-04 05:50] LABS: BASO # 0.1 10^3/uL (0.0-0.2); BASO % 0.5 % (0.0-1.0); EOS # 0.2 10^3/uL (0.0-0.5); EOS % 1.7 % (0.0-3.0); HEMOGLOBIN 8.3 g/dl (13.5-17.5); LYMPH # 1.7 10^3/uL (1.5-5.0); LYMPH % 16.9 % (24.0-44.0); MEAN CORPUSCULAR HEMOGLOBIN 29.4 pg (27.0-33.0); MEAN CORPUSCULAR HGB CONC 33.2 g/dl (32.0-36.5); MEAN CORPUSCULAR VOLUME 88.7 fl (80.0-96.0); MONO # 1.3 10^3/uL (0.0-0.8); MONO % 13.4 % (0.0-5.0); NEUTROPHILS # 6.5 10^3/uL (1.5-8.5); NEUTROPHILS % 66.7 % (36.0-66.0); PLATELET COUNT, AUTOMATED 274 10^3/uL (150-450); RED BLOOD COUNT 2.82 10^6/uL (4.30-6.10); WHITE BLOOD COUNT 9.8 10^3/uL (4.0-10.0)
[2019-12-04] MEDS: SLF 3 ML SYR IV SCH ×3 (05:52→20:12)
[2019-12-04 06:13] LABS: CALCIUM LEVEL 8.9 MG/DL (8.8-10.2); CREATININE FOR GFR 1.35 MG/DL (0.70-1.30); GLOMERULAR FILTRATION RATE 53.3 (>35); POTASSIUM SERUM 3.5 MEQ/L (3.5-5.1)
[2019-12-04] MEDS: CLOPIDOGREL 75 MG TAB PO SCH (09:45)
[2019-12-04] MEDS: ASPIRIN 81 MG ENTERIC TAB PO SCH (09:45)
[2019-12-04] MEDS: PANTOPRAZOLE 40MG TAB (PROTONIX) PO SCH (09:45)
[2019-12-04] MEDS: ENOXAPARIN 40MG/0.4ML SYRINGE (J1650 PER 10MG) SC SCH (09:46)
[2019-12-04] MEDS: ACYCLOVIR 200 MG CAPSULE PO SCH ×2 (09:46→20:11)
--- NOTE | 2019-12-04 11:13 | IPNPDOC ---
Text Note Date of Service The patient was seen on 12/04/19. NOTE SUBJECTIVE: Feels about the same as yesterday. Still having SOB. Needing oxygen. Very weak and says is getting weaker. Does not want to continue chemo any more. will discuss with oncology patient's wishes. Discussed with him about option for Hospice. He does not want hospice as he says he did not have a good experience with them when his was sick. PHYSICAL EXAM: VITALS: As below General Exam: Positive: Alert, Cooperative, No Acute Distress, Other (conversional dyspnea present.) Eye Exam: Positive: PERRLA, Conjunctiva & lids normal, EOMI; Negative: Sclera icteric ENT Exam: Positive: Atraumatic, Mucous membr. moist/pink, Pharynx Normal Neck Exam: Positive: Supple, JVD; Negative: thyromegaly Chest Exam: Positive: Diminished, Other ( crackles at he bases) Heart Exam: Positive: Tachycardic, Regular Rhythm, Normal S1, Normal S2, Murmurs (systolic murmur in apex and at [place] aortic area.); Negative: Rubs Telemetry: Positive: No significant arrhythmia Abdomen Exam: Positive: Normal bowel sounds, Soft; Negative: Tenderness, Hepatosplenomegaly Extremity Exam: Negative: Clubbing, Cyanosis, Edema Neuro Exam: Positive: Normal Speech, Strength at 5/5 X4 ext, Normal Tone Psych Exam: Positive: Memory Intact, Oriented x 3 Labs and Radiology: reviewed Assessment and Plan: 84 year old male with PMH of IgA multiple myeloma started on new third line of therapy in september 2019, Aortic stenosis, mitral regurgitation, peripheral neuropathy, PAD, has been having increased SOB for the past week, getting easily winded and has been unable to walk to his bathroom which is about 40 ft from his bed so has been using a bedside commode for the past 5 days. He has been unable to sleep as has been unable to lay down in bed as his breathing then worsened . It was better when he was sitting in his chair. He also had an episode of left sided chest pain last week for which he was in the ED. He also reported that his appetite has been bad for the past 1 month and he has lost about 20 lbs. He went for his routine appointment at cancer center today and was noted to be hypoxic to 80% in room air so he was sent to the ED for evaluation. In the ED CXR showed multifocal dense consolidation and some signs of fluid overload. He was admitted for Multifocal pneumonia and CHF exacerbation. ? Multifocal pneumonia Vs fungal infection vs BOOP blood cultures sent , CRP elevated, Procalcitonin pending sputum culture not sent yet as no sputum yet Spoke with Dr Chavis and Dr Santiago will cover with fluconazole , change zosyn to augmentin. will start methyl prednisone to cover for BOOP which is another possibility. Acute respiratory failure with hypoxia due to pneumonia and CHF oxygen supplementation will assess for home oxygen requirement. Diastolic CHF exacerbation resolved after IV lasix now euvolemic. Moderate to severe mitral regurgitation, mild aortic stenosis continue lasix prn IgA [place] multiple myeloma with chronic anemia on third line chemotherapy continue acyclovir and bactrim PRBC transfusion if hb< 8.0 PAD s/p fem-pop bypass continue ASA and Plavix GERD PPI HLD on statin Protein calorie Malnutrition bitemporal wasting and loss of 10 lb weight loss in the past 1 month. VS,Fishbone, I+O VS, Fishbone, I+O Laboratory Tests 12/04/19 05:20 Vital Signs Date Time Temp Pulse Resp B/P (MAP) Pulse Ox O2 Delivery O2 Flow Rate FiO2 12/04/19 08:00 97.2 100 20 126/73 (90) 91 Nasal Cannula 2.0 I&O- Last 24 Hours up to 6 AM 12/04/19 06:00 Intake Total 1394 ml Output Total 900 ml Balance 494 ml MAURICIO DAVIES MD Dec 04, 2019 11:13
[2019-12-04] MEDS: methylPREDNISolone 125MG 2ML VIAL IV SCH ×2 (12:05→20:10)
[2019-12-04] MEDS: ACETAMINOPHEN TAB 650MG DOSE (2X325MG) PO PRN ×2 (12:05→20:12)
[2019-12-04] MEDS: FLUCONAZOLE 100 MG TAB PO SCH (12:06)
[2019-12-04] MEDS ORDERED: ACETAMINOPHEN TAB 650MG DOSE (2X325MG) PO PRN (12:15)
[2019-12-04] MEDS: AUGMENTIN 875 MG TAB PO SCH (20:10)
[2019-12-04] MEDS: ROSUVASTATIN 10 MG TAB (CRESTOR) PO SCH (20:11)
[2019-12-05] VITALS (14 sets, daily range): BP systolic 101–144; BP diastolic 61–93
[2019-12-05] MEDS: SLF 3 ML SYR IV SCH ×3 (04:23→20:09)
[2019-12-05] MEDS: methylPREDNISolone 125MG 2ML VIAL IV SCH ×3 (04:23→20:08)
[2019-12-05 06:18] LABS: BASO % 0.1 % (0.0-1.0); HEMATOCRIT 23.5 % (42.0-52.0); HEMOGLOBIN 7.7 g/dl (13.5-17.5); LYMPH # 0.9 10^3/uL (1.5-5.0); LYMPH % 12.1 % (24.0-44.0); MEAN CORPUSCULAR HEMOGLOBIN 28.9 pg (27.0-33.0); MEAN CORPUSCULAR HGB CONC 32.8 g/dl (32.0-36.5); MEAN CORPUSCULAR VOLUME 88.3 fl (80.0-96.0); MONO # 0.2 10^3/uL (0.0-0.8); MONO % 3.1 % (0.0-5.0); NEUTROPHILS # 6.4 10^3/uL (1.5-8.5); NEUTROPHILS % 82.8 % (36.0-66.0); PLATELET COUNT, AUTOMATED 304 10^3/uL (150-450); RED BLOOD COUNT 2.66 10^6/uL (4.30-6.10); WHITE BLOOD COUNT 7.8 10^3/uL (4.0-10.0)
[2019-12-05 06:38] LABS: BLOOD UREA NITROGEN 24 MG/DL (7-18); CALCIUM LEVEL 8.4 MG/DL (8.8-10.2); CARBON DIOXIDE LEVEL 30 MEQ/L (21-32); CHLORIDE LEVEL 94 MEQ/L (98-107); CREATININE FOR GFR 1.06 MG/DL (0.70-1.30); GLOMERULAR FILTRATION RATE > 60.0 (>35); GLUCOSE, FASTING 158 MG/DL (70-100); SODIUM LEVEL 131 MEQ/L (136-145)
[2019-12-05] MEDS: CLOPIDOGREL 75 MG TAB PO SCH (09:01)
[2019-12-05] MEDS: ACYCLOVIR 200 MG CAPSULE PO SCH ×2 (09:01→20:09)
[2019-12-05] MEDS: ASPIRIN 81 MG ENTERIC TAB PO SCH (09:01)
[2019-12-05] MEDS: FLUCONAZOLE 100 MG TAB PO SCH (09:01)
[2019-12-05] MEDS: PANTOPRAZOLE 40MG TAB (PROTONIX) PO SCH (09:01)
[2019-12-05] MEDS: AUGMENTIN 875 MG TAB PO SCH ×2 (09:01→20:08)
[2019-12-05] MEDS: ENOXAPARIN 40MG/0.4ML SYRINGE (J1650 PER 10MG) SC SCH (09:02)
--- NOTE | 2019-12-05 09:02 | IPNPDOC ---
Text Note Date of Service The patient was seen on 12/05/19. NOTE SUBJECTIVE: Slightly better than yesterday. Very weak and says is getting wea ker. Does not want to continue chemo any more. Has refused Hospice. Had an episode of confusion last night but was easily redirected. He does mention that before he had a reaction to steroid before when he became confused and aggressive. Will have to monitor for any steroid psychosis. Breathing remains the same. HH lower today will need prbc transfusion. PHYSICAL EXAM: VITALS: As below General Exam: Positive: Alert, Cooperative, No Acute Distress, Other (conversional dyspnea present.) Eye Exam: Positive: PERRLA, Conjunctiva & lids normal, EOMI; Negative: Sclera icteric ENT Exam: Positive: Atraumatic, Mucous membr. moist/pink, Pharynx Normal Neck Exam: Positive: Supple, JVD; Negative: thyromegaly Chest Exam: Positive: Diminished, Other ( crackles at he bases) Heart Exam: Positive: Tachycardic, Regular Rhythm, Normal S1, Normal S2, Murmurs (systolic murmur in apex and at [place] aortic area.); Negative: Rubs Telemetry: Positive: No significant arrhythmia Abdomen Exam: Positive: Normal bowel sounds, Soft; Negative: Tenderness, Hepatosplenomegaly Extremity Exam: Negative: Clubbing, Cyanosis, Edema Neuro Exam: Positive: Normal Speech, Strength at 5/5 X4 ext, Normal Tone Psych Exam: Positive: Memory Intact, Oriented x 3 Labs and Radiology: reviewed Assessment and Plan: 84 year old male with PMH of IgA multiple myeloma started on new third line of therapy in september 2019, Aortic stenosis, mitral regurgitation, peripheral neuropathy, PAD, has been having increased SOB for the past week, getting easily winded and has been unable to walk to his bathroom which is about 40 ft from his bed so has been using a bedside commode for the past 5 days. He has been unable to sleep as has been unable to lay down in bed as his breathing then worsened . It was better when he was sitting in his chair. He also had an episode of left sided chest pain last week for which he was in the ED. He also reported that his appetite has been bad for the past 1 month and he has lost about 20 lbs. He went for his routine appointment at cancer center today and was noted to be hypoxic to 80% in room air so he was sent to the ED for evaluation. In the ED CXR showed multifocal dense consolidation and some signs of fluid overload. He was admitted for Multifocal pneumonia and CHF exace rbation. ? Multifocal pneumonia Vs fungal infection vs BOOP/[employer] SUPERVISOR blood cultures sent , CRP elevated, Procalcitonin pending sputum culture not sent yet as no sputum yet Spoke with Dr Chavis and Dr Santiago will cover with fluconazole , change zosyn to augmentin. will start methyl prednisone to cover for BOOP which is another possibility. Acute respiratory failure with hypoxia due to pneumonia/ BOOP and CHF oxygen supplementation will assess for home oxygen requirement. Diastolic CHF exacerbation resolved after IV lasix now euvolemic. Moderate to severe mitral regurgitation, mild aortic stenosis continue lasix prn IgA [place] multiple myeloma with chronic anemia on third line chemotherapy continue acyclovir and bactrim PRBC transfusion PAD s/p fem-pop bypass continue ASA and Plavix GERD PPI HLD on statin Protein calorie Malnutrition bitemporal wasting and loss of 10 lb weight loss in the past 1 month. Disposition: Home with services VS,Nena, I+O VSNena I+O Laboratory Tests 12/05/19 05:41 Vital Signs Date Time Temp Pulse Resp B/P (MAP) Pulse Ox O2 Delivery O2 Flow Rate FiO2 12/05/19 08:03 97.9 86 20 122/80 (94) 94 Nasal Cannula 2.0 I&O- Last 24 Hours up to 6 AM 12/05/19 05:59 Intake Total 904 ml Output Total 775 ml Balance 129 ml MAURICIO DAVIES MD Dec 05, 2019 09:01
[2019-12-05] MEDS ORDERED: FUROSEMIDE 40MG/4ML VIAL (J1940) IV ONE (11:00)
[2019-12-05] MEDS: ACETAMINOPHEN TAB 650MG DOSE (2X325MG) PO PRN (16:27)
[2019-12-05] MEDS: ROSUVASTATIN 10 MG TAB (CRESTOR) PO SCH (20:09)
[2019-12-06] MEDS: methylPREDNISolone 125MG 2ML VIAL IV SCH ×2 (04:56→13:31)
[2019-12-06] MEDS: SLF 3 ML SYR IV SCH ×2 (04:56→13:31)
[2019-12-06 06:00] VITALS: BP 132/81
[2019-12-06 06:08] LABS: HEMATOCRIT 27.9 % (42.0-52.0); HEMOGLOBIN 9.2 g/dl (13.5-17.5); LYMPH # 0.7 10^3/uL (1.5-5.0); LYMPH % 8.1 % (24.0-44.0); MEAN CORPUSCULAR HEMOGLOBIN 28.7 pg (27.0-33.0); MEAN CORPUSCULAR VOLUME 86.9 fl (80.0-96.0); MONO # 0.4 10^3/uL (0.0-0.8); MONO % 4.4 % (0.0-5.0); NEUTROPHILS # 7.8 10^3/uL (1.5-8.5); NEUTROPHILS % 85.9 % (36.0-66.0); PLATELET COUNT, AUTOMATED 290 10^3/uL (150-450); RED BLOOD COUNT 3.21 10^6/uL (4.30-6.10); WHITE BLOOD COUNT 9.1 10^3/uL (4.0-10.0)
[2019-12-06 06:23] LABS: BLOOD UREA NITROGEN 38 MG/DL (7-18); CALCIUM LEVEL 8.3 MG/DL (8.8-10.2); CARBON DIOXIDE LEVEL 27 MEQ/L (21-32); CHLORIDE LEVEL 98 MEQ/L (98-107); CREATININE FOR GFR 0.99 MG/DL (0.70-1.30); GLOMERULAR FILTRATION RATE > 60.0 (>35); GLUCOSE, FASTING 150 MG/DL (70-100); POTASSIUM SERUM 3.9 MEQ/L (3.5-5.1); SODIUM LEVEL 135 MEQ/L (136-145)
[2019-12-06] MEDS: ASPIRIN 81 MG ENTERIC TAB PO SCH (09:57)
[2019-12-06] MEDS: ACYCLOVIR 200 MG CAPSULE PO SCH (09:57)
[2019-12-06] MEDS: CLOPIDOGREL 75 MG TAB PO SCH (09:57)
[2019-12-06] MEDS: ENOXAPARIN 40MG/0.4ML SYRINGE (J1650 PER 10MG) SC SCH (09:58)
[2019-12-06] MEDS: PANTOPRAZOLE 40MG TAB (PROTONIX) PO SCH (09:58)
[2019-12-06] MEDS: BACTRIM 160MG/800MG DS TAB PO SCH (09:58)
[2019-12-06] MEDS: AUGMENTIN 875 MG TAB PO SCH (09:58)
[2019-12-06] MEDS: FLUCONAZOLE 100 MG TAB PO SCH (09:58)
[2019-12-06] MEDS ORDERED: FLUC100T PO (12:53)
[2019-12-06] MEDS ORDERED: PRED20TA PO (12:53)
[2019-12-06] MEDS ORDERED: AMOX875T2 PO (12:53)
[2019-12-06] MEDS ORDERED: PRED10TA2 PO (12:53)
[2019-12-06] MEDS ORDERED: LASI40TA9 PO (16:35)
--- NOTE | 2019-12-14 23:44 | DS.PDOC ---
Discharge Summary General Date of Admission Dec 02, 2019 at 15:57 Date of Discharge 12/06/19 Discharge Summary PROCEDURES PERFORMED DURING STAY: [None]. DISCHARGE DIAGNOSES: Multifocal pneumonia Vs fungal infection Vs BOOP/ TELE TECH Acute Respiratory Failure with hypoxia. Diastolic CHF exacerbation Valvular heart disease, Moderate to severe mitral regurgitation, mild aortic stenosis Protein Calorie Malnutrition IgA [place] multiple myeloma Peripheral neuropathy PAD GERD HLD COMPLICATIONS/CHIEF COMPLAINT: Acute Exacerbation Of Chf,Acute Respiratory Failur. HOSPITAL COURSE: 84 year old male with PMH of IgA multiple myeloma started on new third line of therapy in september 2019, Aortic stenosis, mitral regurgitation, peripheral neuropathy, PAD, has been having increased SOB for the past week, getting easily winded and has been unable to walk to his bathroom which is about 40 ft from his bed so has been using a bedside commode for the past 5 days. He has been unable to sleep as has been unable to lay down in bed as his breathing then worsened . It was better when he was sitting in his chair. He also had an episode of left sided chest pain last week for which he was in the ED. He also reported that his appetite has been bad for the past 1 month and he has lost about 20 lbs. He went for his routine appointment at cancer center today and was noted to be hypoxic to 80% in room air so he was sent to the ED for evaluation. In the ED CXR showed multifocal dense consolidation and some signs of fluid overload. He was admitted for Multifocal pneumonia and CHF exacer bation. ? Multifocal pneumonia Vs fungal infection vs BOOP/TELE TECH blood cultures sent , CRP elevated, Procalcitonin very high sputum culture fungal Spoke with Dr Chavis and Dr Santiago will cover with fluconazole and augmentin. Recieved 2 days of Zosyn in hospital. 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 Acute respiratory failure with hypoxia due to pneumonia/ BOOP and CHF Discharge with Home oxygen. Diastolic CHF exacerbation resolved after IV lasix now euvolemic. Moderate to severe mitral regurgitation, mild aortic stenosis continue lasix prn IgA [place] multiple myeloma with chronic anemia on third line chemotherapy continue acyclovir and bactrim PRBC transfusion PAD s/p fem-pop bypass continue ASA and Plavix GERD PPI HLD on statin Protein calorie Malnutrition bitemporal wasting and loss of 10 lb weight loss in the past 1 month. DISCHARGE MEDICATIONS: Please see below. ALLERGIES: Please see below. PHYSICAL EXAMINATION ON DISCHARGE: VITAL SIGNS: Please see below. General Exam: Positive: Alert, Cooperative, No Acute Distress, Other (conversional dyspnea present.) Eye Exam: Positive: PERRLA, Conjunctiva & lids normal, EOMI; Negative: Sclera icteric ENT Exam: Positive: Atraumatic, Mucous membr. moist/pink, Pharynx Normal Neck Exam: Positive: Supple, JVD; Negative: thyromegaly Chest Exam: Positive: Diminished, Other ( crackles at he bases) Heart Exam: Positive: Tachycardic, Regular Rhythm, Normal S1, Normal S2, Murmurs (systolic murmur in apex and at [place] aortic area.); Negative: Rubs Telemetry: Positive: No significant arrhythmia Abdomen Exam: Positive: Normal bowel sounds, Soft; Negative: Tenderness, Hepatosplenomegaly Extremity Exam: Negative: Clubbing, Cyanosis, Edema Neuro Exam: Positive: Normal Speech, Strength at 5/5 X4 ext, Normal Tone Psych Exam: Positive: Memory Intact, Oriented x 3 LABORATORY DATA: Please see below. PROGNOSIS: Guarded ACTIVITY: [As tolerated]. DIET: As tolerated DISPOSITION: 01 Home, Self-Care. DISCHARGE INSTRUCTIONS: Follow up Dr Santiago in 1 week Follow up PMD in 1 week DISCHARGE CONDITION: [Stable]. TIME SPENT ON DISCHARGE: 35 minutes. Vital Signs/I&Os Vital Signs Label Value Date Time Patient Temperature 97.5 degrees F 12/06/19599 Temperature Source Oral 12/06/19599 Pulse 99 12/06/19599 Respiratory Rate 18 bpm 12/06/19599 Blood Pressure Assessment 132/81 (98) 12/06/19599 Bedside Pulse Oximetry 95 % 12/06/19599 Item Value Date Time Oxygen Flow Rate 2.0 L/min 12/06/19599 Laboratory Data CBC/BMP Item Value Date Time White Blood Count 9.1 10^3/uL 12/06/19538 Red Blood Count 3.21 10^6/uL L 12/06/19538 Hemoglobin 9.2 g/dl L 12/06/19538 Hematocrit 27.9 % L 12/06/19538 Mean Corpuscular Volume 86.9 fl 12/06/19538 Mean Corpuscular Hemoglobin 28.7 pg 12/06/19538 Mean Corpuscular Hemoglobin Concent 33.0 g/dl 12/06/19538 Red Cell Distribution Width 16.5 % H 12/06/19 05 Platelet Count 290 10^3/uL 12/06/19 0539 Neutrophils (%) (Auto) 85.9 % H 12/06/19 05 Lymphocytes (%) (Auto) 8.1 % L 12/06/19 05 Sodium Level 135 MEQ/L L 12/06/19538 Potassium Level 3.9 MEQ/L 12/06/19538 Chloride Level 98 MEQ/L 12/06/19 05 Carbon Dioxide Level 27 MEQ/L 12/06/19538 Anion Gap 10 MEQ/L 12/06/19538 Blood Urea Nitrogen 38 MG/DL H # 12/06/19538 Creatinine 0.99 MG/DL 12/06/19538 Glomerular Filtration Rate > 60.0 12/06/19 05 Fasting Glucose 150 MG/DL H 12/06/19538 Calcium Level 8.3 MG/DL L 12/06/19538 Procalcitonin 175.63 NG/ML 12/03/19612 C-Reactive Protein, Quantitative 14.50 MG/DL H 12/03/19612 Microbiology Microbiology 12/05/19 Gram Stain - Final, Complete 12/05/19 Sputum Culture - Final, Complete Yeast Like Organism Discharge Medications Scheduled Acyclovir (Acyclovir) 400 Mg Tablet, 400 MG PO BID Amoxicillin/Potassium Clav (Amox-Clav 875-125 mg Tablet) 1 Each Tablet, 875 MG PO BID Aspirin (Aspir 81) 81 Mg Tablet.dr, 81 MG PO DAILY, (Reported) Calcium Carbonate/Vitamin D3 (Calcium 500-Vit D3 600 Tablet) 1 Tab Tab, 1 TAB PO BID, (Reported) Cholecalciferol (Vitamin D3) (Vitamin D3) 1,000 Unit Tablet, 1,000 UNITS PO DAILY, (Reported) Clopidogrel Bisulfate (Clopidogrel) 75 Mg Tablet, 75 MG PO DAILY, (Reported) Cyanocobalamin (Vitamin B-12) (Vitamin B-12) 1,000 Mcg Tab, 1,000 MCG PO DAILY, (Reported) Fluconazole (Fluconazole) 100 Mg Tablet, 100 MG PO DAILY Furosemide (Lasix) 40 Mg Tablet, 1 TAB PO 3XW Montelukast Sodium (Montelukast Sodium) 10 Mg Tablet, 10 MG PO DAILY Take one tab PO on days 1,8,15 every 21 days for three cycles, then on day 1 only (take on daratumumab days) Multivit-Min/Folic/Vit K/Lycop (Men's Multivitamin Tablet) 1 Each Tablet, 1 TAB PO DAILY, (Reported) Pantoprazole Sodium (Pantoprazole Sodium) 40 Mg Tab, 40 MG PO DAILY, (Reported) Polyethylene Glycol 3350 (Miralax) 1 Pow Pow, 17 GRAM PO DAILY, (Reported) MIX INTO ORANGE JUICE Prednisone (Prednisone) 20 Mg Tablet, 40 MG PO DAILY 2tabs daily x 7days then 1.5 tabs daily x 7 days then 1 tab daily x 7days then 0.5 tabs daily x 7 days then stop. Sulfamethoxazole/Trimethoprim (Sulfamethoxazole-Tmp Ds Tablet) 1 Each Tablet, 1 TAB PO 3XW, (Reported) MON, WED, FRI Scheduled PRN Ondansetron HCl (Ondansetron HCl) 8 Mg Tablet, 8 MG PO Q6H PRN for NAUSEA OR VOMITING Allergies Coded Allergies: lidocaine (Verified Allergy, Mild, SWEATY, FAINTING, 08/31/19) mepivacaine (Verified Allergy, Unknown, SWEATING, FAINTING, 08/31/19) tamsulosin (Verified Adverse Reaction, Intermediate, CONFUSION, 08/31/19) prednisone (Verified Adverse Reaction, Mild, CONFUSION, 08/31/19) donepezil (Verified Adverse Reaction, Unknown, HALLUCINATION, 08/31/19) erythromycin base (Verified Adverse Reaction, Unknown, HALLUCINATION, 08/31/19) simvastatin (Verified Adverse Reaction, Unknown, CONFUSION, 08/31/19) MAURICIO DAVIES MD Dec 14, 2019 23:44
--- NOTE | 2019-12-15 08:33 | CR ---
DATE: 12/03/2019 ATTENDING PHYSICIAN: Dr. Johnna Hughes REASON FOR CONSULTATION: Abnormal x-ray and hypoxemia. HISTORY OF PRESENT ILLNESS: Mr. Arzola is a delightfully pleasant 84-year-old gentleman with a longstanding history of myeloma, undergoing therapy. He said recently there was a discussion as to whether or not he should even stop his infusions due to question of progression. He has been feeling poorly for the last several months with increasing shortness of breath and cough. Chest x-ray shows progressive diffuse infiltrates, and upon presentation for infusion yesterday he was found to be hypoxic and was therefore admitted to the hospital. He tells me he does not feel any worse than he has all along. He has never had a fever. He was 85% on room air yesterday and is saturating reasonably well on several liters nasal cannula at the moment. He was empirically given antibiotics.. He had some chest pain several weeks ago but denies having significant cardiac issues. He said he has eating reasonably well. No issues with dysphagia. He has lost 15- 20 pounds over the last 4-6 weeks, however. ALLERGIES: Listed as LIDOCAINE, MEPIVACAINE, TAMSULOSIN, PREDNISONE, DONEPEZIL, ERYTHROMYCIN, and SIMVASTATIN. HOME MEDICATIONS: Acyclovir, aspirin, calcium, cholecalciferol, Plavix, Protonix, MiraLax, Crestor, and prophylactic Bactrim. MEDICAL HISTORY: Significant for: 1. Known multiple myeloma. 2. Previous vertebral fractures. 3. Peripheral neuropathy. 4. Aortic stenosis. 5. Mitral regurgitation. 6. BPH. 7. Peptic ulcer disease. 8, Iron deficiency. 9. Peripheral vascular disease status post femoral-popliteal bypass. 10. Previous superficial melanoma. 11. Previous gastrointestinal (GI) bleed. 12. History of a pulmonary embolus (PE). SOCIAL HISTORY: Lives here in the [facility]. Family nearby. No alcohol or tobacco. He has had multiple jobs through the years but no significant occupational or environmental exposures. FAMILY HISTORY: Noncontributory to his current illness. REVIEW OF SYSTEMS: As per history of present illness (HPI). CONSTITUTIONAL: Negative for any fever or chills. Significant for weight loss, however. HEENT: Otherwise unremarkable for headaches. PULMONARY: Significant as per the HPI. CARDIAC: Unremarkable for any known angina. GASTROINTESTINAL: Significant for his previous GI bleed. GENITOURINARY: Significant for his BPH. ALLERGIC: Unremarkable. RHEUMATOLOGIC: Unremarkable. PSYCHIATRIC: Unremarkable. HEMATOLOGIC: Significant for his multiple myeloma. MUSCULOSKELETAL: Unremarkable for any new arthralgias or myalgias. NEUROLOGIC: Unremarkable for any previous seizures or strokes. ENDOCRINE: Unremarkable for diabetes or thyroid disease. PHYSICAL EXAMINATION: This is a pleasant, elderly gentleman who appears his stated age, lying comfortably in bed. Blood pressure currently 123/60, heart rate generally in the 80s, regular. Peripheral pulse diminished but palpable. No obvious edema. HEENT is otherwise normocephalic, atraumatic. Pupils reactive Neck is supple. Trachea is midline. Chest shows diminished but symmetric breathing. On percussion decreased tactile fremitus palpable. There is no significant convincing adventitious breath sounds. Cardiac exam: Distant but regular. I do believe there is a systolic murmur. Peripheral pulses diminished but palpable. No obvious edema. Abdomen soft with active bowel sounds.no organomegaly, no masses. Extremities show no cyanosis or clubbing. Neurologically, he is awake, alert, and appropriate. Psychiatric shows normal mood and affect. Pulse oximetry currently 93% on 2 liters. LABORATORY DATA: Sodium 143, potassium 4.1, chloride 95, CO2 of 29, BUN 20, creatinine 1.13. White blood cell count 10.7, hemoglobin 8.3, platelet count 292,000, 72% segs. No bands. No CRP. Chest x-rays and CT scans reviewed for the last 6-8 weeks and do show progressive multifocal areas of what are likely infiltrate, first starting more in the left chest and now progressing to the right. IMPRESSION: 1. Hypoxemic respiratory failure, probably multifactorial 2. Abnormal CT scan, myeloma versus pneumonia. Cannot rule out pulmonary vascular congestion. 3. Underlying myeloma with ongoing therapy. RECOMMENDATIONS: At this point I am certainly in agreement with his broad- spectrum antimicrobials in view of his immunocompromised state from his myeloma; however, he does not act septic. His exam shows no significant egophony or suggestion of consolidation. It is quite conceivable this secondary to his myeloma. If it is truly progression despite therapy, patient said he has been considering stopping treatment and keeping himself comfortable, and this is a discussion he should have with his oncologist. At this point, I agree with getting him out of bed as soon as possible. Continue his broad-spectrum antimicrobials for now. We will check a C-reactive protein (CRP), which may or may not be helpful. Certainly switching him to oral antimicrobials at any point in time is not at all unreasonable. We will check a procalcitonin as well. Certainly if he remains afebrile and not toxic looking, he can be changed to oral antimicrobials and allowed discharge sooner rather than later. He will be followed while he is here in the hospital. Further recommendations will be made in the progress record as new information becomes available. CODY
[2019-12-17] MEDS ORDERED: AUGM875T28 PO (14:48)
--- NOTE | 2019-12-17 14:49 | IPNPDOC ---
Text Note Date of Service The patient was seen on 12/17/19. NOTE Procalcitonin came up very high. Spoke with Dr Kilgore and Dr Treadwell. extended antibiotics for another [address] Treadwell is going to send a referral to dr Chavis follow up. MAURICIO DAVIES MD Dec 17, 2019 14:49
--- NOTE | 2019-12-17 16:32 | ECGEPIP ---
[facility] - ED Test Date: 2019-12-02 Pat Name: ADRIAN PRASAD Department: Room: - Gender: Male Hand Turner: : 1935 Requested By: Chirag Arredondo Order Number: [id number] Reading MD: Rosa Cabrera Measurements Intervals [place] Rate: 100 P: VA: 0 QRS: -18 QRSD: 95 T: -7 QT: 337 QTc: 435 Interpretive Statements SINUS PACS MODERATE VOLTAGE CRITERIA FOR LVH, CONSIDER NORMAL VARIANT MINIMAL ST DEPRESSION ABNORMAL RHYTHM ECG SEE SCANNED DOWNTIME REPORT
--- NOTE | 2020-01-10 12:44 | CR ---
DATE: 12/04/2019 CURRENT DIAGNOSES: 1. Multiple myeloma. 2. Congestive heart failure with aortic stenosis and mitral incompetence. 3. Bilateral lung infiltrate, likely due to pneumonia. HISTORY OF PRESENT ILLNESS: Mr. 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 Patient also has refractory anemia. Patient initially was treated with lenalidomide and dexamethasone from October 2017 until April 2018. Then disease progressed and had radiation to the left hip for palliation for his pain in 2018. Patient was started on ixazomib and pomalidomide/dexamethasone from June 2019 until October 2019, stopped because of disease progression and increasing transfusion requirement. Lately patient has been on daratumumab as a single agent, but because of high volume he has been going into congestive heart failure because of volume overload. Patient has been followed by his wafer fabrication technician, and patient has severe aortic stenosis and mitral regurgitation and is being followed by his wafer fabrication technician. He is not a candidate for cardiac catheterization. Recently he is admitted because of increasing shortness of breath. On admission on 12/02/2019, he underwent chest x-ray and was found to have multifocal dense consolidation in the lung, which is entirely new since his comparison on 11/09/2019. He a little shortness of breath on minimal exertion, although he does not have fever, chills, or rigors. He has some cough with mucoid phlegm. He does not looks septic, and it seems like he has some low-grade infection or fungal infection causing pneumonia. He is immunocompromised. His activity level is limited because he had polio in the past, and he uses a walker and wheelchair for commute. Lately, he has not been getting any treatment for at least last 1 month, because he refused to undergo further treatment with daratumumab, as he goes into congestive heart failure because of high volume of daratumumab. PHYSICAL EXAMINATION: VITAL SIGNS: Stable per chart. He is afebrile. GENERAL: He is pale looking but no jaundice or cyanosis. No clubbing or koilonychia. HEENT: Within normal limits (WNL), extraocular movement intact (EOMI). Oral cavity clear. No mucositis or thrush. CARDIAC: Ejective systolic murmur at the aortic area and mitral area. ABDOMEN: Soft. Bowel sounds present. No hepatosplenomegaly. MUSCULOSKELETAL: Normal without any deformity. EXTREMITIES: Normal without any edema. SKIN: Clear and dry without rashes or lesions. LYMPH NODE SURVEY: Nonpalpable in cervical, supraclavicular, axillary, or inguinal region. NEUROLOGIC: No focal, sensory, or motor deficits. Cranial nerves (CN) II-XII intact. Patient has polio-associated weakening of the right leg and decreasing muscle mass. ASSESSMENT AND SUGGESTIONS: Mr. Marc is an 84-year-old white gentleman with multiple myeloma and has been on various modalities for the last 2 years. Lately he was started on daratumumab, but he could not tolerate it, and he refused further treatment. Currently, he is still refusing further treatment for multiple myeloma. Bilateral lung shadows are likely due to fungal infection or low-grade bacterial infection. Patient is in need of having bronchoalveolar lavage and bronchoscopy to see if there is any fungal infection ongoing. Patient will require pulmonary consultation for possible bronchoscopy and infectious disease consultation for possible fungal infection. IgG level should be checked, and if it is low patient should be given 40 grams of IVIG to improve his immune system. Once he recovers, he is suggested to have another opinion from [facility], as his daughter lives in [place], and it will be helpful to have another opinion for his multiple myeloma. CODY
== END 2019-12-06 15:25 | disposition home or self-care (01) | DRG 196 ==
LOC: M ED 10:24 → M ED INP 15:57 → ENRESERV 16:21 → M PCU 17:38 → M MSPAV 12-05 13:42
PROVIDERS: ADMIT Internal Medicine Nephrology; ATTEND Internal Medicine Nephrology
DX: J84.116 Cryptogenic organizing pneumonia (principal); I50.31 Acute diastolic (congestive) heart failure; J18.9 Pneumonia, unspecified organism; J96.01 Acute respiratory failure with hypoxia; E46 Unspecified protein-calorie malnutrition; C90.00 Multiple myeloma not having achieved remission; I08.0 Rheumatic disorders of both mitral and aortic valves; K21.9 Gastro-esophageal reflux disease without esophagitis; I73.9 Peripheral vascular disease, unspecified; I25.10 Atherosclerotic heart disease of native coronary artery without angina pectoris; Z79.899 Other long term (current) drug therapy; Z79.82 Long term (current) use of aspirin; Z88.8 Allergy status to other drugs, medicaments and biological substances; M19.90 Unspecified osteoarthritis, unspecified site; N40.0 Benign prostatic hyperplasia without lower urinary tract symptoms; D50.9 Iron deficiency anemia, unspecified; I11.0 Hypertensive heart disease with heart failure; E78.5 Hyperlipidemia, unspecified; K57.30 Diverticulosis of large intestine without perforation or abscess without bleeding; Z86.711 Personal history of pulmonary embolism